=== PATIENT | female | born 1950 | race Caucasian/White ===

== ENCOUNTER → 2016-06-28 | Outpatient (CLI) | payer MEDICARE ==
--- NOTE | 2016-07-04 10:51 | P.ARTDOP ---
Arterial Doppler LOWER EXTREMITY ARTERIAL DOPPLER: DATE OF SERVICE: 06/28/2016 Reason for study: Leg pain. Doppler waveforms: Multiphasic bilaterally throughout. Pulse volume recording: Normal configuration. Pressure gradients: Only at the foot level. Ankle-brachial indices: Greater than 1 bilaterally. Toe pressures: 58 on the right, 66 on the left Impression: Proximally a totally normal study. Decreased toe pressures could relate to distal disease, but more likely is related to physiologic vasospastic phenomenon..
== END | disposition home or self-care (01) ==
LOC: RADUSWWP 12:26
PROVIDERS: ATTEND Family Medicine
DX: R20.2 Paresthesia of skin (principal)
CPT/HCPCS: 93923

== ENCOUNTER 2019-02-11 19:46 | Emergency (ER) | payer MEDICARE, OTHER ==
[2019-02-11 19:54] VITALS: RESP 18
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
--- NOTE | 2019-02-11 21:16 | XR ---
EXAM: XR Left Hip With Pelvis When Performed, 2 or 3 Views CLINICAL HISTORY: Pain TECHNIQUE: Two or three views of the left hip, with pelvis when performed. COMPARISON: No relevant prior studies available. FINDINGS: Bones/joints: No acute fracture or dislocation. Soft tissues: Unremarkable. IMPRESSION: No acute fracture or dislocation.
[2019-02-11 21:35] VITALS: BP 136/78; PULSE 82; TEMP 97.9
== END 2019-02-11 21:35 | disposition home or self-care (01) ==
LOC: EC 19:46
DX: S70.02XA Contusion of left hip, initial encounter (principal); F17.200 Nicotine dependence, unspecified, uncomplicated; Z88.5 Allergy status to narcotic agent; V49.49XA Driver injured in collision with other motor vehicles in traffic accident, initial encounter; Y92.410 Unspecified street and highway as the place of occurrence of the external cause
CPT/HCPCS: 73502; 99284

== ENCOUNTER → 2019-07-09 | Outpatient (CLI) | payer MEDICARE, OTHER ==
--- NOTE | 2019-07-13 09:04 | MM ---
Reason for exam: screening (asymptomatic). Last mammogram was performed 3 years ago. History: Family history of breast cancer in maternal aunt. Benign cyst aspiration of the right breast. Benign excisional biopsy of the left breast. Physical Findings: A clinical breast exam by your physician is recommended on an annual basis and results should be correlated with mammographic findings. MG 3D Screening Mammo W/Cad Bilateral CC and MLO view(s) were taken. Prior study comparison: July 24, 2016, mammogram, performed at [facility]. Focal asymmetry with calcifications. Additional work up recommended. ASSESSMENT: Incomplete: need additional imaging evaluation, BI-RAD 0 RECOMMENDATION: Special view mammogram of the left breast. If lesion persists on supplemental views, image directed ultrasound is recommended. [facility] will attempt to contact patient to return for supplemental views and ultrasound if indicated.
== END | disposition home or self-care (01) ==
LOC: RADMAMWWP 13:43
PROVIDERS: ATTEND Family Medicine
DX: Z12.31 Encounter for screening mammogram for malignant neoplasm of breast (principal); Z80.3 Family history of malignant neoplasm of breast
CPT/HCPCS: 77063; 77067

== ENCOUNTER → 2019-07-22 | Outpatient (CLI) | payer MEDICARE, OTHER ==
--- NOTE | 2019-07-23 08:40 | MM ---
Reason for exam: additional evaluation requested from abnormal screening. Last mammogram was performed less than 1 month ago. History: Patient is postmenopausal. Family history of breast cancer in maternal aunt. Benign cyst aspiration of the right breast. Benign excisional biopsy of the left breast. Physical Findings: Nurse did not find any significant physical abnormalities on exam. MG 3D Work Up W/Cad LT CC with magnification, LM with magnification, and LM view(s) were taken of the left breast. Prior study comparison: July 09, 2019, bilateral MG 3d screening mammo w/cad. July 24, 2016, mammogram, performed at [facility]. The breast tissue is heterogeneously dense. This may lower the sensitivity of mammography. There are linear calcifications spanning 9mm in the lower outer quadrant at middle depth. Indeterminate, biopsy recommended. These results were verbally communicated with the patient and result sheet given to the patient on 07/22/19. ASSESSMENT: Suspicious, BI-RAD 4 RECOMMENDATION: Stereotactic core biopsy of the left breast. Called office with mammographic findings and has scheduled an appointment for the patient for 09/10/19 at 10:[address] Carranza. Biopsy scheduled for 09/11/19. PRELIMINARY REPORT CALLED AND FAXED TO DR. CARRANZA ON 07/23/19.
== END | disposition home or self-care (01) ==
LOC: RADMAMWWP 14:09
PROVIDERS: ATTEND Family Medicine
DX: R92.8 Other abnormal and inconclusive findings on diagnostic imaging of breast (principal)
CPT/HCPCS: 77065; G0279; 77061

== ENCOUNTER → 2019-09-10 | Outpatient (CLI) | payer MEDICARE, OTHER ==
[2019-09-10 10:24] VITALS: BP 95/64; PULSE 64; RESP 14; TEMP 97.3
--- NOTE | 2019-09-10 10:32 | P.GSHP ---
History of Present Illness H&P Date: 09/10/19 Chief Complaint: abnormal mammogram of the left breast Lorie is a 69-year-old white femal seen in consultation for Dr. Parr who [place] [address]. This revealed some focal asymmetry with calcifications and additional views of the left breast was recommended. Nothing of concern was noted in the right breast. The patient had additional views of the left breast performed on 120 920. This revealed linear calcifications spanning 9 mm in the lower outer quadrant at middle depth. Biopsy was recommended. The patient does not feel any masses lumps or nodules in her breast. She does complain of some recent intermittent fleeting discomfort in both breasts. In the right breast is started at the nipple area in the left breast was in the upper quadrant area portion. She does not take any hormone replacement therapy. She had a left breast biopsy 15 years ago in the operating room, no cancer. Caffeine: none smoke: 6/day smoking since 19, 50 years chocolate: daily Family History: maternal aunt: breast cancer brother: colon/liver/lung cancer Hormonal History: menarche: 19 , first born at 21, breast fed: none menopause: partial hysterectomy at 46, did not take ovaries done for endometriosis BCP: 1 year hormones: none Surgical History: 1. Hysterectomy 2. back surgery 3. left breast biopsy 15 years ago 4. needle biopsy on the right breast 5. tubaligation Medical History: 1. hypothyroid 2. COPD Social History: smoke: 50 years; 1?PPD now only 6 cigarettes/day alcohol: none drugs: none - Constitutional Constitutional: Reports sweats, Denies chills, Denies fever - EENT Comment: cataract surgery bilateral Eyes: denies blurred vision, denies pain Ears: deny: decreased hearing, tinnitus Ears, nose, mouth and throat: Denies headache, Denies sore throat - Breasts Breasts: bilateral: as per HPI - Cardiovascular Cardiovascular: Reports shortness of breath, Denies chest pain - Respiratory Comment: COPD - Gastrointestinal Gastrointestinal: Denies abdominal pain, Denies diarrhea, Denies nausea, Denies vomiting - Genitourinary (Female) Genitourinary: Denies dysuria, Denies hematuria - Menstruation Menstruation: Reports post hysterectomy - Musculoskeletal Comment: back surgery - Integumentary Integumentary: Denies pruritus, Denies rash - Neurological Neurological: Denies numbness, Denies weakness - Psychiatric Psychiatric: Denies anxiety, Denies depression - Endocrine Comment: hypothyroid - Hematologic/Lymphatic Comment: aspirin - Allergic/Immunologic Allergic/Immunologic: Reports as per HPI Past Medical History Past Medical History: COPD, Thyroid Disorder History of Any Multi-Drug Resistant Organisms: None Reported Past Surgical History: Breast Surgery, Hysterectomy, Tubal Ligation Past Psychological History: No Psychological Hx Reported Smoking Status: Current every day smoker Past Alcohol Use History: None Reported Past Drug Use History: None Reported Medications and Allergies Home Medications Medication Instructions Recorded Confirmed Type Aspirin [Adult Low Dose Aspirin EC] 81 mg PO DAILY 08/24/19 08/24/19 History Famotidine [Pepcid] 40 mg PO HS 08/24/19 08/24/19 History Fluticasone/Umeclidin/Vilanter 1 inhalation INHALATION DAILY 08/24/19 08/24/19 History [Trelegy Ellipta 100-62.5-25] Levothyroxine Sodium [Levoxyl] 75 mcg PO DAILY 08/24/19 08/24/19 History Montelukast [Singulair] 10 mg PO HS 08/24/19 08/24/19 History PARoxetine HCL [Paxil] 40 mg PO DAILY 08/24/19 08/24/19 History Allergies Allergy/AdvReac Type Severity Reaction Status Date / Time meperidine [From Demerol] Allergy Itching Verified 09/10/19 10:09 morphine Allergy Itching Verified 09/10/19 10:09 codeine AdvReac Nausea & Verified 09/10/19 10:09 Vomiting Surgical - Exam BMI 25.5 - General well developed, well nourished, no distress - Eyes normal ocular movement - ENT no hearing loss, no congestion - Neck no masses, trachea midline - Respiratory normal respiratory effort, clear to auscultation - Cardiovascular Rhythm: regular Heart Sounds: normal: S1, S2 - Abdomen Abdomen: soft, non tender, no guarding, no rigid, no rebound - Integumentary tattoo left breast - Neurologic no disoriented, no combative - Musculoskeletal normal gait, normal posture - Psychiatric oriented to time, oriented to person, oriented to place, speech is normal, memory intact breast exam: BRA 40C inspection tattoo left breast, no nipple inversion Palpation: right breast: Multi-positional exam fibrocystic changes, no dominant masses or nodules of concern Right axilla: No adenopathy of concern Left breast: Tattoo, multiple positional exam no dominant masses or nodules of concern Left axilla: No adenopathy of concern Results mammogram results reviewed abnormal left breast Assessment and Plan Assessment: Impression: 1. Abnormal left breast mammogram 2. Fibrocystic breast changes 3. COPD 4. Aspirin which patient has stopped approximately [id number] 5. Hypothyroid Plan: 1. Stereotactic core biopsy left breast 2. discussed and counselled to stop smoking 3. medical management of medical problems Risks and benefits of stereotactic core biopsy as well as alternatives are discussed with Lorie. Risks include but are not limited to bleeding, infection, or inability to sample the correct area. She understands that if this reveals atypia or is discordant that open biopsy could be recommended. Additionally she stopped her aspirin prior to the procedure. Alternatives would include open surgical biopsy or watchful waiting and at this time they're not recommended. encounter 35 minutes, > 50% of time spent in planning and counselling CC: Amadou Singh, Dr. Parr Time with Patient: Greater than 30
== END ==
LOC: WWCWWP 10:00
PROVIDERS: ATTEND Surgery
DX: Z53.9 Procedure and treatment not carried out, unspecified reason (principal)

== ENCOUNTER → 2019-09-11 | Day surgery (SDC) | payer MEDICARE, OTHER ==
[2019-09-11 07:27] VITALS: RESP 16; TEMP 97.9
--- NOTE | 2019-09-11 09:15 | P.PCN ---
Date of Procedure: 09/11/19 Preoperative Diagnosis: Microcalcifications of concern left breast Postoperative Diagnosis: same Procedure(s) Performed: Stereotactic core biopsy left breast Anesthesia: local Surgeon: Carito Carranza Pathology: other (Breast tissue) Condition: stable Disposition: same day Indications for Procedure: Microcalcifications of concern left breast Operative Findings: Radiograph of the left breast specimen did not reveal calcifications of concern Description of Procedure: Lorie is a 69-year-old white female who on a mammogram was noted to have in the left breast linear calcifications spanning 9 mm in the lower outer quadrant at middle depth. The patient had a second area of calcifications in proximity to this and after review with radiology it was felt that the linear calcification should be sampled and then depending on results if they were positive resection in the operating room of both areas of calcifications were negative a stereo biopsy of the second area of calcifications. The patient understood risks and benefits and wished to proceed. The patient was taken to the stereotactic biopsy room and a bench inspector film was performed. The area of linear calcifications was identified however there were blood vessels in the vicinity and the bench inspector x-ray had to be re-done. It was felt that the vessels were far enough away that we could approach the linear calcifications. A stereo pair was performed and the calcifications were [place]. The breast was prepped using Betadine. 20 mL of 1% lidocaine 10 of which had epinephrine were used to anesthetize the area. An 18-gauge needle which was vacuumed of vacuum-assisted core rotating's biopsy device was given to the correct coordinates. Postoperative film was obtained. 12 core biopsies were obtained. The patient did move during the procedure. The specimen did not reveal the calcifications. The area was attempted to be re-targeted however after review with the radiologist it was felt that there were too many vessels in the vicinity and the patient will be best served by needle localization and excisional biopsy of both the linear calcifications and the area of microcalcifications in proximity to this in the operating room. The patient understands the risks and benefits and this will be scheduled in the near future. Scheduling this contingent on operative waiting room availability secondary to elective cases been postponed at this time because of the corna virus. The patient tolerated the procedure in stable condition. The specimens obtained were sent to pathology. The patient will have a repeat follow-up scheduled for approximately 1 month again depending on coronavirus situation. Plan is that the patient will undergo needle localization and excisional biopsy of the areas of concern in the left breast.
[2019-09-11 09:38] VITALS: BP 117/78; PULSE 61
--- NOTE | 2019-09-11 10:03 | MM ---
EXAMINATION TYPE: MG stereo VAD BX LT DATE OF EXAM: 09/11/2019 COMPARISON: 07/22/2019 CLINICAL HISTORY: Abnormal mammogram. Linear calcifications at the lower outer quadrant at middle dep th spanning 9 mm for which dedicated guided biopsy was recommended. TECHNIQUE: Stereotactic guided core biopsy of left breast. FINDINGS: The procedure of stereotactic guided core biopsy was explained to the patient. Benefits, a lternatives, and risks were discussed. An informed consent was then obtained. Preprocedural timeout was performed. The [facility] pathway for biopsy was chosen. Shortness pathway was CC from below approach. I perform ed the localization, then surgeon, Dr. Gwyn Gamble performed the remainder of the procedure. A vacuum assisted biopsy gun was used to obtain multiple core samples. However targeted calcifications were n ot identified in the specimen radiograph. Repositioning was performed however due to the patient's lo w blood pressure and surrounding vasculature as well as more ill-defined calcifications after the adm inistration of lidocaine, the procedure was discontinued. Dr. Gwyn Gamble discussed this with the manny ent and the patient will be taken to the OR for needle localization. The patient was kept in the radiology department for short stay after the procedure and then discharg ed home in stable condition. Post biopsy mammogram shows the clip to appear in posterior to the [place] calcifications on the preprocedure images. IMPRESSION: UNSUCCESSFUL STEREOTACTIC GUIDED CORE BIOPSY OF A LINEAR 9 MM GROUP OF CALCIFICATIONS IN THE LOWER OU TER QUADRANT OF THE LEFT BREAST, FULL PATHOLOGY RESULTS TO FOLLOW. THE NEED FOR NEEDLE LOCALIZATION WAS DISCUSSED WITH THE PATIENT BY DR. GWYN GAMBLE.
== END ==
LOC: RADMAMWWP 06:53
PROVIDERS: ATTEND Surgery
DX: N60.12 Diffuse cystic mastopathy of left breast (principal); R92.8 Other abnormal and inconclusive findings on diagnostic imaging of breast; N60.82 Other benign mammary dysplasias of left breast; N64.1 Fat necrosis of breast
CPT/HCPCS: 88305; 19081; A4648; J2001

== ENCOUNTER → 2019-11-13 | Outpatient (CLI) | payer MEDICARE, OTHER ==
--- NOTE | 2019-09-22 13:21 | P.PN ---
Progress Note - Text Progress Note Date: 09/22/19 The patient's pathology results reviewed with her. She did move when she was on the stereo table and we were not satisfied that we got hr representative tissue. She is scheduled for needle local excisional biopsy in the operating room. Pathology did reveal benign breast with fibrocystic changes and did have some microcalcifications present. Again we were concerned that we did not have specific hr representative tissue and she is scheduled for needle localized open biopsy in the operating room. She is aware and will be seen the week prior to the biopsy. She is not coming in at this time secondary to concerns regarding the vaughan virus.
[2019-11-13 15:40] VITALS: BP 118/80; PULSE 77; RESP 20; TEMP 98.6
--- NOTE | 2019-11-13 16:13 | P.PN ---
Subjective Progress Note Date: 11/13/19 Principal diagnosis: failed attempt at stero biopsy Lorie is a 69-year-old white female seen in consultation for Dr. Parr who had [place] [address]. This revealed some focal asymmetry with calcifications in the left breast, and a dditional views of the left breast were recommended. Nothing of concern was noted in the right breast. The patient [place] [id number]. This revealed linear calcifications spanning 9 mm in the lower outer quadrant at middle depth. Biopsy was recommended. The patient did not feel any masses lumps or nodules in her breast. She did complain of some recent intermittent fleeting discomfort in both breasts. In the right breast it started at the nipple area; in the left breast it was in the upper quadrant area portion. She does not take any hormone replacement therapy. An attempt at a stero bipsy was done on 09-11-19. The patient moved and the lesion was not felt to be adequetly targeted. There were also felt to be too many vessels in the area after review with radiology. One area was biopsied which was benign, however there was concern that the frontal area of concern had been sampled this was reviewed with radiology. There is felt to be more than one area in the breast and the patient is planning to have needle localization and excisional biopsy of all areas of concern in the left breast. She had a left breast biopsy 15 years ago in the operating room, no cancer. Caffeine: none smoke: 6/day smoking since 19, 50 years chocolate: daily Family History: maternal aunt: breast cancer brother: colon/liver/lung cancer Hormonal History: menarche: 19 , first born at 21, breast fed: none menopause: partial hysterectomy at 46, did not take ovaries done for endometriosis BCP: 1 year hormones: none Surgical History: 1. Hysterectomy 2. back surgery 3. left breast biopsy 15 years ago 4. needle biopsy on the right breast 5. tubaligation Medical History: 1. hypothyroid 2. COPD Social History: smoke: 50 years; 1/PPD now only 6 cigarettes/day alcohol: none drugs: none - Constitutional Constitutional: Reports sweats, Denies chills, Denies fever - EENT Comment: cataract surgery bilateral Eyes: denies blurred vision, denies pain Ears: deny: decreased hearing, tinnitus Ears, nose, mouth and throat: Denies headache, Denies sore throat - Breasts Breasts: bilateral: as per HPI - Cardiovascular Cardiovascular: Reports shortness of breath, Denies chest pain - Respiratory Comment: COPD, smoker - Gastrointestinal Gastrointestinal: Denies abdominal pain, Denies diarrhea, Denies nausea, Denies vomiting - Genitourinary (Female) Genitourinary: Denies dysuria, Denies hematuria - Menstruation Menstruation: Reports post hysterectomy - Musculoskeletal Comment: back surgery - Integumentary Integumentary: Denies pruritus, Denies rash - Neurological Neurological: Denies numbness, Denies weakness - Psychiatric Psychiatric: Denies anxiety, Denies depression - Endocrine Comment: hypothyroid - Hematologic/Lymphatic Comment: aspirin - Allergic/Immunologic Allergic/Immunologic: Reports as per HPI Past Medical History Past Medical History: COPD, Thyroid Disorder History of Any Multi-Drug Resistant Organisms: None Reported Past Surgical History: Breast Surgery, Hysterectomy, Tubal Ligation Past Psychological History: No Psychological Hx Reported Smoking Status: Current every day smoker Past Alcohol Use History: None Reported Past Drug Use History: None Reported Medications and Allergies Home Medications Medication Instructions Recorded Confirmed Type Aspirin [Adult Low Dose Aspirin EC] 81 mg PO DAILY 08/24/19 08/24/19 History Famotidine [Pepcid] 40 mg PO HS 08/24/19 08/24/19 History Fluticasone/Umeclidin/Vilanter 1 inhalation INHALATION DAILY 08/24/19 08/24/19 History [Trelegy Ellipta 100-62.5-25] Levothyroxine Sodium [Levoxyl] 75 mcg PO DAILY 08/24/19 08/24/19 History Montelukast [Singulair] 10 mg PO HS 08/24/19 08/24/19 History PARoxetine HCL [Paxil] 40 mg PO DAILY 08/24/19 08/24/19 History Allergies Allergy/AdvReac Type Severity Reaction Status Date / Time meperidine [From Demerol] Allergy Itching Verified 09/10/19 10:09 morphine Allergy Itching Verified 09/10/19 10:09 codeine AdvReac Nausea & Verified 09/10/19 10:09 Vomiting Objective - Vital Signs Vital signs: Vital Signs Temp 98.6 F 11/13/19 15:37 Pulse 77 11/13/19 15:37 Resp 20 11/13/19 15:37 BP 118/80 11/13/19 15:37 Pulse Ox 95 11/13/19 15:37 Intake & Output 11/12/19 11/13/19 11/13/19 18:59 06:59 18:59 Weight 63.503 kg - Exam BMI 26 - Constitutional General appearance: Present: average body habitus - EENT Eyes: Present: EOMI ENT: Present: hearing grossly normal - Respiratory Respiratory: bilateral: CTA - Cardiovascular Rhythm: regular Heart sounds: normal: S1, S2 - Gastrointestinal General gastrointestinal: Present: normal bowel sounds, soft - Integumentary Integumentary: Present: normal turgor - Musculoskeletal Musculoskeletal: Present: gait normal - Psychiatric Psychiatric: Present: A&O x's 3, appropriate affect, intact judgment & insight - Additional findings Additional findings: breast exam: Problem: 40C Inspection: Ptosis grade 2, no nipple inversion Palpation: Right breast: Multi-positional exam no dominant masses or nodules of concern Right axilla: No adenopathy of concern Left breast: Multi-positional exam no dominant masses or nodules of concern Left axilla: No adenopathy of concern Assessment and Plan Assessment: Impression: 1. Radiographic abnormality left breast 2. Failed stereotactic core biopsy 3. COPD Plan: 1. Needle localization excisional biopsy left breast with possible chondroplasty tissue transfer 2. clearance from Dr. Parr CC: Daniella Metzger encounter 20 minutes, > 50% of time in planning and counselling Time with Patient: Less than 30
== END | disposition home or self-care (01) ==
LOC: WWCWWP 15:32
PROVIDERS: ATTEND Surgery
DX: Z53.9 Procedure and treatment not carried out, unspecified reason (principal)

== ENCOUNTER → 2019-12-08 | Day surgery (SDC) | payer MEDICARE, OTHER ==
[2019-12-07 09:40] VITALS: BMI 27.6
[~2019-12-08] MED LIST: DEXAMETHASONE SOD PHOSPHATE 10 MG/ML 1 ML VIAL IV ONE; HEPARIN SODIUM,PORCINE 5,000 UNIT/ML 1 ML VIAL SQ ONE; HYDROmorphone 0.5 MG/0.5 ML SYRINGE IVP ONE; LACTATED RINGERS 1,000 ML IV ONE; LACTATED RINGERS 1,000 ML IV SCH; LIDOCAINE 1% (10MG/ML) FOR IV START INTRADERMA PRN; LIDOCAINE 1% INJ 10MG/ML (20 ML MDV) ONE; LIDOCAINE 1% INJ 10MG/ML (20 ML MDV) SQ ONE; MIDAZOLAM 2 MG/2 ML VIAL ONE; ONDANSETRON 4 MG/2 ML VIAL IVP ONE; PROPOFOL 10 MG/ML 20 ML VIAL IV ONE; SCOPOLAMINE 1.5MG/72HR PATCH TRANSDERM ONE; ePHEDrine SULFATE/0.9% NACL/PF 50 MG/5 ML SYRINGE IV ONE; fentaNYL (PF) 50 MCG/ML 2 ML AMP IV PRN; fentaNYL (PF) 50 MCG/ML 2 ML AMP ONE
--- NOTE | 2019-12-08 14:33 | P.OP ---
Date of Procedure: 12/08/19 Preoperative Diagnosis: Microcalcifications of concern left breast/failed stereotactic core biopsy Postoperative Diagnosis: Same Procedure(s) Performed: Needle localization excisional biopsy, onco-plastic tissue transfer Anesthesia: GETA Surgeon: Carito Carranza Estimated Blood Loss (ml): 5 IV fluids (ml): 600 Pathology: other (breast tissue) Condition: stable Disposition: same day Indications for Procedure: Suspicious microcalcifications left breast/failed stereotactic core biopsy Operative Findings: Fibrofatty breast tissue Description of Procedure: The patient is a 69-year-old white female with mammographic abnormality of microcalcifications of concern in the left breast. The patient underwent a attempted stereotactic core biopsy which was unsuccessful. She was therefore recommended to undergo localization and excision in the operating room. Following needle localization of area of concern in the left breast the patient was brought to the operating room. The left breast was prepped and draped in a sterile fashion. A vertical incision was made in the inferior breast and the was identified. Surrounding tissue was excised. Medial and lateral pedicles and breast tissue were freed. Approximately 40 mL of tissue was freed. Approximately 20 mL 20 mL laterally. Following this after the specimen was painted for orientation. A radiograph the specimen revealed the area of concern about removed was obtained. The pedicles of tissue brought together using 3-0 Vicryl suture. The skin was then reapproximated using subcutaneous 3-0 Vicryl suture 4-0 subcuticular Monocryl suture. Steri-Strips were applied. The patient tolerated the procedure in stable condition.
--- NOTE | 2019-12-08 14:34 | P.DS ---
Providers Attending physician: Carito Carranza Primary care physician: Shanika Parr Plan - Discharge Summary Discharge Rx Participant: Yes New Discharge Prescriptions: No Action Montelukast [Singulair] 10 mg PO HS Famotidine [Pepcid] 40 mg PO HS PARoxetine HCL [Paxil] 40 mg PO QAM Fluticasone/Umeclidin/Vilanter [Trelegy Ellipta 100-62.5-25] 1 inhalation INHALATION HS Levothyroxine Sodium [Synthroid] 50 mcg PO DAILY Discharge Medication List Famotidine [Pepcid] 40 mg PO HS 08/24/19 [History] Fluticasone/Umeclidin/Vilanter [Trelegy Ellipta 100-62.5-25] 1 inhalation INHALATION HS 08/24/19 [History] Montelukast [Singulair] 10 mg PO HS 08/24/19 [History] PARoxetine HCL [Paxil] 40 mg PO QAM 08/24/19 [History] Levothyroxine Sodium [Synthroid] 50 mcg PO DAILY 12/07/19 [History] Follow up Appointment(s)/Referral(s): Carito Carranza MD [STAFF PHYSICIAN] - 1 Week Activity/Diet/Wound Care/Special Instructions: Do not drive until seen by Dr. Pascal May shower after 48 hours Wear bra all times Discharge Disposition: HOME SELF-CARE
[2019-12-08 14:49] VITALS: RESP 16; TEMP 97.8
--- NOTE | 2019-12-08 14:55 | MM ---
EXAMINATION TYPE: MG pre op needle loc LT, MG surgical specimen LT DATE OF EXAM: 12/08/2019 12:56 PM COMPARISON: NONE HISTORY: Microcalcifications left breast Informed consent was obtained and all the patient's questions were answered. The macrocalcifications in question was localized mammographically. The standard sterile technique was utilized, as well as appropriate local anesthesia with 1% Lidocaine.. Localization needle followed by placement of a guidewire was performed under mammographic guidance. Verification images demonstrate appropriate deployment of the guidewire. The patient tolerated the procedure well and left the department in stable condition. Specimen radiograph demonstrates the microcalcifications in question to reside within the specimen. IMPRESSION: Successful needle localization and open biopsy left breast with pathology results pending . 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 See Surgical Pathology Cancer Case Summary and Comment. Recommendation Surgical consult of the left breast. MOSES
[2019-12-08 15:39] VITALS: BP 126/71; PULSE 75
--- NOTE | 2019-12-15 10:32 | MM ---
MG Surgical Specimen LT EXAMINATION TYPE: MG pre op needle loc LT, MG surgical specimen LT DATE OF EXAM: 12/08/2019 12:56 PM COMPARISON: NONE HISTORY: Microcalcifications left breast Informed consent was obtained and all the patient's questions were answered. The macrocalcifications in question was localized mammographically. The standard sterile technique was utilized, as well as appropriate local anesthesia with 1% Lidocaine.. Localization needle followed by placement of a guidewire was performed under mammographic guidance. Verification images demonstrate appropriate deployment of the guidewire. The patient tolerated the procedure well and left the department in stable condition. Specimen radiograph demonstrates the microcalcifications in question to reside within the specimen. IMPRESSION: Successful needle localization and open biopsy left breast with pathology results pending. RECOMMENDATION: Surgical consultation of the left breast. Oncologic management. YENYD
== END | disposition home or self-care (01) ==
LOC: OR 09:32
PROVIDERS: ATTEND Surgery
DX: C50.912 Malignant neoplasm of unspecified site of left female breast (principal); E03.9 Hypothyroidism, unspecified; J43.9 Emphysema, unspecified; F17.210 Nicotine dependence, cigarettes, uncomplicated; N64.81 Ptosis of breast; K08.109 Complete loss of teeth, unspecified cause, unspecified class; E78.5 Hyperlipidemia, unspecified; Z17.1 Estrogen receptor negative status [ER-]; Z88.5 Allergy status to narcotic agent; Z98.890 Other specified postprocedural states; Z90.710 Acquired absence of both cervix and uterus; Z87.42 Personal history of other diseases of the female genital tract; Z98.51 Tubal ligation status; Z98.41 Cataract extraction status, right eye; Z98.42 Cataract extraction status, left eye; Z79.82 Long term (current) use of aspirin; Z79.899 Other long term (current) drug therapy; Z79.51 Long term (current) use of inhaled steroids; Z79.890 Hormone replacement therapy; Z80.3 Family history of malignant neoplasm of breast; Z80.0 Family history of malignant neoplasm of digestive organs; Z80.1 Family history of malignant neoplasm of trachea, bronchus and lung
CPT/HCPCS: 19125; 88342; 88307; 88341; 76098; 19281; J2250; J1644; J1100; J2405; J2001; J3010; J2704; J1170

== ENCOUNTER → 2019-12-17 | Outpatient (CLI) | payer MEDICARE, OTHER ==
[2019-12-17 15:49] VITALS: BP 97/75; PULSE 78; RESP 20; TEMP 98.2
--- NOTE | 2019-12-17 16:00 | P.PN ---
Progress Note - Text Progress Note Date: 12/17/19 Lorie is a 69 year old white female status post a left breast needle local excisional biopsy of an area of concern. Pathology came back as invasive moderately differentiated ductal carcinoma grade 2 and high-grade DCIS, margins were negative. The lesion is ER/AR negative and HER-2 positive. It is a grade 2 lesion. The DCIS component is 1 mm from the superior margin. Of concern is the fact that the patient has a second area of calcification of concern in the breast for which biopsy would be recommended depending on the results of biopsy of this area. Biopsy can be attempted again stereotactic method versus open biopsy. After discussion with the patient we are going to attempt a stereo biopsy of the second area in the left breast. Secondary to the recent surgery this was performed in approximately 1 month. She understands that if this comes back negative still potentially recommend a sentinel node biopsy. We have discussed treatment options for cancer which would include mastectomy, and sentinel node biopsy, possible axillary node disection; plus or minus reconstruction versus radiation therapy and sentinel node biopsy. The patient understands the risks and benefits and wishes to proceed with attempt of stero biopsy, and follow with sentinal node biopsy. The patient is doing well post lumpectomy of the left breast. Risks and benefits of stereo biopsy as well as sentinel node biopsy have been discussed with the patient She understands and wishes to proceed at this time with stereo biopsy. Physical exam: Incision clean and dry inferior aspect of left breast Resolving ecchymosis the biopsy site Impression: 1. Stage IA, left breast cancer 2. second area of concern on mammogram of the left breast Plan: 1. Stereo biopsy of the left breast 2. [place] node biopsy after results of the left breast stereo biopsy 3. Patient may outflow mastectomy after results of stereo biopsy CC: DR. Keshav Zee encounter 30 minutes, > 50 % of time in planning and counselling
== END | disposition home or self-care (01) ==
LOC: WWCWWP 15:13
PROVIDERS: ATTEND Surgery
DX: Z53.9 Procedure and treatment not carried out, unspecified reason (principal)

== ENCOUNTER → 2020-01-21 | Day surgery (SDC) | payer MEDICARE, OTHER ==
[2020-01-21 07:30] VITALS: BP 93/66; PULSE 75; RESP 16; TEMP 98.1
--- NOTE | 2020-01-21 09:00 | P.PN ---
Subjective Progress Note Date: 01/21/20 Principal diagnosis: left breast Stage IA breast cancer Lorie is a 69-year-old white female seen in consultation for Dr. Parr who [place] [address]. This revealed some focal asymmetry with calcifications and additional views of the left breast was recommended. Nothing of concern was noted in the right breast. The patient [place] [address]. This revealed linear calcifications spanning 9 mm in the lower outer quadrant at middle depth. Biopsy was recommended. The patient does not feel any masses lumps or nodules in her breast. She does complain of some recent intermittent fleeting discomfort in both breasts. In the right breast is started at the nipple area in the left breast was in the upper quadrant area portion. She does not take any hormone replacement therapy. She underwent an attempted stereotactic core biopsy of the left breast on 09-11-19, the patient however moved to do the procedure and it was felt that we did not adequately sample the area of concern. Pathology from that revealed reactive metaplastic changes and fat necrosis. Secondary to covid under needle localization and excisional biopsy was performed until 12-08-19. 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 The margins were negative. The tumor size was 7 mm this was grade 2 there was noted to be extensive DCIS. The margins were however negative. This was ER/VT negative and HER-2/geo positive. Her case was presented at tumor board on 0420. Recommendation was for stereotactic core biopsy of this secondary of calcifications of biopsy positive the mastectomy with sentinel node biopsy. If biopsy was negative the lumpectomy with sentinel node biopsy. Initially there was some concern that there was a second area of calcification which were biopsied the left breast, however on attempted stereo biopsy of this area repeat mammogram did not reveal any area of concern as per Dr. Bustillo. She had a left breast biopsy 15 years ago in the operating room, no cancer. Caffeine: none smoke: 6/day smoking since 19, 50 years chocolate: daily Family History: maternal aunt: breast cancer brother: colon/liver/lung cancer Hormonal History: menarche: 19 , first born at 21, breast fed: none menopause: partial hysterectomy at 46, did not take ovaries done for endometriosis BCP: 1 year hormones: none Surgical History: 1. Hysterectomy 2. back surgery 3. left breast biopsy 15 years ago 4. needle biopsy on the right breast 5. tubaligation Medical History: 1. hypothyroid 2. COPD Social History: smoke: 50 years; 1?PPD now only 6 cigarettes/day alcohol: none drugs: none - Constitutional Constitutional: Reports sweats, Denies chills, Denies fever - EENT Comment: cataract surgery bilateral Eyes: denies blurred vision, denies pain Ears: deny: decreased hearing, tinnitus Ears, nose, mouth and throat: Denies headache, Denies sore throat - Breasts Breasts: bilateral: as per HPI - Cardiovascular Cardiovascular: Reports shortness of breath, Denies chest pain - Respiratory Comment: COPD - Gastrointestinal Gastrointestinal: Denies abdominal pain, Denies diarrhea, Denies nausea, Denies vomiting - Genitourinary (Female) Genitourinary: Denies dysuria, Denies hematuria - Menstruation Menstruation: Reports post hysterectomy - Musculoskeletal Comment: back surgery - Integumentary Integumentary: Denies pruritus, Denies rash - Neurological Neurological: Denies numbness, Denies weakness - Psychiatric Psychiatric: Denies anxiety, Denies depression - Endocrine Comment: hypothyroid - Hematologic/Lymphatic Comment: aspirin - Allergic/Immunologic Allergic/Immunologic: Reports as per HPI Objective - Vital Signs Vital signs: Vital Signs Temp 98.1 F 01/21/20 07:16 Pulse 75 01/21/20 07:16 Resp 16 01/21/20 07:16 BP 93/66 01/21/20 07:16 Pulse Ox Intake & Output 01/20/20 01/21/20 01/21/20 18:59 06:59 18:59 Weight 61.235 kg - Exam BMI 25.5 - Constitutional General appearance: Present: average body habitus - EENT Eyes: Present: EOMI ENT: Present: hearing grossly normal - Neck Neck: Present: normal ROM - Respiratory Respiratory: bilateral: CTA - Cardiovascular Rhythm: regular Heart sounds: normal: S1, S2 - Gastrointestinal General gastrointestinal: Present: normal bowel sounds, soft - Integumentary Integumentary: Present: normal turgor - Musculoskeletal Musculoskeletal: Present: gait normal - Psychiatric Psychiatric: Present: A&O x's 3, appropriate affect, intact judgment & insight - Additional findings Additional findings: Breast exam: BRA 42C inspection: Insertion left breast clean and dry well-healed, bilateral grade 2 ptosis Patient: Right breast: Multiple positional exam fibrocystic changes, no dominant masses or nodules of concern right axilla: No adenopathy of concern Left breast: Well-healed scar from prior surgery, no dominant masses or nodules of concern Left axilla: No adenopathy of concern Assessment and Plan Assessment: Impression: 1. Stage IA left breast cancer, status post lumpectomy 2. Attempted stereo biopsy of second area of microcalcifications left breast/on repeat mammogram of left breast microcalcifications of concern are not identified this is reviewed with Dr. Bustillo therefore no further biopsy has been done 3. Patient's case presented at tumor board and 7720 we will proceed with a sentinel node biopsy Plan: 1. [place] node injection left breast, sentinel node biopsy, possible axillary node dissection 2. Follow-up with radiation oncology 3. Follow-up with medical oncology 4. Medical clearance I discussed with the patient that no area of second microcalcifications of concern identified in the left [place] [address] Bustillo. Therefore stereotactic core biopsy was canceled. The pathology from open biopsy on 12-08-19 revealed invasive ductal carcinoma as well as DCIS with negative margins. The patient was given the option of a mastectomy plus or minus reconstruction versus sentinel node biopsy possible axillary node dissection, versus lumpectomy with sentinel node biopsy possible axillary node dissection. The patient at this time does not wish to undergo a mastectomy. She understands that there will be the necessity of radiation therapy. Additionally she is ER/VT negative but HER-2 positive. She will follow with medical oncology. CC: DR. Parr encounter 30 minutes, > 50% of time in planning and counselling
--- NOTE | 2020-01-21 09:23 | MM ---
EXAMINATION TYPE: MG discontinued stereo core LT DATE OF EXAM: 01/21/2020 COMPARISON: Prior mammogram dated July 22, 2019, 09/11/2019 and 12/08/2019 CLINICAL HISTORY: Abnormal mammogram The abnormal calcifications identified on previous mammogram are no longer evident. IMPRESSION: Discontinued stereotactic core biopsy, case discussed with referring clinician
== END ==
LOC: RADMAMWWP 07:00
PROVIDERS: ATTEND Surgery
DX: R92.8 Other abnormal and inconclusive findings on diagnostic imaging of breast (principal); Z53.8 Procedure and treatment not carried out for other reasons; C50.912 Malignant neoplasm of unspecified site of left female breast; N64.81 Ptosis of breast; N60.11 Diffuse cystic mastopathy of right breast; F17.210 Nicotine dependence, cigarettes, uncomplicated; E03.9 Hypothyroidism, unspecified; J44.9 Chronic obstructive pulmonary disease, unspecified; Z87.42 Personal history of other diseases of the female genital tract; Z90.710 Acquired absence of both cervix and uterus; Z98.890 Other specified postprocedural states; Z98.51 Tubal ligation status; Z98.41 Cataract extraction status, right eye; Z98.42 Cataract extraction status, left eye; Z80.3 Family history of malignant neoplasm of breast; Z80.0 Family history of malignant neoplasm of digestive organs; Z80.1 Family history of malignant neoplasm of trachea, bronchus and lung

== ENCOUNTER → 2020-01-21 | Outpatient (CLI) | payer MEDICARE, OTHER ==
[2020-01-21 08:41] VITALS: BP 93/66; PULSE 75; RESP 16; TEMP 98.1
== END | disposition home or self-care (01) ==
LOC: WWCWWP 08:27
PROVIDERS: ATTEND Surgery
DX: Z53.9 Procedure and treatment not carried out, unspecified reason (principal)

== ENCOUNTER 2020-01-26 06:43 | Day surgery (SDC) | payer MEDICARE, OTHER ==
[2020-01-22 08:25] VITALS: BMI 26.4
[~2020-01-26 06:43] MED LIST changes: -HYDROmorphone 0.5 MG/0.5 ML SYRINGE IVP ONE; -LACTATED RINGERS 1,000 ML IV ONE; -LIDOCAINE 1% (10MG/ML) FOR IV START INTRADERMA PRN; -LIDOCAINE 1% INJ 10MG/ML (20 ML MDV) ONE; -LIDOCAINE 1% INJ 10MG/ML (20 ML MDV) SQ ONE; +MIDAZOLAM 2 MG/2 ML VIAL IV PRN; -MIDAZOLAM 2 MG/2 ML VIAL ONE; -PROPOFOL 10 MG/ML 20 ML VIAL IV ONE; +Pre Op ABX Message 1 EACH MISC MISCELLANE ONE; -SCOPOLAMINE 1.5MG/72HR PATCH TRANSDERM ONE; -ePHEDrine SULFATE/0.9% NACL/PF 50 MG/5 ML SYRINGE IV ONE; -fentaNYL (PF) 50 MCG/ML 2 ML AMP ONE
[2020-01-26] MEDS ORDERED: ALPRAZolam 0.25 MG TAB ONE (07:24)
[2020-01-26] MEDS ORDERED: LIDOCAINE 1% (10MG/ML) FOR IV START INTRADERMA ONE (07:27)
[2020-01-26] MEDS ORDERED: ONDANSETRON 4 MG/2 ML VIAL ONE (08:44)
[2020-01-26] MEDS ORDERED: HEPARIN SODIUM,PORCINE 5,000 UNIT/ML 1 ML VIAL ONE (08:44)
--- NOTE | 2020-01-26 08:49 | NM ---
EXAMINATION TYPE: NM sentinel node injection DATE OF EXAM: 01/26/2020 COMPARISON: NONE HISTORY: Left breast CA TECHNIQUE AND FINDINGS: The procedure of sentinel lymph node injection was explained to the patient. The benefits, alternatives, and risks were discussed. An informed consent was then obtained. Overlying skin is cleaned with sterile alcohol. Following this, 520 uCi Tc99m Tilmanocept was inject ed in the upper outer aspect of the left nipple intradermally. The patient tolerated the procedure well without any immediate complication. The patient was kept in the radiology department for short stay after the procedure and then taken to surgery for surgical p rocedure what is presumed intraoperative gamma probe will be used for sentinel lymph node detection. IMPRESSION: Left breast radiotracer injection for sentinel node localization as above.
[2020-01-26] MEDS ORDERED: PROPOFOL 10 MG/ML 20 ML VIAL IV ONE (10:13)
[2020-01-26] MEDS ORDERED: MIDAZOLAM 2 MG/2 ML VIAL ONE (10:13)
[2020-01-26] MEDS ORDERED: ePHEDrine SULFATE/0.9% NACL/PF 50 MG/5 ML SYRINGE IV ONE (10:13)
[2020-01-26] MEDS ORDERED: fentaNYL (PF) 50 MCG/ML 2 ML AMP ONE (10:13)
[2020-01-26] MEDS ORDERED: LIDOCAINE 1% INJ 10MG/ML (20 ML MDV) ONE (10:13)
[2020-01-26] MEDS ORDERED: LIDOCAINE 1% INJ 10MG/ML (20 ML MDV) SQ ONE (10:45)
[2020-01-26] MEDS ORDERED: LACTATED RINGERS 1,000 ML IV ONE (11:14)
--- NOTE | 2020-01-26 11:17 | P.OP ---
Date of Procedure: 01/26/20 Preoperative Diagnosis: Stage I a left breast cancer Postoperative Diagnosis: Same Procedure(s) Performed: Left sentinel node biopsy Anesthesia: GISSELL Surgeon: Carito Carranza Estimated Blood Loss (ml): 5 IV fluids (ml): 800 Pathology: other (Left axillary tissue and sentinel node) Condition: stable Disposition: same day Indications for Procedure: The patient is a 70-year-old white female who had a needle local excisional biopsy of a of concern on the mammographic abnormality. She had an attempted stereo biopsy which was unsuccessful. Pathology revealed DCIS and invasive ductal carcinoma. Margins were negative. It was therefore recommended she undergo a sentinel node biopsy. Operative Findings: Radioactive sentinel lymph node identified Description of Procedure: The patient is a 70-year-old white female who had a needle local excisional biopsy of a of concern on the mammographic abnormality. She had an attempted stereo biopsy which was unsuccessful. Pathology revealed DCIS and invasive ductal carcinoma. Margins were negative. It was therefore recommended she undergo a sentinel node biopsy. The patient was taken to the operating room following injection of lympha tic kind in the preoperative area. After she was asleep, and neoprobe was used to ascertain that the radioactivity a travel to the axilla. This was demonstrated. The left axilla was prepped and draped in a sterile fashion. Using the neoprobe. Highest radioactivity was identified. An incision was made over this area and the tissues were grasped using an Allis clamp. Using the LigaSure and the tissues were divided. The radioactive sentinel node had a 10 second radioactivity count was 1689. The background count was 29 at 10 seconds. Surrounding axillary tissue was removed with the specimen. The wound was well irrigated. After assured that hemostasis was attained the deep tissues were closed using 3-0 Vicryl suture. The skin was closed using 4-0 Monocryl. The specimen was sent to pathology. The dissection and will be obtained. The patient tolerated procedure in stable condition.
--- NOTE | 2020-01-26 11:19 | P.DS ---
Providers Attending physician: Carito Carranza Primary care physician: Shanika Parr Plan - Discharge Summary Discharge Rx Participant: No New Discharge Prescriptions: No Action Montelukast [Singulair] 10 mg PO HS Famotidine [Pepcid] 40 mg PO HS PARoxetine HCL [Paxil] 40 mg PO QAM Fluticasone/Umeclidin/Vilanter [Trelegy Ellipta 100-62.5-25] 1 inhalation INHALATION HS Levothyroxine Sodium [Synthroid] 50 mcg PO DAILY Docusate [Colace] 100 mg PO DAILY Acetaminophen [Tylenol Extra Strength] 1,000 mg PO HS Discharge Medication List Famotidine [Pepcid] 40 mg PO HS 08/24/19 [History] Fluticasone/Umeclidin/Vilanter [Trelegy Ellipta 100-62.5-25] 1 inhalation INHALATION HS 08/24/19 [History] Montelukast [Singulair] 10 mg PO HS 08/24/19 [History] PARoxetine HCL [Paxil] 40 mg PO QAM 08/24/19 [History] Levothyroxine Sodium [Synthroid] 50 mcg PO DAILY 12/07/19 [History] Acetaminophen [Tylenol Extra Strength] 1,000 mg PO HS 01/07/20 [History] Docusate [Colace] 100 mg PO DAILY 01/07/20 [History] Follow up Appointment(s)/Referral(s): Carito Carranza MD [STAFF PHYSICIAN] - 1 Week Activity/Diet/Wound Care/Special Instructions: Current drive for 24 hours from discharge May shower after 48 hours Discharge Disposition: HOME SELF-CARE
[2020-01-26 11:33] VITALS: TEMP 97
[2020-01-26 12:37] VITALS: RESP 16
[2020-01-26 13:53] VITALS: BP 95/50; PULSE 70
--- NOTE | 2020-01-28 09:04 | CDI ---
The left axillary tissue was a deep excision. Date: 01.28.2020 CDS/Assistant Program Manager Name: Itzel Vincent Phone: If any questions, call Suki Garcia Floor Attendant at [phone] Patient Name: Lorie Szymanski Admit Date 01.26.20 Discharge Date: 01.26.20 ATTENTION: The [facility] Coding Staff appreciate your assistance in clarifying documentation. Please respond to the clarification below the line at the bottom and electronically sign. The [facility] Coding staff will review the response and follow-up if needed. Please note: Queries are made part of the Legal Health Record. If you have any questions, please contact the Floor Attendant. Dear Please document whether the excisional biopsy of the left axillary tissue and sentinel lymph node biopsy was deep or superficial. __Deep __Superficial Thank you for your kind consideration. MTDD
== END 2020-01-26 14:19 | disposition home or self-care (01) ==
LOC: OR 06:43
PROVIDERS: ATTEND Surgery
DX: I89.8 Other specified noninfective disorders of lymphatic vessels and lymph nodes (principal); C50.512 Malignant neoplasm of lower-outer quadrant of left female breast; E03.9 Hypothyroidism, unspecified; J44.9 Chronic obstructive pulmonary disease, unspecified; N64.81 Ptosis of breast; N60.11 Diffuse cystic mastopathy of right breast; E78.5 Hyperlipidemia, unspecified; F17.210 Nicotine dependence, cigarettes, uncomplicated; Z88.5 Allergy status to narcotic agent; Z98.890 Other specified postprocedural states; Z90.710 Acquired absence of both cervix and uterus; Z87.42 Personal history of other diseases of the female genital tract; Z98.51 Tubal ligation status; Z98.41 Cataract extraction status, right eye; Z98.42 Cataract extraction status, left eye; Z17.1 Estrogen receptor negative status [ER-]; Z79.899 Other long term (current) drug therapy; Z79.51 Long term (current) use of inhaled steroids; Z79.890 Hormone replacement therapy; Z97.2 Presence of dental prosthetic device (complete) (partial); Z91.89 Other specified personal risk factors, not elsewhere classified; Z80.3 Family history of malignant neoplasm of breast; Z80.0 Family history of malignant neoplasm of digestive organs; Z80.1 Family history of malignant neoplasm of trachea, bronchus and lung
CPT/HCPCS: 88342; 88307; 88341; 38792; 38525; A9520; J2250; J1644; J1100; J2405; J2001; J3010; J2704

== ENCOUNTER → 2020-02-11 | Outpatient (CLI) | payer MEDICARE, OTHER ==
[2020-02-11 15:28] VITALS: BP 115/77; PULSE 73; RESP 16; TEMP 98.2
--- NOTE | 2020-02-11 15:51 | P.PN ---
Progress Note - Text Progress Note Date: 02/11/20 Lorie is a 70 year old white female status post a left breast lumpectomy for a stage IA breast cancer. This was initially for an area of concern noted on mammogram [place] [address]. Pathology from that revealed metaplastic changes of fat necrosis. Secondary to close it under needle localization excisional biopsy was not performed until 09755. The pathology then revealed invasive moderately differentiated ductal carcinoma and high-grade DCIS. The margins were negative. The tumor size was 7 mm it was a grade 2 and noted to be extensive DCIS. It was ER/DE negative and HER-2/geo positive. Her case was presented at tumor board and 7720 and recommendation was for a stereo biopsy of a secondary of calcifications within the left breast. An attempted this was performed but the area could not be reproduced well and as per Dr. Bustillo from radiology was felt that this area should be followed. He was also recommended that she have a sentinel node biopsy performed. This was done on 01-26-20, and sentinel lymph nodes were negative for malignancy. Patient has no complaints at this time. Physical exam: Incision: Clean and dry axilla and the left breast lumpectomy site Lungs: Clear Heart: Regular rate and rhythm Impression: Patient doing well status post recent sentinel node biopsy Plan: 1. Appointment made medical oncology 2. Platelet radiation oncology 3. Follow appearance 4 months Cc: Daniella Metzger
== END | disposition home or self-care (01) ==
LOC: WWCWWP 15:09
PROVIDERS: ATTEND Surgery
DX: Z53.9 Procedure and treatment not carried out, unspecified reason (principal)

== ENCOUNTER → 2020-03-22 | Outpatient (CLI) | payer MEDICARE, OTHER ==
--- NOTE | 2020-03-23 17:43 | ECHOF ---
Referral Reason:Z70.818 pre chemo MEASUREMENTS -------- HEIGHT: 157.5 cm WEIGHT: 62.1 kg BP: RVIDd: 2.7 cm (< 3.3) IVSd: 1.1 cm (0.6 - 1.1) LVIDd: 3.9 cm (3.9 - 5.3) LVPWd: 1.1 cm (0.6 - 1.1) IVSs: 1.7 cm LVIDs: 3.2 cm LVPWs: 1.2 cm LAESV Index (A-L): 18.86 ml/m Ao Diam: 3.1 cm (2.0 - 3.7) AV Cusp: 2.0 cm (1.5 - 2.6) LA Diam: 2.4 cm (2.7 - 3.8) MV EXCURSION: 17.297 mm (> 18.000) MV EF SLOPE: 103 mm/s (70 - 150) EPSS: 1.8 cm MV E Quentin: 0.65 m/s MV DecT: 279 ms MV A Quentin: 0.75 m/s MV E/A Ratio: 0.87 RAP: 5.00 mmHg RVSP: 8.92 mmHg FINDINGS -------- This was a technically adequate study. The left ventricular size is normal. There is mild concentric left ventricular hypertrophy. Overa ll left ventricular systolic function is normal with, an EF between 55 - 60 %. The right ventricle is normal in size. The left atrial size is normal. Normal LA size by volume 22+/-6 ml/m2. The right atrial size is normal. The aortic valve is trileaflet and appears structurally normal. The mitral valve is normal. There is trace mitral regurgitation. The tricuspid valve appears structurally normal. Trace tricuspid regurgitation present. Right felisha tricular systolic pressure is normal at < 35 mmHg. There is no pulmonic regurgitation present. The aortic root size is normal. Normal inferior vena cava with normal inspiratory collapse consistent with estimated right atrial pre ssure of 5 mmHg. There is no pericardial effusion. CONCLUSIONS -------- 1. The left ventricular size is normal. 2. There is mild concentric left ventricular hypertrophy. 3. Overall left ventricular systolic function is normal with, an EF between 55 - 60 %. 4. There is trace mitral regurgitation. 5. Trace tricuspid regurgitation present. 6. There is no pericardial effusion. TITLE CLERK: Carol Mancini RDCS
== END | disposition home or self-care (01) ==
LOC: RADECHMAIN 12:52
PROVIDERS: ATTEND Internal Medicine Hematology & Oncology
DX: Z01.818 Encounter for other preprocedural examination (principal); I51.7 Cardiomegaly; Z88.5 Allergy status to narcotic agent
CPT/HCPCS: 93306

== ENCOUNTER → 2020-05-13 | Outpatient (CLI) | payer MEDICARE, OTHER ==
[2020-05-13 11:35] VITALS: BP 109/71; PULSE 84; RESP 18; TEMP 98.2
--- NOTE | 2020-05-13 12:00 | P.PN ---
Subjective Progress Note Date: 05/13/20 Principal diagnosis: stage IA left breast cancer surveillance left breast Stage IA breast cancer; [id number] Lorie is a 70-year-old white female seen in consultation for Dr. Parr who [place] [address]. This revealed some focal asymmetry with calcifications and additional views of the left breast was recommended. Nothing of concern was noted in the right breast. The [place] [address]. This revealed linear calcifications spanning 9 mm in the lower outer quadrant at middle depth. Biopsy was recommended. The patient did not feel any masses lumps or nodules in her breast. She underwent an attempted stereotactic core biopsy of the left breast on 09-11-19, the patient however moved during the procedure and it was felt that we did not adequately sample the area of concern. Pathology from this revealed reactive metaplastic changes and fat necrosis. Secondary to covid her needle localization and excisional biopsy was not performed until 12-08-19. 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 The margins were negative. The tumor size was 7 mm this was grade 2 there was noted to be extensive DCIS. The margins were however negative. This was ER/CA negative and HER-2/geo positive. Her case was presented at tumor board on 8228. Recommendation was for stereotactic core biopsy of a second area of calcifications in the left breast, if this were biopsy positive then mastectomy with sentinel node biopsy would be recommended, If biopsy was negative the lumpectomy with sentinel node biopsy. Initially there was some concern that there was a second area of calcification which were to be biopsied in the left breast, however on attempted stereo biopsy of this area repeat mammogram did not reveal any area of concern as per Dr. Bustillo. She had a SNB on 01-26-20 with no evidence of metastatic disease. She is now receiving chemotherapy with Taxol and Herceptin. No hormonal therapy. She completed 30 days of radiation in February. She has no complaints. She had a left breast biopsy 15 years ago in the operating room, no cancer. Caffeine: none smoke: 6/day smoking since 19, 50 years chocolate: daily Family History: maternal aunt: breast cancer brother: colon/liver/lung cancer Hormonal History: menarche: 19 , first born at 21, breast fed: none menopause: partial hysterectomy at 46, did not take ovaries done for endometriosis BCP: 1 year hormones: none Surgical History: 1. Hysterectomy 2. back surgery 3. left breast biopsy 15 years ago 4. needle biopsy on the right breast 5. tubaligation 6. left bresat lumpectomy and SNB Medical History: 1. hypothyroid 2. COPD Social History: smoke: 50 years; 1/PPD now only 6 cigarettes/day alcohol: none drugs: none - Constitutional Constitutional: Reports sweats, Denies chills, Denies fever - EENT Comment: cataract surgery bilateral Eyes: denies blurred vision, denies pain Ears: deny: decreased hearing, tinnitus Ears, nose, mouth and throat: Denies headache, Denies sore throat - Breasts Breasts: bilateral: as per HPI - Cardiovascular Cardiovascular: Reports shortness of breath, Denies chest pain - Respiratory Comment: COPD - Gastrointestinal Gastrointestinal: Denies abdominal pain, Denies diarrhea, Denies nausea, Denies vomiting - Genitourinary (Female) Genitourinary: Denies dysuria, Denies hematuria - Menstruation Menstruation: Reports post hysterectomy - Musculoskeletal Comment: back surgery - Integumentary Integumentary: Denies pruritus, Denies rash - Neurological Neurological: Denies numbness, Denies weakness - Psychiatric Psychiatric: Denies anxiety, Denies depression - Endocrine Comment: hypothyroid - Hematologic/Lymphatic Comment: aspirin - Allergic/Immunologic Allergic/Immunologic: Reports as per HPI Objective - Vital Signs Vital signs: Vital Signs Temp 98.2 F 05/13/20 11:32 Pulse 84 05/13/20 11:32 Resp 18 05/13/20 11:32 BP 109/71 05/13/20 11:32 Pulse Ox 97 05/13/20 11:32 Intake & Output 05/12/20 05/13/20 05/13/20 18:59 06:59 18:59 Weight 63.957 kg - Exam BMI 25.8 - Constitutional General appearance: Present: average body habitus - EENT Eyes: Present: EOMI ENT: Present: hearing grossly normal - Neck Neck: Present: normal ROM - Respiratory Respiratory: bilateral: CTA - Cardiovascular Rhythm: regular Heart sounds: normal: S1, S2 - Gastrointestinal General gastrointestinal: Present: soft - Integumentary Integumentary: Present: normal turgor - Musculoskeletal Musculoskeletal: Present: gait normal - Psychiatric Psychiatric: Present: A&O x's 3, appropriate affect - Additional findings Additional findings: breast exam: BRA: 40C inspection: bilateral ptosis grade 1/2 well healed scar left breast palpation: right breast: Multiple positional exam fibrocystic changes, no dominant masses or nodules of concern Right axilla: No adenopathy of concern Left breast: Multiple positional exam well-healed scar, postop changes, multiple positional exam no dominant masses or nodules of concern, no evidence of recurrent cancer Left axilla: No adenopathy of concern Assessment and Plan Assessment: Impression: 1. Left breast stage I a carcinoma/no evidence of recurrent disease 2. Fibrocystic breast changes 3. Patient complaining chemotherapy Plan: 1. Complete chemotherapy 2. Follow-up when necessary 3 months 4. Bilateral mammogram July 2020 CC: Daniella Zee encounter 25minutes, > 50% of time in planning and counselling
== END | disposition home or self-care (01) ==
LOC: WWCWWP 11:07
PROVIDERS: ATTEND Surgery
DX: Z53.9 Procedure and treatment not carried out, unspecified reason (principal)

== ENCOUNTER → 2020-05-24 | Outpatient (CLI) | payer MEDICARE, OTHER ==
--- NOTE | 2020-05-24 12:34 | ECHOF ---
Referral Reason:Z01.818 Chemo Exposure MEASUREMENTS -------- HEIGHT: 157.5 cm WEIGHT: 63.5 kg BP: RVIDd: 2.8 cm (< 3.3) IVSd: 1.1 cm (0.6 - 1.1) LVIDd: 4.4 cm (3.9 - 5.3) LVPWd: 1.4 cm (0.6 - 1.1) IVSs: 1.2 cm LVIDs: 4.0 cm LVPWs: 1.1 cm LA Diam: 3.7 cm (2.7 - 3.8) LAESV Index (A-L): 20.26 ml/m Ao Diam: 3.5 cm (2.0 - 3.7) AV Cusp: 1.5 cm (1.5 - 2.6) MV EXCURSION: 23.102 mm (> 18.000) MV EF SLOPE: 132 mm/s (70 - 150) EPSS: 0.8 cm RAP: 5.00 mmHg RVSP: 18.61 mmHg FINDINGS -------- This was a technically adequate study. The left ventricular size is normal. Left ventricular wall thickness is normal. Overall left vent ricular systolic function is low-normal with, an EF between 50 - 55 %. The right ventricle is normal in size. Normal LA size by volume 22+/-6 ml/m2. The right atrial size is normal. The aortic valve is trileaflet, and appears structurally normal. No aortic stenosis or regurgitation. The mitral valve is normal. Mild mitral regurgitation is present. The tricuspid valve appears structurally normal. Mild tricuspid regurgitation present. Right vent ricular systolic pressure is normal at < 35 mmHg. Trace/mild (physiologic) pulmonic regurgitation. The aortic root size is normal. There is a trivial pericardial effusion present. CONCLUSIONS -------- 1. Overall left ventricular systolic function is low-normal with, an EF between 50 - 55 %. 2. Normal LA size by volume 22+/-6 ml/m2. 3. The aortic valve is trileaflet, and appears structurally normal. No aortic stenosis or regurgitati on. 4. Mild mitral regurgitation is present. 5. Mild tricuspid regurgitation present. 6. Trace/mild (physiologic) pulmonic regurgitation. 7. There is a trivial pericardial effusion present. BUSINESS LAWYER: Emma Boston RDCS
== END | disposition home or self-care (01) ==
LOC: RADECHMAIN 10:39
PROVIDERS: ATTEND Internal Medicine Hematology & Oncology
DX: Z01.818 Encounter for other preprocedural examination (principal); I08.1 Rheumatic disorders of both mitral and tricuspid valves; I09.89 Other specified rheumatic heart diseases; I31.3 Pericardial effusion (noninflammatory); Z88.5 Allergy status to narcotic agent; Z88.6 Allergy status to analgesic agent
CPT/HCPCS: 93306

== ENCOUNTER → 2020-07-21 | Outpatient (CLI) | payer MEDICARE, OTHER ==
--- NOTE | 2020-07-21 18:58 | ECHOF ---
Referral Reason:Z01.818 chemo exposure MEASUREMENTS -------- HEIGHT: 157.5 cm WEIGHT: 63.5 kg BP: RVIDd: 2.9 cm (< 3.3) IVSd: 1.1 cm (0.6 - 1.1) LVIDd: 4.0 cm (3.9 - 5.3) LVPWd: 1.2 cm (0.6 - 1.1) IVSs: 1.3 cm LVIDs: 2.9 cm LVPWs: 1.9 cm LAESV Index (A-L): 21.77 ml/m Ao Diam: 3.8 cm (2.0 - 3.7) AV Cusp: 2.1 cm (1.5 - 2.6) MV E Quentin: 0.54 m/s MV DecT: 126 ms MV A Quentin: 0.73 m/s MV E/A Ratio: 0.73 RAP: 5.00 mmHg RVSP: 18.48 mmHg FINDINGS -------- Sinus rhythm. This was a technically difficult study with suboptimal apical views. The left ventricular size is normal. There is mild concentric left ventricular hypertrophy. Overa ll left ventricular systolic function is low-normal with, an EF between 50 - 55 %. The diastolic fi lling pattern indicates impaired relaxation 14.21. The right ventricle is normal in size. Normal LA size by volume 22+/-6 ml/m2. The right atrial size is normal. Lumason used Interatrial and interventricular septum intact. The aortic valve is trileaflet, and appears structurally normal. No aortic stenosis or regurgitation. The mitral valve is normal. No mitral regurgitation. Trace tricuspid regurgitation present. There is no evidence of pulmonary hypertension. The right ventricular systolic pressure, as measured by Doppler, is 18.48mmHg. There is no pulmonic regurgitation present. The aortic root size is normal. IVC Not well visulized. Echo free space may represent effusion or a pericardial fat pad. CONCLUSIONS -------- 1. There is mild concentric left ventricular hypertrophy. 2. Overall left ventricular systolic function is low-normal with, an EF between 50 - 55 %. 3. Normal LA size by volume 22+/-6 ml/m2. 4. The aortic valve is trileaflet, and appears structurally normal. No aortic stenosis or regurgitati on. 5. The mitral valve is normal. 6. Trace tricuspid regurgitation present. 7. Echo free space may represent effusion or a pericardial fat pad. LIEUTENANT GENERAL: Carol Mancini RDCS
== END | disposition home or self-care (01) ==
LOC: RADECHMAIN 13:53
PROVIDERS: ATTEND Internal Medicine Hematology & Oncology
DX: Z01.818 Encounter for other preprocedural examination (principal); I51.7 Cardiomegaly; Z88.5 Allergy status to narcotic agent
CPT/HCPCS: C8929; Q9950; 93306

== ENCOUNTER → 2020-08-02 | Outpatient (CLI) | payer MEDICARE, OTHER ==
--- NOTE | 2020-08-02 14:32 | MM ---
Reason for exam: additional evaluation requested from prior study. Last mammogram was performed 1 year ago. History: Patient is postmenopausal and has history of breast cancer at age 69. Family history of breast cancer in maternal aunt. MG discontinued stereo core LT of the left breast, January 25, 2020. Malignant MG pre op needle loc LT of the left breast, December 08, 2019. Benign MG stereo VAD BX LT of the left breast, September 11, 2019. Chemotherapy, 2019. Radiation therapy of the left breast, 2019. Benign cyst aspiration of the right breast. Benign excisional biopsy of the left breast. Physical Findings: Nurse did not find any significant physical abnormalities on exam. MG 3D Diag Mammo W/Cad BRIANA Bilateral CC and MLO view(s) were taken. Prior study comparison: July 22, 2019, left breast MG 3d work up w/cad LT. July 09, 2019, bilateral MG 3d screening mammo w/cad. The breast tissue is heterogeneously dense. This may lower the sensitivity of mammography. Finding: Architectural distortion in the inner quadrant, middle posterior position of the left breast consistent with known excision changes. Previous mammotome biopsy in the left breast. There is no discrete abnormality. Scar tissue left axilla. These results were verbally communicated with the patient and result sheet given to the patient on 08/02/20. ASSESSMENT: Benign, BI-RAD 2 RECOMMENDATION: Follow-up diagnostic mammogram of both breasts in 1 year.
== END | disposition home or self-care (01) ==
LOC: RADMAMWWP 12:53
PROVIDERS: ATTEND Radiology Radiation Oncology
DX: C50.912 Malignant neoplasm of unspecified site of left female breast (principal); F17.210 Nicotine dependence, cigarettes, uncomplicated
CPT/HCPCS: 77066; G0279; 77062

== ENCOUNTER → 2020-08-19 | Outpatient (CLI) | payer MEDICARE, OTHER ==
--- NOTE | 2020-08-19 13:34 | P.PN ---
Subjective Progress Note Date: 08/19/20 Principal diagnosis: Stage I a left breast cancer surveillance; [id number] stage IA left breast cancer surveillance left breast Stage IA breast cancer; [id number]+G2 Lorie is a 70-year-old white female seen in consultation for Dr. Parr who [place] a [place] [address]. This revealed some focal asymmetry with calcifications and additional views of the left breast was recommended. Nothing of concern was noted in the right breast. The [place] [address]. This revealed linear calcifications spanning 9 mm in the lower outer quadrant at middle depth. Biopsy was recommended. The patient did not feel any masses lumps or nodules in her breast. She underwent an attempted stereotactic core biopsy of the left breast on 09-11-19, the patient however moved during the procedure and it was felt that we did not adequately sample the area of concern. Pathology from this revealed reactive metaplastic changes and fat necrosis. Secondary to covid her needle localization and excisional biopsy was not performed until 12-08-19. 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 The margins were negative. The tumor size was 7 mm this was grade 2 there was noted to be extensive DCIS. The margins were however negative. This was ER/VT negative and HER-2/geo positive. Her case was presented at tumor board on 9803. Recommendation was for stereotactic core biopsy of a second area of calcifications in the left breast, if this were biopsy positive then mastectomy with sentinel node biopsy would be recommended, If biopsy was negative the lumpectomy with sentinel node biopsy. Initially there was some concern that there was a second area of calcification which were to be biopsied in the left breast, however on attempted stereo biopsy of this area repeat mammogram did not reveal any area of concern as per Dr. Bustillo. [place] [address]. This was benign but felt to be discordant. She therefore underwent a needle local excisional biopsy of the left breast and 70267. This revealed invasive moderately differentiated ductal carcinoma with high-grade DCIS, the margins were negative. Therefore she underwent a sentinel node biopsy and removal of 3 lymph nodes on 8420. She is now receiving chemotherapy with Taxol and Herceptin. She is still recei ving Herceptin every 3 weeks. This will be for one year. No hormonal therapy. She completed 30 days of radiation in February. She does not complain of any new lumps masses or nodules in either breast. Her last bilateral mammogram was on 2920. This was benign BIRADS 2. She has also been seen in consultation by Dr. Pratt and it from radiation oncology and her note from is reviewed. She has no complaints. She had a left breast biopsy 15 years ago in the operating room, no cancer. Caffeine: none smoke: 6/day smoking since 19, 50 years chocolate: daily Family History: maternal aunt: breast cancer brother: colon/liver/lung cancer Hormonal History: menarche: 19 , first born at 21, breast fed: none menopause: partial hysterectomy at 46, did not take ovaries done for endometriosis BCP: 1 year hormones: none Surgical History: 1. Hysterectomy 2. back surgery 3. left breast biopsy 15 years ago 4. needle biopsy on the right breast 5. tubaligation 6. left breast lumpectomy and SNB Medical History: 1. hypothyroid 2. COPD Social History: smoke: 50 years; 1/PPD now only 6 cigarettes/day alcohol: none drugs: none - Constitutional Constitutional: Reports sweats, Denies chills, Denies fever - EENT Comment: cataract surgery bilateral Eyes: denies blurred vision, denies pain Ears: deny: decreased hearing, tinnitus Ears, nose, mouth and throat: Denies headache, Denies sore throat - Breasts Breasts: bilateral: as per HPI - Cardiovascular Cardiovascular: Reports shortness of breath, Denies chest pain - Respiratory Comment: COPD - Gastrointestinal Gastrointestinal: Denies abdominal pain, Denies diarrhea, Denies nausea, Denies vomiting - Genitourinary (Female) Genitourinary: Denies dysuria, Denies hematuria - Menstruation Menstruation: Reports post hysterectomy - Musculoskeletal Comment: back surgery - Integumentary Integumentary: Denies pruritus, Denies rash - Neurological Neurological: Denies numbness, Denies weakness - Psychiatric Psychiatric: Denies anxiety, Denies depression - Endocrine Comment: hypothyroid - Hematologic/Lymphatic Comment: aspirin - Allergic/Immunologic Allergic/Immunologic: Reports as per HPI Objective - Vital Signs Vital signs: Vital Signs Temp 98.1 F 08/19/20 12:57 Pulse 72 08/19/20 12:57 Resp 18 08/19/20 12:57 BP 135/85 08/19/20 12:57 Pulse Ox 94 L 08/19/20 12:57 Intake & Output 08/18/20 08/19/20 08/19/20 18:59 06:59 18:59 Weight 62.142 kg - Exam BMI 26.8 - Constitutional General appearance: Present: average body habitus - EENT Eyes: Present: EOMI ENT: Present: hearing grossly normal - Neck Neck: Present: normal ROM - Respiratory Respiratory: bilateral: CTA - Cardiovascular Rhythm: regular Heart sounds: normal: S1, S2 - Gastrointestinal General gastrointestinal: Present: soft - Integumentary Integumentary: Present: normal turgor - Musculoskeletal Musculoskeletal: Present: gait normal - Psychiatric Psychiatric: Present: A&O x's 3, appropriate affect, intact judgment & insight - Additional findings Additional findings: Bresat Exam: BRA: 40C inspection: bilateral grade 2 ptosis palpation: right breast: Multi-positional exam no dominant masses or nodules of concern, fibrocystic changes Right axilla: No adenopathy of concern Left breast: Multi-positional exam no dominant masses or nodules of concern, fibrocystic changes Left axilla: No adenopathy of concern Assessment and Plan Assessment: Impression: 1. Patient status post left breast lumpectomy and sentinel node biopsy, no evidence of any recurrent cancer this was for invasive ductal carcinoma stage IA 2. Fibrocystic breast changes 3. Patient continuing Herceptin 4. 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 Continue to follow-up medical oncology 2. Continue to follow with radiation oncology 3. Bilateral mammogram in 1 year 4. Follow. 4 months Cc: Daniella Metzger encounter 20 minutes, time spent in reviewing medical records, physical examination, and counseling.
== END | disposition home or self-care (01) ==

== ENCOUNTER → 2020-10-14 | Outpatient (CLI) | payer MEDICARE, OTHER ==
--- NOTE | 2020-10-14 16:39 | ECHOF ---
Referral Reason:Z01.818 Chemo exposure MEASUREMENTS -------- HEIGHT: 152.4 cm WEIGHT: 59.0 kg BP: RVIDd: 3.0 cm (< 3.3) IVSd: 1.3 cm (0.6 - 1.1) LVIDd: 4.6 cm (3.9 - 5.3) LVPWd: 1.4 cm (0.6 - 1.1) IVSs: 1.4 cm LVIDs: 3.0 cm LVPWs: 1.6 cm LAESV Index (A-L): 33.90 ml/m Ao Diam: 3.7 cm (2.0 - 3.7) AV Cusp: 2.3 cm (1.5 - 2.6) MV EXCURSION: 17.009 mm (> 18.000) MV EF SLOPE: 66 mm/s (70 - 150) EPSS: 1.4 cm MV E Quentin: 0.49 m/s MV DecT: 264 ms MV A Quentin: 0.75 m/s MV E/A Ratio: 0.66 RAP: 5.00 mmHg RVSP: 21.72 mmHg FINDINGS -------- Sinus rhythm. This was a technically difficult study with suboptimal views. The left ventricular size is normal. There is mild concentric left ventricular hypertrophy. Overa ll left ventricular systolic function is mildly impaired with, an EF between 45 - 50 %. Atypical se ptal wall motion The right ventricle is normal in size. LA is midly dilated 29-33ml/m2. The right atrium was not well visualized. 5.0mg of Lumason was utilized for enhancement of images Interatrial and interventricular septum intact. There is no evidence of aortic regurgitation. There is no evidence of aortic stenosis. The mitral valve was not well visualized. Mild tricuspid regurgitation present. There is no evidence of pulmonary hypertension. The right v entricular systolic pressure, as measured by Doppler, is 21.72mmHg. The pulmonic valve was not well visualized. The aortic root size is normal. IVC Not well visulized. There is no pericardial effusion. CONCLUSIONS -------- 1. The left ventricular size is normal. 2. There is mild concentric left ventricular hypertrophy. 3. Overall left ventricular systolic function is mildly impaired with, an EF between 45 - 50 %. 4. LA is midly dilated 29-33ml/m2. 5. Mild tricuspid regurgitation present. ACTIVITIES VOLUNTEER: Simona Bunch RDCS
== END | disposition home or self-care (01) ==
LOC: RADECHMAIN 12:04
PROVIDERS: ATTEND Internal Medicine Hematology & Oncology
DX: I07.1 Rheumatic tricuspid insufficiency (principal)
CPT/HCPCS: C8929; Q9950; 93306

== ENCOUNTER → 2020-11-14 | Outpatient (CLI) | payer MEDICARE, OTHER ==
--- NOTE | 2020-11-14 16:40 | NM ---
EXAMINATION TYPE: NM rest muga chemo DATE OF EXAM: 11/14/2020 COMPARISON: NONE HISTORY: Z 79.88 Following administration of 3ml PYP, the patient received intravenous 24.6 mCi Tc 99m Sodium Pertechn ete. FINDINGS: No focal wall motion abnormality. Ejection fraction 49% IMPRESSION: Normal left ventricular ejection fraction
== END | disposition home or self-care (01) ==
LOC: RADNMMAIN 12:36
PROVIDERS: ATTEND Internal Medicine Hematology & Oncology
DX: Z79.899 Other long term (current) drug therapy (principal)
CPT/HCPCS: 78472; A9560

== ENCOUNTER 2021-01-04 21:22 | Inpatient (IN) | payer MEDICARE, OTHER ==
[2021-01-04] MEDS ORDERED: PIPERACILLIN-TAZOBACTAM 3.375 GM in SODIUM CHLORIDE 0.9% 100 ML IVPB STA (22:21)
[2021-01-04] MEDS ORDERED: ACETAMINOPHEN TAB 325 MG TAB PO STA (22:21)
[2021-01-04] MEDS: SODIUM CHLORIDE 0.9% 500 ML 500 ML IV SCH (23:13)
[2021-01-04 23:21] LABS: ALT 12 U/L (4-34); AST 22 U/L (14-36); African American GFR (CKD) >90 (>60 ml/min/1.73 sqM); Albumin 3.8 g/dL (3.5-5.0); Alkaline Phosphatase 127 U/L (38-126); Anion Gap 10 mmol/L; Blood Urea Nitrogen 13 mg/dL (7-17); Calcium 8.6 mg/dL (8.4-10.2); Carbon Dioxide 24 mmol/L (22-30); Chloride 100 mmol/L (98-107); Glucose 111 mg/dL (74-99); Non-African American GFR(CKD) 89 (>60 ml/min/1.73 sqM); Potassium 3.7 mmol/L (3.5-5.1); Sodium 134 mmol/L (137-145); Total Bilirubin 0.7 mg/dL (0.2-1.3); Total Protein 6.9 g/dL (6.3-8.2)
[2021-01-04 23:25] LABS: Amorphous Sediment,Urine Rare /hpf; Appearance,Urine Cloudy (Clear); Bilirubin,Urine Negative (Negative); Blood,Urine Small (Negative); Color,Urine Yellow; Glucose,Urine (UA) Negative (Negative); Hyaline Casts,Urine 12 /lpf (0-2); Ketones,Urine 2+ (Negative); Leukocyte Esterase,Urine Moderate (Negative); Mucus,Urine Rare /hpf; Nitrite,Urine Negative (Negative); Protein,Urine 1+ (Negative); RBC,Urine 3 /hpf (0-5); Specific Gravity,Urine 1.021 (1.001-1.035); Squamous Epithelial Cell,Urine 7 /hpf (0-4); WBC,Urine 45 /hpf (0-5)
[2021-01-04 23:26] LABS: Partial Thromboplastin Time 24.5 sec (22.0-30.0); Prothrombin Time 10.9 sec (9.0-12.0)
--- NOTE | 2021-01-04 23:39 | ED ---
General Adult HPI - General Chief complaint: Allergic Reaction Stated complaint: tongue swelling, fever Time Seen by Provider: 01/04/21 22:02 Source: patient, family Mode of arrival: ambulatory Limitations: no limitations - History of Present Illness Initial comments: 70-year-old female patient presents to the emergency department today for evaluation of tongue swelling, fever, chills, sore throat. States symptoms started last night and worsening throughout the day. States she started a new medication last evening, Flexeril, states she is concerned she may be ALLERGIC to this. Patient states she has also been getting some dental work done and se ems like that has been causing a sore throat. She denies any difficulty breathing. States the area is painful. Denies any rash or itching. Does take lisinopril 2.5 mg daily. Patient denies any recent rash cough, chest pain, abdominal pain, nausea, vomiting, diarrhea, constipation, back pain, numbness, tingling, dizziness, weakness, hematuria, dysuria, urinary urgency, urinary frequency, headache, visual changes, or any other complaints. Does do immunotherapy for history of breast cancer, last dose 1.5 months ago. - Related Data Home Medications Medication Instructions Recorded Confirmed Famotidine [Pepcid] 40 mg PO HS 08/24/19 08/19/20 Fluticasone/Umeclidin/Vilanter 1 inhalation INHALATION HS 08/24/19 08/19/20 [Trelegy Ellipta 100-62.5-25] Montelukast [Singulair] 10 mg PO HS 08/24/19 08/19/20 PARoxetine HCL [Paxil] 40 mg PO QAM 08/24/19 08/19/20 Levothyroxine Sodium [Synthroid] 75 mcg PO QAM 12/07/19 08/19/20 Acetaminophen [Tylenol Extra 1,000 mg PO HS 01/07/20 08/19/20 Strength] Docusate [Colace] 100 mg PO DAILY 01/07/20 08/19/20 Ondansetron [Zofran] 4 mg PO Q12HR PRN 05/13/20 08/19/20 rOPINIRole HCL [Requip] 0.25 mg PO HS 05/13/20 08/19/20 Allergies Allergy/AdvReac Type Severity Reaction Status Date / Time codeine Allergy Swelling Verified 01/04/21 21:36 meperidine [From Demerol] Allergy Swelling Verified 01/04/21 21:36 morphine Allergy Swelling Verified 01/04/21 21:36 Review of Systems ROS Statement: Those systems with pertinent positive or pertinent negative responses have been documented in the HPI. ROS Other: All systems not noted in ROS Statement are negative. Past Medical History Past Medical History: COPD, Hyperlipidemia, Thyroid Disorder Additional Past Medical History / Comment(s): left breast cancer recent, thyroid cancer History of Any Multi-Drug Resistant Organisms: None Reported Past Surgical History: Back Surgery, Breast Surgery, Hysterectomy, Tubal Ligation Additional Past Surgical History / Comment(s): benign right breast biopsy, bilateral cataract surgery, malignant left needle localization in 12/08/19 Past Anesthesia/Blood Transfusion Reactions: Previous Problems w/ Anesthesia Additional Past Anesthesia/Blood Transfusion Reaction / Comment(s): pt states she woke up during 2 surgeries Past Psychological History: No Psychological Hx Reported Smoking Status: Current every day smoker Past Alcohol Use History: None Reported Past Drug Use History: None Reported - Past Family History Brother(s) Family Medical History: Cancer Additional Family Medical History / Comment(s): lung, liver and colon cancer General Exam Limitations: no limitations General appearance: alert, in no apparent distress, other (This is a well- developed, well-nourished adult female patient in no acute distress. Vital signs upon presentation are temperature 101.3F oral, pulse 110, respirations 18, blood pressure 97/67, pulse ox 97% on room air.) ENT exam: Present: normal oropharynx, mucous membranes moist, other (tongue swelling worse on the left, sublingual swelling, tenderness) Neck exam: Present: other (submental swelling and tenderness). Absent: tenderness, meningismus, lymphadenopathy Respiratory exam: Present: normal lung sounds bilaterally. Absent: respiratory distress, wheezes, rales, rhonchi, stridor Cardiovascular Exam: Present: normal rhythm, tachycardia, normal heart sounds. Absent: systolic murmur, diastolic murmur, rubs, gallop, clicks GI/Abdominal exam: Present: soft, normal bowel sounds. Absent: distended, tenderness, guarding, rebound, rigid Neurological exam: Present: alert, oriented X3, CN II-XII intact Psychiatric exam: Present: normal affect, normal mood Skin exam: Present: warm, dry, intact, normal color. Absent: rash Course Vital Signs 01/04/21 01/05/21 01/05/21 21:29 00:52 01:44 Temperature 97.5 F L 101.2 F H Pulse Rate 110 H 79 72 Respiratory 18 18 20 Rate Blood Pressure 97/67 88/60 79/59 O2 Sat by Pulse 97 92 L 95 Oximetry 01/05/21 01/05/21 02:31 03:21 Temperature 98.1 F Pulse Rate 76 71 Respiratory 20 18 Rate Blood Pressure 87/69 92/55 O2 Sat by Pulse 95 92 L Oximetry Medical Decision Making - Medical Decision Making 70-year-old female patient presents for evaluation of tongue swelling, fever, sore throat. Physical examination did reveal edema of the tongue, swelling of the sublingual region with tenderness. She is febrile 101.6F oral. She does report having some dental work done recently. Labs reviewed and did reveal white blood cell count of 14.0. Urinalysis did show elevated white blood cells as well 45, moderate leukocyte esterase, no bacteria. This was sent for culture. CT of the soft tissue neck was obtained and did show enlargement of the tongue with some enhancement of uncertain significance. I did discuss findings results with the patient and her son. She'll be started on antibiotics for possible infection. She is given steroids, benadryl, and pepcid for possible angioedema vs allergic reaction. She will be admitted for further evaluation and monitoring. Will consult ENT. Patient is agreeable with this plan. Case discussed with my attending Dr. Hurt. - Lab Data Result diagrams: 01/04/21 22:45 01/04/21 22:45 Lab Results 01/04/21 01/04/21 01/04/21 Range/Units 22:45 22:45 22:45 WBC 14.0 H (3.8-10.6) k/uL RBC 4.17 (3.80-5.40) m/uL Hgb 13.0 (11.4-16.0) gm/dL Hct 37.4 (34.0-46.0) % MCV 89.8 (80.0-100.0) fL MCH 31.3 (25.0-35.0) pg MCHC 34.9 (31.0-37.0) g/dL RDW 15.8 H (11.5-15.5) % Plt Count 189 (150-450) k/uL MPV 7.3 Neutrophils % (Manual) 76 % Lymphocytes % (Manual) 18 % Monocytes % (Manual) 5 % Eosinophils % (Manual) 1 % Neutrophils # HOUSING ASSISTANT PROPERTY MANAGER Neutrophils # (Manual) 10.64 H (1.3-7.7) k/uL Lymphocytes # (Manual) 2.52 (1.0-4.8) k/uL Monocytes # (Manual) 0.70 (0-1.0) k/uL Eosinophils # (Manual) 0.14 (0-0.7) k/uL Nucleated RBCs 0 (0-0) /100 WBC Manual Slide Review Performed RBC Morphology Normal PT 10.9 (9.0-12.0) sec INR 1.0 (<1.2) APTT 24.5 (22.0-30.0) sec Sodium (137-145) mmol/L Potassium (3.5-5.1) mmol/L Chloride (98-107) mmol/L Carbon Dioxide (22-30) mmol/L Anion Gap mmol/L BUN (7-17) mg/dL Creatinine (0.52-1.04) mg/dL Est GFR (CKD-EPI)AfAm (>60 ml/min/1.73 sqM) Est GFR (CKD-EPI)NonAf (>60 ml/min/1.73 sqM) Glucose (74-99) mg/dL Plasma Lactic Acid David (0.7-2.0) mmol/L Calcium (8.4-10.2) mg/dL Total Bilirubin (0.2-1.3) mg/dL AST (14-36) U/L ALT (4-34) U/L Alkaline Phosphatase (38-126) U/L Total Protein (6.3-8.2) g/dL Albumin (3.5-5.0) g/dL Urine Color Yellow Urine Appearance Cloudy H (Clear) Urine pH 6.0 (5.0-8.0) Ur Specific [place] 1.021 (1.001-1.035) Urine Protein 1+ H (Negative) Urine Glucose (UA) Negative (Negative) Urine Ketones 2+ H (Negative) Urine Blood Small H (Negative) Urine Nitrite Negative (Negative) Urine Bilirubin Negative (Negative) Urine Urobilinogen 3.0 (<2.0) mg/dL Ur Leukocyte Esterase Moderate H (Negative) Urine RBC 3 (0-5) /hpf Urine WBC 45 H (0-5) /hpf Ur Squamous Epith Cells 7 H (0-4) /hpf Amorphous Sediment Rare H (None) /hpf Hyaline Casts 12 H (0-2) /lpf Urine Mucus Rare H (None) /hpf 01/04/21 01/04/21 Range/Units 22:45 22:45 WBC (3.8-10.6) k/uL RBC (3.80-5.40) m/uL Hgb (11.4-16.0) gm/dL Hct (34.0-46.0) % MCV (80.0-100.0) fL MCH (25.0-35.0) pg MCHC (31.0-37.0) g/dL RDW (11.5-15.5) % Plt Count (150-450) k/uL MPV Neutrophils % (Manual) % Lymphocytes % (Manual) % Monocytes % (Manual) % Eosinophils % (Manual) % Neutrophils # Neutrophils # (Manual) (1.3-7.7) k/uL Lymphocytes # (Manual) (1.0-4.8) k/uL Monocytes # (Manual) (0-1.0) k/uL Eosinophils # (Manual) (0-0.7) k/uL Nucleated RBCs (0-0) /100 WBC Manual Slide Review RBC Morphology PT (9.0-12.0) sec INR (<1.2) APTT (22.0-30.0) sec Sodium 134 L (137-145) mmol/L Potassium 3.7 (3.5-5.1) mmol/L Chloride 100 (98-107) mmol/L Carbon Dioxide 24 (22-30) mmol/L Anion Gap 10 mmol/L BUN 13 (7-17) mg/dL Creatinine 0.69 (0.52-1.04) mg/dL Est GFR (CKD-EPI)AfAm >90 (>60 ml/min/1.73 sqM) Est GFR (CKD-EPI)NonAf 89 (>60 ml/min/1.73 sqM) Glucose 111 H (74-99) mg/dL Plasma Lactic Acid David 1.0 (0.7-2.0) mmol/L Calcium 8.6 (8.4-10.2) mg/dL Total Bilirubin 0.7 (0.2-1.3) mg/dL AST 22 (14-36) U/L ALT 12 (4-34) U/L Alkaline Phosphatase 127 H (38-126) U/L Total Protein 6.9 (6.3-8.2) g/dL Albumin 3.8 (3.5-5.0) g/dL Urine Color Urine Appearance (Clear) Urine pH (5.0-8.0) Ur Specific [place] (1.001-1.035) Urine Protein (Negative) Urine Glucose (UA) (Negative) Urine Ketones (Negative) Urine Blood (Negative) Urine Nitrite (Negative) Urine Bilirubin (Negative) Urine Urobilinogen (<2.0) mg/dL Ur Leukocyte Esterase (Negative) Urine RBC (0-5) /hpf Urine WBC (0-5) /hpf Ur Squamous Epith Cells (0-4) /hpf Amorphous Sediment (None) /hpf Hyaline Casts (0-2) /lpf Urine Mucus (None) /hpf - EKG Data -: EKG Interpreted by Ok EKG Comments: EKG obtained at 2350 shows normal sinus rhythm with incomplete right bundle branch block, prolonged QT interval. Ventricular rate is 86, VT interval 148, QRS duration 104, QTC 396, QTc 473. No evidence of ST elevation or depression. - Radiology Data Radiology results: report reviewed, image reviewed CT soft tissue neck with contrast was obtained. Report is reviewed in its entirety. Impression by Dr. Knapp shows epiglottis is normal. Subglottic trachea is normal. Tongue appears large. There is some heterogenous enhancement of the tongue of uncertain significance. Mass of the tongue is not excluded. Disposition Clinical Impression: Tongue swelling, Sepsis Disposition: ADMITTED IP TO THIS [facility] Condition: Serious Decision to Admit Reason: Admit from EC Decision Date: 01/05/21 Decision Time: 01:51
[2021-01-04 23:47] LABS: HCT 37.4 % (34.0-46.0); MCH 31.3 pg (25.0-35.0); MCHC 34.9 g/dL (31.0-37.0); MCV 89.8 fL (80.0-100.0); Mean Platelet Volume 7.3; Platelet Count 189 k/uL (150-450); RBC 4.17 m/uL (3.80-5.40); RDW 15.8 % (11.5-15.5)
[2021-01-05 00:05] LABS: Eosinophils # (M) 0.14 k/uL (0-0.7); Lymphocytes # (M) 2.52 k/uL (1.0-4.8); Neutrophils # (M) 10.64 k/uL (1.3-7.7); Neutrophils % (M) 76 %; Nucleated Red Blood Cells 0 /100 WBC (0-0); Total Cells Counted 100
--- NOTE | 2021-01-05 00:33 | CT ---
EXAMINATION TYPE: CT soft tissue neck w con DATE OF EXAM: 01/04/2021 COMPARISON: None HISTORY: Neck swelling; tongue swelling CT DLP: 153.9 mGycm Automated exposure control for dose reduction was used. CONTRAST: Performed with IV Contrast, patient injected with 100 mL of Isovue 300. Images obtained from the thoracic inlet to the top of the orbits with IV contrast. The great vessels appear intact there is normal arterial flow seen in the subclavian arteries. There is arterial flow in the common internal and external carotid arteries bilaterally. There is arterial flow in both vertebral arteries. Thyroid gland appears small or there has been thyroidectomy. There i s no evidence of thyroid mass. The trachea appears intact. Subglottic trachea appears normal. Epiglot tis is normal. The tongue appears large and extends up to the soft palate. Prevertebral soft tissues are intact. The tonsils and adenoids appear intact. The globes are symmetric. There is no evidence of retro-orbital mass. There is early normal aeration of the paranasal sinuses. I see no bony destructive process. The submandibular salivary glands are sy mmetric. Parotid glands are symmetric. IMPRESSION: Epiglottis is normal. Subglottic trachea is normal. The tongue appears large. There is some heterogen eous enhancement of the tongue of uncertain significance. Mass of the tongue not excluded.
[2021-01-05] MEDS: SODIUM CHLORIDE 0.9% 500 ML 500 ML IV SCH (00:50)
[2021-01-05] MEDS ORDERED: FAMOTIDINE 20 MG/2 ML VIAL IV STA (01:02)
[2021-01-05] MEDS ORDERED: diphenhydrAMINE 50 MG/ML 1 ML VIAL IVP STA (01:02)
[2021-01-05] MEDS ORDERED: methylPREDNISolone SOD SUCCI 125 MG/2 ML VIAL IV STA (01:02)
[2021-01-05] MEDS ORDERED: SODIUM CHLORIDE 0.9% 1,000 ML IV ONE (01:41)
[2021-01-05] MEDS ORDERED: ONDANSETRON 4 MG/2 ML VIAL IVP PRN (01:51)
[2021-01-05] MEDS ORDERED: NALOXONE 0.4 MG/ML 1 ML VIAL IV PRN (01:51)
[2021-01-05] MEDS: ACETAMINOPHEN TAB 325 MG TAB PO PRN (02:30)
[2021-01-05] MEDS: SODIUM CHLORIDE 0.9% 1,000 ML IV SCH ×3 (04:02→17:19)
[2021-01-05] MEDS: PIPERACILLIN-TAZOBACTAM 3.375 GM in SODIUM CHLORIDE 0.9% 100 ML IVPB SCH ×3 (07:20→22:12)
[2021-01-05] MEDS ORDERED: diphenhydrAMINE 25 MG CAP PO PRN (09:12)
[2021-01-05] MEDS: FAMOTIDINE 20 MG/2 ML VIAL IV SCH (09:42)
[2021-01-05] MEDS: methylPREDNISolone SOD SUCCI 125 MG/2 ML VIAL IV SCH ×2 (09:43→17:18)
[2021-01-05] MEDS: LEVOTHYROXINE 75 MCG TAB PO SCH (11:17)
[2021-01-05] MEDS: METOPROLOL SUCCINATE (ER) 25 MG TAB.ER.24H PO SCH (12:12)
[2021-01-05] MEDS: PARoxetine 20 MG TAB PO SCH (12:12)
[2021-01-05] MEDS: PANTOPRAZOLE 40 MG TABLET PO SCH (12:46)
[2021-01-05] MEDS ORDERED: LORazepam 2 MG/ML INJ IV PRN (17:12)
[2021-01-05] MEDS: MONTELUKAST 10 MG TAB PO SCH (20:46)
--- NOTE | 2021-01-05 23:08 | P.HPIM ---
History of Present Illness H&P Date: 01/05/21 Chief Complaint: tongue swelling, chills Lorie Szymanski is a 70 yo F with PMH of multiple medication allergies, HTN, hypothyroidism, anxiety who presented to the ED with tongue swelling and lip tingling after starting a new medication. She states her PCP prescribed her a msucle relaxer she had never taken before and shortly after she developed these symptoms. She denies any respiratory symptoms but was worried so came to the hosptial. She denies wheezing or shortness of breath. On presentation she was hypotensive and tachycardic, WBC 14k, CMP unremarkable. CT neck showing isolated enlarged tongue. Review of Systems All systems: negative Constitutional: Reports malaise, Denies chills, Denies fever Eyes: denies blurred vision, denies pain Ears, nose, mouth and throat: Reports as per HPI, Reports neck fullness/pressure, Reports odynophagia, Denies headache, Denies sore throat Cardiovascular: Denies chest pain, Denies shortness of breath Respiratory: Denies cough Gastrointestinal: Denies abdominal pain, Denies diarrhea, Denies nausea, Denies vomiting Genitourinary: Denies dysuria, Denies hematuria Musculoskeletal: Denies myalgias Integumentary: Denies pruritus, Denies rash Neurological: Denies numbness, Denies weakness Psychiatric: Denies anxiety, Denies depression Endocrine: Denies fatigue, Denies weight change Past Medical History Past Medical History: COPD, Hyperlipidemia, Thyroid Disorder Additional Past Medical History / Comment(s): left breast cancer recent, thyroid cancer History of Any Multi-Drug Resistant Organisms: None Reported Past Surgical History: Back Surgery, Breast Surgery, Hysterectomy, Tubal Ligation Additional Past Surgical History / Comment(s): benign right breast biopsy, bilateral cataract surgery, malignant left needle localization in 12/08/19 Past Anesthesia/Blood Transfusion Reactions: Previous Problems w/ Anesthesia Additional Past Anesthesia/Blood Transfusion Reaction / Comment(s): pt states she woke up during 2 surgeries Past Psychological History: No Psychological Hx Reported Smoking Status: Current every day smoker Past Alcohol Use History: None Reported Additional Past Alcohol Use History / Comment(s): started smoking in 1968, smokes 4-6 cigarettes daily Past Drug Use History: None Reported - Past Family History Brother(s) Family Medical History: Cancer Additional Family Medical History / Comment(s): lung, liver and colon cancer Medications and Allergies Home Medications Medication Instructions Recorded Confirmed Type Fluticasone/Umeclidin/Vilanter 1 puff INHALATION RT-HS 08/24/19 01/05/21 History [Treleatryn Ellipta 100-62.5-25] Montelukast [Singulair] 10 mg PO HS 08/24/19 01/05/21 History PARoxetine HCL [Paxil] 40 mg PO DAILY 08/24/19 01/05/21 History Acetaminophen [Tylenol Extra 1,000 mg PO HS 01/07/20 01/05/21 History Strength] Alendronate Sodium [Fosamax] 70 mg PO BUTTS 01/05/21 01/05/21 History Cyanocobalamin (Vitamin B-12) 1,000 mcg PO HS 01/05/21 01/05/21 History [Vitamin B-12] Ergocalciferol (Vitamin D2) 1,250 mcg PO SA@2100 01/05/21 01/05/21 History [Drisdol (50,000 Iu)] Levothyroxine Sodium [Synthroid] 75 mcg PO DAILY 01/05/21 01/05/21 History Metoprolol Succinate [Toprol XL] 25 mg PO DAILY 01/05/21 01/05/21 History Omeprazole [PriLOSEC] 40 mg PO DAILY 01/05/21 01/05/21 History diphenhydrAMINE [Benadryl] 25 mg PO HS 01/05/21 01/05/21 History lisinopriL [Zestril] 2.5 mg PO DAILY 01/05/21 01/05/21 History Allergies Allergy/AdvReac Type Severity Reaction Status Date / Time codeine Allergy Swelling Verified 01/05/21 08:17 meperidine [From Demerol] Allergy Swelling Verified 01/05/21 08:17 morphine Allergy Swelling Verified 01/05/21 08:17 Physical Exam Vitals: Vital Signs Temp Pulse Pulse Resp BP BP Pulse Ox 01/05/21 19:20 98.1 F 69 20 131/67 93 L 01/05/21 19:06 62 16 01/05/21 14:53 98.4 F 62 16 123/72 93 L 01/05/21 07:00 97.8 F 66 16 105/65 93 L 01/05/21 04:07 97.8 F 78 16 125/85 93 L 01/05/21 03:21 98.1 F 71 18 92/55 92 L 01/05/21 02:31 76 20 87/69 95 01/05/21 01:44 72 20 79/59 95 01/05/21 00:52 101.2 F H 79 18 88/60 92 L Intake and Output 01/05/21 01/05/21 01/05/21 06:59 14:59 22:59 Intake Total 111 180 Balance 111 180 Intake: Oral 111 180 Other: Voiding Method Toilet # Voids 1 5 1 # Bowel Movements 1 1 Weight 55.338 kg General: well nourished, well developed, NAD. Vitals reviewed Eyes: PERRL, EOMI, conjunctiva normal HENT: normocephalic, mucus membranes moist. Enlarged tongue Neck: supple, no JVD Lungs: normal respiratory effort, no wheezes or rales CV: Regular rate and rhythm, no murmur. Peripheral pulses 2+ Abdomen: soft, nondistended, no organomegaly Lymph: no cervical or axillary LAD Skin: warm and dry. Neuro: A&Ox3, normal mood and affect Results CBC & Chem 7: 01/04/21 22:45 01/04/21 22:45 Labs: Abnormal Lab Results - Last 24 Hours (Table) 01/04/21 01/04/21 01/04/21 Range/Units 22:45 22:45 22:45 WBC 14.0 H (3.8-10.6) k/uL RDW 15.8 H (11.5-15.5) % Neutrophils # (Manual) 10.64 H (1.3-7.7) k/uL Sodium 134 L (137-145) mmol/L Glucose 111 H (74-99) mg/dL Alkaline Phosphatase 127 H (38-126) U/L Urine Appearance Cloudy H (Clear) Urine Protein 1+ H (Negative) Urine Ketones 2+ H (Negative) Urine Blood Small H (Negative) Ur Leukocyte Esterase Moderate H (Negative) Urine WBC 45 H (0-5) /hpf Ur Squamous Epith Cells 7 H (0-4) /hpf Amorphous Sediment Rare H (None) /hpf Hyaline Casts 12 H (0-2) /lpf Urine Mucus Rare H (None) /hpf Microbiology - Last 24 Hours (Table) 01/04/21 22:45 Urine Culture - Preliminary Urine,Voided Thrombosis Risk Factor Assmnt - Choose All That Apply Any of the Below Risk Factors Present?: Yes Each Factor Represents 1 point: Abnormal pulmonary function (COPD) Other Risk Factors: Yes Each Risk Factor Represents 2 Points: Age 61-74 years Other congenital or acquired thrombophilia - If yes, enter type in comment: No Thrombosis Risk Factor Assessment Total Risk Factor Score: 3 Thrombosis Risk Factor Assessment Level: Moderate Risk Assessment and Plan Plan: 1. Anaphylaxis. Secondary to new medication, IV solumedrol. PO benadrl ordered for symptomatic relief 2. Glossitis. Empiric zosyn to cover 3. HTN. Continue home lisinopril 4. Hypothyroidism. Continue synthoid
[2021-01-06] MEDS: methylPREDNISolone SOD SUCCI 125 MG/2 ML VIAL IV SCH ×3 (00:14→20:33)
[2021-01-06] MEDS: SODIUM CHLORIDE 0.9% 1,000 ML IV SCH ×3 (00:15→17:26)
[2021-01-06] MEDS: LEVOTHYROXINE 75 MCG TAB PO SCH (05:36)
[2021-01-06] MEDS: PIPERACILLIN-TAZOBACTAM 3.375 GM in SODIUM CHLORIDE 0.9% 100 ML IVPB SCH ×3 (09:17→22:04)
[2021-01-06] MEDS: PANTOPRAZOLE 40 MG TABLET PO SCH (09:20)
[2021-01-06] MEDS: FAMOTIDINE 20 MG/2 ML VIAL IV SCH (09:21)
[2021-01-06] MEDS: PARoxetine 20 MG TAB PO SCH (09:21)
[2021-01-06] MEDS: METOPROLOL SUCCINATE (ER) 25 MG TAB.ER.24H PO SCH (09:21)
--- NOTE | 2021-01-06 11:14 | P.PN ---
Subjective Progress Note Date: 01/06/21 Lorie Szymanski is a 70 yo F with PMH of multiple medication allergies, HTN, hypothyroidism, anxiety who presented to the ED with tongue swelling and lip tingling after starting a new medication. She states her PCP prescribed her a msucle relaxer she had never taken before and shortly after she developed these symptoms. She denies any respiratory symptoms but was worried so came to the hosptial. She denies wheezing or shortness of breath. On presentation she was hypotensive and tachycardic, WBC 14k, CMP unremarkable. CT neck showing isolated enlarged tongue. 01/06/2021 maintained on IV steroids, Zosyn. Yesterday IV steroid dose increased as per ENT-Dr. Velasco.Tongue edema improving, speech slurred Confusion persists, denies hallucinations -reports hallucinations resolved this morning. Minimal intake this am. Staff reports patient was agitated all night, with Ativan worsening symptoms. Urine culture pending. Maintaining O2 sats in the high 90s on room air. Objective - Vital Signs Vital signs: Vital Signs Temp 97.5 F L 01/06/21 07:00 Pulse 74 01/06/21 07:00 Resp 16 01/06/21 07:00 BP 126/73 01/06/21 07:00 Pulse Ox 96 01/06/21 07:00 Intake & Output 01/05/21 01/06/21 01/06/21 18:59 06:59 18:59 Intake Total 291 Balance 291 Intake: Oral 291 Other: Voiding Method Toilet # Voids 5 4 # Bowel Movements 1 1 - Exam General: Sitting up, pleasantly confused, NAD. Vitals reviewed Eyes: PERRL, EOMI, conjunctiva normal HENT: normocephalic, mucus membranes moist. tongue edema improving, trachea midline Neck: supple, no JVD Lungs: normal respiratory effort, no wheezes or rales CV: Regular rate and rhythm, no murmur. Peripheral pulses 2+ Abdomen: soft, nondistended, no organomegaly Lymph: no cervical or axillary LAD Skin: warm and dry. Neuro: A&Ox to person only , currently calm, cooperative - Labs CBC & Chem 7: 01/04/21 22:45 01/04/21 22:45 Labs: Microbiology - Last 24 Hours (Table) 01/04/21 22:45 Urine Culture - Preliminary Urine,Voided Gram Neg Bacilli 01/04/21 22:50 Blood Culture - Preliminary Blood No Growth after 24 hours 01/04/21 22:50 Blood Culture - Preliminary Blood No Growth after 24 hours Assessment and Plan Assessment: 1. Anaphylaxis. Secondary to new medication, IV solumedrol. 2. Glossitis 3. HTN 4. Hypothyroidism 5. Possible acute UTI, culture pending 6. Acute metabolic and toxic encephalopathy, multifactorial, secondary to glossitis, anaphylaxis, possible acute UTI and medication induced. Plan: Continue on current medication regime ,monitoring and symptomatic treatment. Maintain empiric Zosyn to cover glossitis. IV steroid dose decreased, Ativan discontinued, Seroquel ordered. Urine culture pending We'll hold discharge related to confusion. Anticipate discharge tomorrow. The impression and plan of care has been dictated as directed. : I performed a history and examination of this patient, discussed the same with the dictator. I agree with the dictator's note ,documented as a scribe. Any additional findings or plans will be noted.
[2021-01-06] MEDS: MONTELUKAST 10 MG TAB PO SCH (20:33)
[2021-01-06] MEDS: QUEtiapine 50 MG TAB PO SCH (20:33)
[2021-01-06] MEDS: NICOTINE 14MG/24HR PATCH TRANSDERM SCH (22:19)
[2021-01-07] MEDS: SODIUM CHLORIDE 0.9% 1,000 ML IV SCH ×3 (01:12→16:26)
[2021-01-07] MEDS: LEVOTHYROXINE 75 MCG TAB PO SCH (06:09)
[2021-01-07] MEDS: NICOTINE 14MG/24HR PATCH TRANSDERM SCH (08:26)
[2021-01-07] MEDS: methylPREDNISolone SOD SUCCI 125 MG/2 ML VIAL IV SCH (08:26)
[2021-01-07] MEDS: PIPERACILLIN-TAZOBACTAM 3.375 GM in SODIUM CHLORIDE 0.9% 100 ML IVPB SCH ×2 (08:26→16:27)
[2021-01-07] MEDS: PARoxetine 20 MG TAB PO SCH (08:27)
[2021-01-07] MEDS: METOPROLOL SUCCINATE (ER) 25 MG TAB.ER.24H PO SCH (08:27)
[2021-01-07] MEDS: FAMOTIDINE 20 MG/2 ML VIAL IV SCH (08:27)
--- NOTE | 2021-01-07 16:27 | XR ---
EXAMINATION TYPE: XR chest 1V portable DATE OF EXAM: 01/07/2021 COMPARISON: NONE HISTORY: Short of breath TECHNIQUE: Single view FINDINGS: Heart and mediastinum are normal. Lungs are clear of infiltrate. There is no heart failure. There are small linear density at the right lung base. Bony thorax is intact. IMPRESSION: Minimal subsegmental atelectasis right lung base. Normal heart.
[2021-01-07] MEDS ORDERED: ERTAPENEM 1 GM in SODIUM CHLORIDE 0.9% 50 ML IVPB SCH (17:00)
--- NOTE | 2021-01-07 17:07 | PN ---
PROGRESS NOTE DATE OF SERVICE: 01/07/2021. I am covering for Dr. Bragg. HISTORY: This 70-year-old woman is admitted with possible angioedema and tongue swelling, possible reaction to muscle relaxants according to her. The patient is on IV steroids and empiric antibiotics. The patient has less swelling of the left tongue also. The urine culture showed E coli. The labs showed WBC 14. Sodium was 134. UA was noted. PAST MEDICAL HISTORY: Reviewed. REVIEW OF SYSTEMS: CARDIOVASCULAR: No angina. ENT: As mentioned earlier. RESPIRATORY SYSTEM: As mentioned earlier. GI: As mentioned earlier. : No dysuria. CURRENT MEDICATIONS: Reviewed include Tylenol, Pepcid, Synthroid Zestril, Solu-Medrol, Toprol-XL, Singulair, Narcan, Zosyn. Doses reviewed. PHYSICAL EXAMINATION: Alert oriented x3. Pulse 55, blood pressure 112/58, respirations 18, temperature 98 98.1, pulse ox 94% on room air. HEENT: Conjunctivae normal. Oral mucosa moist. NECK: Still some swelling and thickness of the lingula, mostly left side present. No jugular venous distention. No lymph node enlargement. CARDIOVASCULAR: S1 and S2. LUNGS: Diminished at the bases. A few scattered rhonchi. No crackles. ABDOMEN: Soft, nontender. No mass. LEGS: No edema, no swelling. LAB: WBC 14, sodium 132, potassium 3.8. ASSESSMENT: 1. Swelling of the tongue and difficulty in breathing, possibly angioneurotic edema secondary to drug reaction possibly. 2. Increased WBC. 3. Hyponatremia. 4. Possible urinary tract infection with the E coli present on admission, not related to Ibanez catheter. 5. History of COPD. 6. Hypertension. 7. Hypothyroidism. 8. History of left breast cancer. 9. Back surgery. 10.DJD. 11.History of tubal ligation. 12.History of continued ongoing nicotine dependence. 13.FULL CODE. RECOMMENDATIONS AND DISCUSSION: This 70-year-old woman presented with multiple complex medical issues. We will monitor the patient closely continue the current management and symptomatic treatment. We will taper the dose of steroids. Continue the IV antibiotics. DVT prophylaxis. Continue the rest of medications. Repeat labs in the morning. Guarded prognosis. Further recommendations to follow. MMODL / IJN: [id number] /
[2021-01-07] MEDS: SYMBICORT 80-4.5 MCG INHALER INHALATION SCH (20:20)
[2021-01-07] MEDS: IPRATROPIUM 0.5 MG/2.5 ML NEBU INHALATION SCH (20:20)
[2021-01-07] MEDS: QUEtiapine 50 MG TAB PO SCH (20:46)
[2021-01-07] MEDS: MONTELUKAST 10 MG TAB PO SCH (20:46)
[2021-01-07] MEDS: diphenhydrAMINE 25 MG CAP PO SCH (20:46)
[2021-01-07] MEDS: CYANOCOBALAMIN 500 MCG TAB PO SCH (20:47)
[2021-01-07] MEDS: methylPREDNISolone SOD SUCCI 40 MG/ML 1 ML VIAL IV SCH (20:47)
[2021-01-07] MEDS ORDERED: ERGOCALCIFEROL 1,250 MCG (50,000 IU) CAPSULE PO SCH (21:00)
--- NOTE | 2021-01-08 00:47 | P.CONS ---
History of Present Illness - Reason for Consult Consult date: 01/07/21 ESBL E. coli urinary tract infection Requesting physician: Carly Mcmullen - Chief Complaint Fever and chills x few days - History of Present Illness Patient is a 70-year female presenting to the ER on 04 January 2021 about 3 days ago for evaluation of tongue swelling sore throat fever and chills patient symptoms started the night before presentation to the hospital patient has been intubated and symptoms to possible reaction to Flexeril which she took the night before presentation to the hospital patient be complaining of sore throat patient denies having any headache or other URI symptoms no chest pain shortness of breath or cough no nausea no vomiting no abdominal pain no diarrhea did not have any rash or joint swelling on presentation to the hospital patient did have a fever of 101.2 degree for night patient did have a white count of 14,000 creatinine was normal but he did have positive UA with moderate leukocyte esterase and 45 WBC patient urine culture has been finalized with ESBL E. coli that has prompted this infectious disease consultation patient will was treated with Zosyn the last few days patient did have a soft tissue x-ray of the neck we did shows epiglottis was normal subglottic trachea is normal some appears large and some heterogeneous enhancement of the abdominal placement significance chest x-ray some subsegmental atelectasis right lung base. Review of Systems Positive point has been mentioned in the HPI rest of the systems are negative Past Medical History Past Medical History: COPD, Hyperlipidemia, Thyroid Disorder Additional Past Medical History / Comment(s): left breast cancer recent, thyroid cancer History of Any Multi-Drug Resistant Organisms: None Reported Past Surgical History: Back Surgery, Breast Surgery, Hysterectomy, Tubal Ligation Additional Past Surgical History / Comment(s): benign right breast biopsy, bilateral cataract surgery, malignant left needle localization in 12/08/19 Past Anesthesia/Blood Transfusion Reactions: Previous Problems w/ Anesthesia Additional Past Anesthesia/Blood Transfusion Reaction / Comm: pt states she woke up during 2 surgeries Past Psychological History: No Psychological Hx Reported Smoking Status: Current every day smoker Past Alcohol Use History: None Reported Additional Past Alcohol Use History / Comment(s): started smoking in 1968, smokes 4-6 cigarettes daily Past Drug Use History: None Reported - Past Family History Brother(s) Family Medical History: Cancer Additional Family Medical History / Comment(s): lung, liver and colon cancer Medications and Allergies Home Medications Medication Instructions Recorded Confirmed Type Fluticasone/Umeclidin/Vilanter 1 puff INHALATION RT-HS 08/24/19 01/05/21 History [Trelegy Ellipta 100-62.5-25] Montelukast [Singulair] 10 mg PO HS 08/24/19 01/05/21 History PARoxetine HCL [Paxil] 40 mg PO DAILY 08/24/19 01/05/21 History Acetaminophen [Tylenol Extra 1,000 mg PO HS 01/07/20 01/05/21 History Strength] Alendronate Sodium [Fosamax] 70 mg PO BUTTS 01/05/21 01/05/21 History Cyanocobalamin (Vitamin B-12) 1,000 mcg PO HS 01/05/21 01/05/21 History [Vitamin B-12] Ergocalciferol (Vitamin D2) 1,250 mcg PO SA@2100 01/05/21 01/05/21 History [Drisdol (50,000 Iu)] Levothyroxine Sodium [Synthroid] 75 mcg PO DAILY 01/05/21 01/05/21 History Metoprolol Succinate [Toprol XL] 25 mg PO DAILY 01/05/21 01/05/21 History Omeprazole [PriLOSEC] 40 mg PO DAILY 01/05/21 01/05/21 History diphenhydrAMINE [Benadryl] 25 mg PO HS 01/05/21 01/05/21 History lisinopriL [Zestril] 2.5 mg PO DAILY 01/05/21 01/05/21 History Allergies Allergy/AdvReac Type Severity Reaction Status Date / Time codeine Allergy Swelling Verified 01/05/21 08:17 meperidine [From Demerol] Allergy Swelling Verified 01/05/21 08:17 morphine Allergy Swelling Verified 01/05/21 08:17 Physical Exam Vitals: Vital Signs Temp Pulse Resp BP Pulse Ox 01/07/21 14:57 98.1 F 55 L 18 112/58 95 01/07/21 14:00 65 18 01/07/21 08:30 93 L 01/07/21 08:00 65 18 01/07/21 07:00 97.4 F L 65 18 110/61 93 L 01/07/21 01:49 97.9 F 67 17 98/56 95 07/16/21 19:55 98.5 F 72 17 88/60 94 L 01/06/21 19:23 66 16 Intake and Output 01/07/21 01/07/21 01/07/21 06:59 14:59 22:59 Other: Voiding Method Toilet # Voids 3 1 GENERAL DESCRIPTION: An elderly female lying in bed, no distress. No tachypnea or accessory muscle of respiration use. HEENT: Shows Pallor , no scleral icterus. Oral mucous membrane is dry. No pharyngeal erythema or thrush NECK: Trachea central, no thyromegaly. LUNGS: Unlabored breathing. Clear to auscultation anteriorly. No wheeze or crackle. HEART: S1, S2, regular rate and rhythm. No loud murmur ABDOMEN: Soft, no tenderness , guarding or rigidity, no organomegaly EXTREMITIES: No edema of feet. SKIN: No rash, no masses palpable. NEUROLOGICAL: The patient is awake, alert, oriented x3, mood and affect normal. Results CBC & Chem 7: 01/04/21 22:45 01/04/21 22:45 Labs: Microbiology - Last 24 Hours (Table) 01/04/21 22:45 Urine Culture - Final Urine,Voided Escherichia coli 01/04/21 22:50 Blood Culture - Preliminary Blood No Growth after 48 hours 01/04/21 22:50 Blood Culture - Preliminary Blood No Growth after 48 hours Assessment and Plan Assessment: 1-patient presented to hospital with fever sore throat some tongue swelling that has been attributed to a possible allergic reaction to Flexeril that was started before the patient's symptoms started however the patient did have a positive UA now with urine culture has been finalized with ESBL E. coli concern for possible symptomatic negative infection secondary to this pathogen (1) Infection due to ESBL-producing Escherichia coli Current Visit: Yes Status: Acute Code(s): A49.8 - OTHER BACTERIAL INFECTIONS OF UNSPECIFIED SITE; Z16.12 - EXTENDED SPECTRUM BETA LACTAMASE (ESBL) RESISTANCE SNOMED Code(s): 353653523 (2) UTI due to extended-spectrum beta lactamase (ESBL) producing Escherichia coli Current Visit: Yes Status: Acute Code(s): N39.0 - URINARY TRACT INFECTION, SITE NOT SPECIFIED; B96.29 - OTH ESCHERICHIA COLI THE CAUSE OF DISEASES CLASSD ELSWHR; Z16.12 - EXTENDED SPECTRUM BETA LACTAMASE (ESBL) RESISTANCE S NOMED Code(s): 189326721 Plan: 1-UA and culture will be repeated in view of not really convincing urinary symptom per patient 2-discontinue Zosyn 3-start the patient on ertapenem 1 g daily We will follow on clinical condition and cultures to further adjust medication if needed Thank you for this consultation we will follow the patient along with you Time with Patient: Greater than 30
[2021-01-08 04:48] LABS: Appearance,Urine Clear (Clear); Bilirubin,Urine Negative (Negative); Blood,Urine Negative (Negative); Color,Urine Colorless; Glucose,Urine (UA) Negative (Negative); Ketones,Urine Negative (Negative); Leukocyte Esterase,Urine Negative (Negative); Nitrite,Urine Negative (Negative); Protein,Urine Negative (Negative); Specific Gravity,Urine 1.006 (1.001-1.035); Urobilinogen,Urine <2.0 mg/dL (<2.0)
[2021-01-08] MEDS: LEVOTHYROXINE 75 MCG TAB PO SCH (05:59)
[2021-01-08] MEDS: SYMBICORT 80-4.5 MCG INHALER INHALATION SCH ×2 (08:29→20:43)
[2021-01-08] MEDS: IPRATROPIUM 0.5 MG/2.5 ML NEBU INHALATION SCH ×4 (08:29→20:43)
[2021-01-08 09:49] LABS: Basophils # (A) 0.02 X 10*3/uL (0.00-0.10); Basophils % (A) 0.2 %; Eosinophils # (A) 0 X 10*3/uL (0.04-0.35); Eosinophils % (A) 0 %; HCT 35.8 % (37.2-46.3); HGB 11.6 g/dL (12.0-15.0); Lymphocytes # (A) 1.43 X 10*3/uL (0.90-5.00); Lymphocytes % (A) 14.1 %; MCH 29.8 pg (27.0-32.0); MCHC 32.4 g/dL (32.0-37.0); Monocytes # (A) 0.38 X 10*3/uL (0.20-1.00); Monocytes % (A) 3.7 %; Neutrophils # (A) 8.08 X 10*3/uL (1.80-7.70); Neutrophils % (A) 79.7 %; Platelet Count 294 X 10*3/uL (140-440); RBC 3.89 X 10*6/uL (4.10-5.20); RDW 16.9 % (11.5-14.5); WBC 10.14 X 10*3/uL (4.50-10.00)
[2021-01-08 09:53] LABS: African American GFR (CKD) 107.8 (60.0-200.0); Anion Gap 11.8 mmol/L (4.00-12.00); BUN/Creat Ratio 16.67 Ratio (12.00-20.00); C Reactive Protein 3.2 mg/dL (0.0-0.8); Calcium 8.2 mg/dL (8.7-10.3); Carbon Dioxide 27.2 mmol/L (21.6-31.8); Potassium 3.7 mmol/L (3.5-5.5)
[2021-01-08] MEDS: methylPREDNISolone SOD SUCCI 40 MG/ML 1 ML VIAL IV SCH ×2 (10:09→20:28)
[2021-01-08] MEDS: NICOTINE 14MG/24HR PATCH TRANSDERM SCH (10:09)
[2021-01-08] MEDS: METOPROLOL SUCCINATE (ER) 25 MG TAB.ER.24H PO SCH (10:10)
[2021-01-08] MEDS: FAMOTIDINE 20 MG/2 ML VIAL IV SCH (10:10)
[2021-01-08] MEDS: PARoxetine 20 MG TAB PO SCH (10:11)
--- NOTE | 2021-01-08 17:01 | PN ---
PROGRESS NOTE DATE OF SERVICE: 01/08/2021 REASON FOR FOLLOWUP: Positive culture with ESBL E coli. INTERVAL HISTORY: The patient is afebrile. The patient is feeling better. Her sore throat has improved. No chest pain, shortness of breath, abdominal pain. No urinary symptoms, no diarrhea. PHYSICAL EXAMINATION: Blood pressure 106/60 with a pulse of 69, temperature 98. She is 94% on room air. GENERAL DESCRIPTION: Is an elderly female lying in bed in no distress. RESPIRATORY SYSTEM: Unlabored breathing, clear to auscultation anteriorly. HEART: S1, S2. Regular rate. ABDOMEN: Soft. No tenderness. LABS: Hemoglobin 11.8, hematocrit 10.4, BUN of 10, creatinine 0.6. Repeat urine obtained yesterday has been negative. DIAGNOSTIC IMPRESSION AND PLAN: Patient with positive culture with ESBL E coli, possible contamination. The patient did not have a significant urinary symptoms and urine came back negative. We will discontinue the ( ) and monitor the patient closely off antibiotic therapy. MMODL / IJN: [id number] /
[2021-01-08] MEDS: MONTELUKAST 10 MG TAB PO SCH (20:28)
[2021-01-08] MEDS: ACETAMINOPHEN TAB 325 MG TAB PO PRN (20:28)
[2021-01-08] MEDS: QUEtiapine 50 MG TAB PO SCH (20:28)
[2021-01-08] MEDS: CYANOCOBALAMIN 500 MCG TAB PO SCH (20:28)
[2021-01-08] MEDS: diphenhydrAMINE 25 MG CAP PO SCH (20:28)
--- NOTE | 2021-01-08 22:10 | PN ---
PROGRESS NOTE DATE OF SERVICE: 01/08/2021. I am covering for Dr. Bragg. This 70-year-old woman was admitted with angioneurotic edema and possibly drug reaction also had ESBL UTI. Dr. Felix is following the patient closely. No chest pain. No palpitations. No fever. Chest x-ray was unremarkable. Dr. Felix recommended close followup at this time. No chest pain. No palpitations. No fever. PHYSICAL EXAMINATION: Alert and oriented times three. Pulse is 63. Blood pressure 119/70. Respirations 20, temperature 97.5, pulse ox 94% on room air. HEENT: Conjunctivae normal. Neck: No JVD. Cardiovascular: S1, S2 muffled. Respiratory System: Breath sounds diminished at the bases. A few rhonchi. No crackles. Abdomen: Soft. Nervous System: No focal deficits. Examination of the tongue: Minimal swelling present. LABS: WBC 11.5, hemoglobin 11.6. Repeat UA is negative. ASSESSMENT: 1. Swelling of the tongue and difficulty in breathing, possibly angioneurotic edema and drug reaction secondary to reaction possibly. 2. Increased WBC. 3. Hyponatremia. 4. Possible urinary tract infection with the ESBL E coli, possibly contamination. 5. History of chronic obstructive pulmonary disease. 6. Hypertension. 7. Hyperlipidemia. 8. History of breast cancer. 9. Back surgery. 10.Degenerative joint disease. 11.History of tubal ligation. 12.History of continued ongoing nicotine dependence. 13.FULL CODE. RECOMMENDATIONS AND DISCUSSION: Recommend to continue current medications, management and symptomatic treatment. Otherwise, at this time, I recommend follow closely with Dr. Felix and Dr. Bragg will follow. If the patient continues to be asymptomatic, patient may be able to be discharged home in the next 24 hours. Further recommendations to follow. MMODL / IJN: [id number] /
[2021-01-09] MEDS: LEVOTHYROXINE 75 MCG TAB PO SCH (05:08)
[2021-01-09 05:30] VITALS: TEMP 97.8
[2021-01-09] MEDS: IPRATROPIUM 0.5 MG/2.5 ML NEBU INHALATION SCH ×2 (07:18→10:58)
[2021-01-09] MEDS: SYMBICORT 80-4.5 MCG INHALER INHALATION SCH (07:18)
[2021-01-09] MEDS: PARoxetine 20 MG TAB PO SCH (08:20)
[2021-01-09] MEDS: methylPREDNISolone SOD SUCCI 40 MG/ML 1 ML VIAL IV SCH (08:20)
[2021-01-09] MEDS: NICOTINE 14MG/24HR PATCH TRANSDERM SCH (08:20)
[2021-01-09] MEDS: FAMOTIDINE 20 MG/2 ML VIAL IV SCH (08:21)
[2021-01-09] MEDS: METOPROLOL SUCCINATE (ER) 25 MG TAB.ER.24H PO SCH (08:21)
--- NOTE | 2021-01-09 11:19 | PN ---
PROGRESS NOTE DATE OF SERVICE: 01/09/2021 REASON FOR FOLLOWUP: Positive urine culture with ESBL E coli. INTERVAL HISTORY: The patient is afebrile. The patient is feeling better. Breathing comfortably. The patient denies having any chest pain, shortness of breath, no cough. Sore throat is better. No vomiting or diarrhea. EXAMINATION: Blood pressure 97/51, pulse 50, temperature 97.8, she is 92% on room air. General description is an elderly female up in the bed in no distress. Respiratory system: Unlabored breathing, clear to auscultation anteriorly. Heart S1, S2. Regular rate and rhythm. Abdomen is soft, no tenderness. LABS: Hemoglobin 11, hemoglobin 10.14, BUN of 10, creatinine 0.6. DIAGNOSTIC IMPRESSION AND PLAN: Patient with a positive urine culture with ESBL E coli, possible contaminate. Repeat urine is negative. No need for antibiotic on discharge. MMODL / IJN: [id number] /
[2021-01-09 11:34] VITALS: BP 152/62; PULSE 53; RESP 16
--- NOTE | 2021-01-09 13:13 | P.DS ---
Providers Date of admission: 01/07/21 13:57 Expected date of discharge: 01/09/21 Attending physician: Adrian Bragg MD Consults: 01/05/21 01:52 Consult Physician Routine Consulting Provider: Aftab Velasco Consult Reason/Comments: Tongue swelling; sepsis Do you want consulting provider notified?: Yes 01/07/21 15:26 Consult Physician Routine Consulting Provider: Zeinab Felix Consult Reason/Comments: esbl ecoli Do you want consulting provider notified?: Yes Primary care physician: Shanika Parr Hospital Course: Final Diagnoses: 1. Anaphylaxis. Secondary to new medication, Flexeril, on top of IV solumedrol. 2. Glossitis 3. HTN 4. Hypothyroidism 5. Acute UTI, E. coli, ESBL, possible contaminant suspected as per ID 6. Acute metabolic and toxic encephalopathy, multifactorial, secondary to glossitis, anaphylaxis, acute UTI and medication induced. Improved. Hospital course: Lorie Szymanski is a 70 yo F with PMH of multiple medication allergies, HTN, hypothyroidism, anxiety who presented to the ED with tongue swelling and lip tingling after starting a new medication. She states her PCP prescribed her a msucle relaxer she had never taken before and shortly after she developed these symptoms. She denies any respiratory symptoms but was worried so came to the hosptial. She denies wheezing or shortness of breath. On presentation she was hypotensive and tachycardic, WBC 14k, CMP unremarkable. CT neck showing isolated enlarged tongue. 01/06/2021 maintained on IV steroids, Zosyn. Yesterday IV steroid dose increased as per ENT-Dr. Velasco.Tongue edema improving, speech slurred Confusion persists, denies hallucinations -reports hallucinations resolved this morning. Minimal intake this am. Staff reports patient was agitated all night, with Ativan worsening symptoms. Urine culture pending. Maintaining O2 sats in the high 90s on room air. Initially maintained on empiric Zosyn to cover glossitis as well as IV steroids with significant clinical improvement. Initial urine culture reported greater than 100,000 colonies of E. coli, ESBL. Antibiotics further adjusted as per ID to ertapenem. Repeat urine culture reported no growth at 18 hours. Afebrile, WBC 10.14. No need for antibiotic on discharge as per ID, suspect possible contaminant. Patient will be discharged home today in a stable condition with guarded prognosis. The impression and plan of care has been dictated as directed. : I performed a history and examination of this patient, discussed the same with the dictator. I agree with the dictator's note ,documented as a scribe. Any additional findings or plans will be noted. Patient Condition at Discharge: Stable Plan - Discharge Summary Discharge Rx Participant: Yes New Discharge Prescriptions: New Nicotine 14Mg/24Hr Patch [Habitrol] 1 patch TRANSDERM DAILY #30 patch predniSONE 10 mg PO DIRECTED #30 tab Continue Montelukast [Singulair] 10 mg PO HS PARoxetine HCL [Paxil] 40 mg PO DAILY Fluticasone/Umeclidin/Vilanter [Trelegy Ellipta 100-62.5-25] 1 puff INHALATION RT-HS Acetaminophen [Tylenol Extra Strength] 1,000 mg PO HS Alendronate Sodium [Fosamax] 70 mg PO BUTTS Cyanocobalamin (Vitamin B-12) [Vitamin B-12] 1,000 mcg PO HS Levothyroxine Sodium [Synthroid] 75 mcg PO DAILY Omeprazole [PriLOSEC] 40 mg PO DAILY diphenhydrAMINE [Benadryl] 25 mg PO HS Ergocalciferol (Vitamin D2) [Drisdol (50,000 Iu)] 1,250 mcg PO SA@2100 lisinopriL [Zestril] 2.5 mg PO DAILY Metoprolol Succinate [Toprol XL] 25 mg PO DAILY Discharge Medication List Fluticasone/Umeclidin/Vilanter [Trelegy Ellipta 100-62.5-25] 1 puff INHALATION RT-HS 08/24/19 [History] Montelukast [Singulair] 10 mg PO HS 08/24/19 [History] PARoxetine HCL [Paxil] 40 mg PO DAILY 08/24/19 [History] Acetaminophen [Tylenol Extra Strength] 1,000 mg PO HS 01/07/20 [History] Alendronate Sodium [Fosamax] 70 mg PO BUTTS 01/05/21 [History] Cyanocobalamin (Vitamin B-12) [Vitamin B-12] 1,000 mcg PO HS 01/05/21 [History] Ergocalciferol (Vitamin D2) [Drisdol (50,000 Iu)] 1,250 mcg PO SA@2100 01/05/21 [History] Levothyroxine Sodium [Synthroid] 75 mcg PO DAILY 01/05/21 [History] Metoprolol Succinate [Toprol XL] 25 mg PO DAILY 01/05/21 [History] Omeprazole [PriLOSEC] 40 mg PO DAILY 01/05/21 [History] diphenhydrAMINE [Benadryl] 25 mg PO HS 01/05/21 [History] lisinopriL [Zestril] 2.5 mg PO DAILY 01/05/21 [History] Nicotine 14Mg/24Hr Patch [Habitrol] 1 patch TRANSDERM DAILY #30 patch 01/09/21 [Rx] predniSONE 10 mg PO DIRECTED #30 tab 01/09/21 [Rx] Follow up Appointment(s)/Referral(s): Adrian Bragg MD [STAFF PHYSICIAN] - 01/17/21 10:45 am Patient Instructions/Handouts: Prednisone (By mouth), Nicotine (Absorbed through the skin), General Allergic Reaction (ED) Activity/Diet/Wound Care/Special Instructions: Dr. Felix stated no need for an antibiotic at this time Discharge Disposition: HOME SELF-CARE
== END 2021-01-09 12:17 | disposition home or self-care (01) | DRG 915 ==
LOC: EC 21:22 → 6NMEDSUR 01-05 01:51 → OBSVTOIN 01-07 13:57 → 5NMEDONC 01-08 14:14
PROVIDERS: ADMIT Family Medicine; ATTEND Family Medicine
DX: T88.6XXA Anaphylactic reaction due to adverse effect of correct drug or medicament properly administered, initial encounter (principal); G92 Toxic encephalopathy; N39.0 Urinary tract infection, site not specified; Z16.12 Extended spectrum beta lactamase (ESBL) resistance; E87.1 Hypo-osmolality and hyponatremia; J98.11 Atelectasis; E03.9 Hypothyroidism, unspecified; T48.1X5A Adverse effect of skeletal muscle relaxants [neuromuscular blocking agents], initial encounter; I10 Essential (primary) hypertension; K14.0 Glossitis; J44.9 Chronic obstructive pulmonary disease, unspecified; M19.90 Unspecified osteoarthritis, unspecified site; T78.3XXA Angioneurotic edema, initial encounter; Z85.3 Personal history of malignant neoplasm of breast; Z85.850 Personal history of malignant neoplasm of thyroid; I45.10 Unspecified right bundle-branch block; B96.20 Unspecified Escherichia coli [E. coli] as the cause of diseases classified elsewhere; E78.5 Hyperlipidemia, unspecified; F17.210 Nicotine dependence, cigarettes, uncomplicated; Z79.52 Long term (current) use of systemic steroids; Z79.83 Long term (current) use of bisphosphonates; Z79.890 Hormone replacement therapy; Z79.899 Other long term (current) drug therapy; Z80.0 Family history of malignant neoplasm of digestive organs; Z90.710 Acquired absence of both cervix and uterus; Z98.51 Tubal ligation status; Z98.42 Cataract extraction status, left eye; Z98.41 Cataract extraction status, right eye; Z88.5 Allergy status to narcotic agent
CPT/HCPCS: 36415; 70491; 71045; 80048; 80053; 81001; 81003; 83605; 84145; 85025; 85610; 85730; 86140; 87040; 87077; 87086; 87186; 93005; 94640; 94760; 96365; 96366; 96375; 99285

== ENCOUNTER 2021-01-12 18:39 | Observation (INO) | payer MEDICARE, OTHER ==
[2021-01-12] MEDS ORDERED: SODIUM CHLORIDE 0.9% 800 ML IV STA (19:28)
[2021-01-12] MEDS ORDERED: SODIUM CHLORIDE 0.9% 1,000 ML IV STA (19:28)
[2021-01-12] MEDS ORDERED: cefTRIAXone IN SWFI 1,000 MG/10 ML SYRINGE IVP STA (19:28)
[2021-01-12 19:56] LABS: HCT 36.3 % (34.0-46.0); MCH 30.6 pg (25.0-35.0); MCHC 32.9 g/dL (31.0-37.0); MCV 92.9 fL (80.0-100.0); Mean Platelet Volume 7.2; Platelet Count 316 k/uL (150-450); RBC 3.91 m/uL (3.80-5.40); RDW 15.9 % (11.5-15.5); WBC 19.1 k/uL (3.8-10.6)
--- NOTE | 2021-01-12 19:57 | ED ---
General Adult HPI - General Chief complaint: Syncope Stated complaint: Syncope Time Seen by Provider: 01/12/21 19:18 Source: patient Mode of arrival: wheelchair Limitations: no limitations - History of Present Illness Initial comments: 70-year-old female presents emergency Department with a chief complaint of syncope and a fall. Patient states this occurred about 2 hours prior to arrival. Patient states she "overheated" at [facility] because it was hot. States she was moving boxes of water into her cart and overexerted herself. Patient reports hitting the ground and losing consciousness but she denies any blood thinners. States the people nearby contacted the embolus. Patient reports she was recently discharged from the hospital, 4 days ago for possible ALLERGIC reaction to a muscle relaxer and sepsis. She was discharged without any antibio tics. States she has been experiencing chills since she was discharged and had a fever of 104 yesterday. Today she was 99. She denies any cough urinary issues. Denies nausea or vomiting diarrhea, abdominal or back pain or chest pain or shortness of breath. She denies any headaches, visual change, one-sided weakness or paresthesias. She does a history of hypotension and states her systolic is typically in the 90s. Patient is a smoker. - Related Data Home Medications Medication Instructions Recorded Confirmed Fluticasone/Umeclidin/Vilanter 1 puff INHALATION RT-HS 08/24/19 01/05/21 [Emiliano Wingta 100-62.5-25] Montelukast [Singulair] 10 mg PO HS 08/24/19 01/05/21 PARoxetine HCL [Paxil] 40 mg PO DAILY 08/24/19 01/05/21 Acetaminophen [Tylenol Extra 1,000 mg PO HS 01/07/20 01/05/21 Strength] Alendronate Sodium [Fosamax] 70 mg PO BUTTS 01/05/21 01/05/21 Cyanocobalamin (Vitamin B-12) 1,000 mcg PO HS 01/05/21 01/05/21 [Vitamin B-12] Ergocalciferol (Vitamin D2) 1,250 mcg PO SA@2100 01/05/21 01/05/21 [Drisdol (50,000 Iu)] Levothyroxine Sodium [Synthroid] 75 mcg PO DAILY 01/05/21 01/05/21 Metoprolol Succinate [Toprol XL] 25 mg PO DAILY 01/05/21 01/05/21 Omeprazole [PriLOSEC] 40 mg PO DAILY 01/05/21 01/05/21 diphenhydrAMINE [Benadryl] 25 mg PO HS 01/05/21 01/05/21 lisinopriL [Zestril] 2.5 mg PO DAILY 01/05/21 01/05/21 Previous Rx's Medication Instructions Recorded Nicotine 14Mg/24Hr Patch [Habitrol] 1 patch TRANSDERM DAILY #30 patch 01/09/21 predniSONE 10 mg PO DIRECTED #30 tab 01/09/21 Allergies Allergy/AdvReac Type Severity Reaction Status Date / Time codeine Allergy Swelling Verified 01/12/21 18:41 cyclobenzaprine Allergy Swelling Verified 01/12/21 18:41 [From Flexeril] meperidine [From Demerol] Allergy Swelling Verified 01/12/21 18:41 morphine Allergy Swelling Verified 01/12/21 18:41 Review of Systems ROS Statement: Those systems with pertinent positive or pertinent negative responses have been documented in the HPI. ROS Other: All systems not noted in ROS Statement are negative. Past Medical History Past Medical History: COPD, Hyperlipidemia, Thyroid Disorder Additional Past Medical History / Comment(s): left breast cancer recent, thyroid cancer History of Any Multi-Drug Resistant Organisms: ESBL Date of last positivie culture/infection: 01/04/21 ESBL E.coli MDRO Source:: Urine Past Surgical History: Back Surgery, Breast Surgery, Hysterectomy, Tubal Ligation Additional Past Surgical History / Comment(s): benign right breast biopsy, bi lateral cataract surgery, malignant left needle localization in 12/08/19 Past Anesthesia/Blood Transfusion Reactions: Previous Problems w/ Anesthesia Additional Past Anesthesia/Blood Transfusion Reaction / Comment(s): pt states she woke up during 2 surgeries Past Psychological History: No Psychological Hx Reported Smoking Status: Current every day smoker Past Alcohol Use History: None Reported Past Drug Use History: None Reported - Past Family History Brother(s) Family Medical History: Cancer Additional Family Medical History / Comment(s): lung, liver and colon cancer General Exam Limitations: no limitations General appearance: alert, in no apparent distress Head exam: Present: atraumatic, normocephalic, normal inspection. Absent: other (Negative Jeronimo sign, raccoon eyes, hemotympanum.) Eye exam: Present: normal appearance, PERRL, EOMI Pupils: Present: normal accommodation ENT exam: Present: normal exam, normal oropharynx, mucous membranes dry, TM's normal bilaterally, normal external ear exam Neck exam: Present: normal inspection, full ROM. Absent: tenderness, lymphadenopathy Respiratory exam: Present: normal lung sounds bilaterally. Absent: respiratory distress, wheezes, rales, rhonchi, stridor Cardiovascular Exam: Present: regular rate, normal rhythm, normal heart sounds. Absent: systolic murmur, diastolic murmur GI/Abdominal exam: Present: soft, normal bowel sounds. Absent: distended, tenderness, guarding, rebound, rigid, diminished bowel sounds, hyperactive bowel sounds, organomegaly Extremities exam: Present: normal inspection, full ROM, normal capillary refill. Absent: tenderness, pedal edema, joint swelling Back exam: Present: normal inspection, full ROM. Absent: tenderness, CVA tenderness (R), CVA tenderness (L), muscle spasm, paraspinal tenderness, vertebral tenderness Neurological exam: Present: alert, oriented X3, CN II-XII intact, normal gait Psychiatric exam: Present: normal affect, normal mood Skin exam: Present: warm, dry, intact, normal color Course Vital Signs 01/12/21 01/12/21 01/12/21 18:41 18:44 21:42 Temperature 99.1 F Pulse Rate 72 58 L 64 Pulse Rate [ 58 L Left Supine Salvage Cutter ] Respiratory 20 18 18 Rate Blood Pressure 89/56 99/57 126/72 O2 Sat by Pulse 96 95 95 Oximetry EKG Findings - EKG Comments: EKG Findings:: Sinus arrhythmia. Incomplete right bundle-branch block. T-wave inversions in V3 to V6. Ventricular rate 71, NE 154, QRS 98, QTC 449. Medical Decision Making - Medical Decision Making 70-year-old female presents emergency Department with a chief complaint of syncope and a fall. On physical examination, patient is well appearing. No signs of a head injury. CT of the brain and C-spine is unremarkable. Chest x- ray shows no acute findings. Patient has elevated white blood count of 19 K. Possibly from recent corticosteroid use. She was febrile yesterday. 99.1F here. Lactic acid 1.2. Coags within normal limits. Hypokalemia with a potassium of 3.3. Patient was given 1.8 L of IV fluids based on her weight. Patient was also given 1 g Rocephin. Blood cultures are pending. UA is unremarkable. Patient will be admitted for further medical management. I spoke to who will admit. He requested cardiology consult. Case discussed with - Lab Data Result diagrams: 01/12/21 19:35 01/12/21 19:35 Lab Results 01/12/21 01/12/21 01/12/21 Range/Units 19:35 19:35 19:35 WBC 19.1 H (3.8-10.6) k/uL RBC 3.91 (3.80-5.40) m/uL Hgb 12.0 (11.4-16.0) gm/dL Hct 36.3 (34.0-46.0) % MCV 92.9 (80.0-100.0) fL MCH 30.6 (25.0-35.0) pg MCHC 32.9 (31.0-37.0) g/dL RDW 15.9 H (11.5-15.5) % Plt Count 316 (150-450) k/uL MPV 7.2 Neutrophils % (Manual) 77 % Lymphocytes % (Manual) 15 % Monocytes % (Manual) 8 % Neutrophils # (Manual) 14.71 H (1.3-7.7) k/uL Lymphocytes # (Manual) 2.87 (1.0-4.8) k/uL Monocytes # (Manual) 1.53 H (0-1.0) k/uL Nucleated RBCs 0 (0-0) /100 WBC Manual Slide Review Performed PT 11.3 (9.0-12.0) sec INR 1.1 (<1.2) APTT 22.6 (22.0-30.0) sec Sodium (137-145) mmol/L Potassium (3.5-5.1) mmol/L Chloride (98-107) mmol/L Carbon Dioxide (22-30) mmol/L Anion Gap mmol/L BUN (7-17) mg/dL Creatinine (0.52-1.04) mg/dL Est GFR (CKD-EPI)AfAm (>60 ml/min/1.73 sqM) Est GFR (CKD-EPI)NonAf (>60 ml/min/1.73 sqM) Glucose (74-99) mg/dL Plasma Lactic Acid David (0.7-2.0) mmol/L Calcium (8.4-10.2) mg/dL Total Bilirubin (0.2-1.3) mg/dL AST (14-36) U/L ALT (4-34) U/L Alkaline Phosphatase (38-126) U/L Troponin I (0.000-0.034) ng/mL Total Protein (6.3-8.2) g/dL Albumin (3.5-5.0) g/dL Urine Color Yellow Urine Appearance Clear (Clear) Urine pH 7.0 (5.0-8.0) Ur Specific Mcandrews 1.009 (1.001-1.035) Urine Protein Negative (Negative) Urine Glucose (UA) Negative (Negative) Urine Ketones Negative (Negative) Urine Blood Negative (Negative) Urine Nitrite Negative (Negative) Urine Bilirubin Negative (Negative) Urine Urobilinogen <2.0 (<2.0) mg/dL Ur Leukocyte Esterase Trace H (Negative) Urine RBC 2 (0-5) /hpf Urine WBC 3 (0-5) /hpf Ur Squamous Epith Cells 7 H (0-4) /hpf Urine Bacteria Rare H (None) /hpf Hyaline Casts 8 H (0-2) /lpf Urine Mucus Occasional H (None) /hpf 01/12/21 01/12/21 01/12/21 Range/Units 19:35 19:35 19:55 WBC (3.8-10.6) k/uL RBC (3.80-5.40) m/uL Hgb (11.4-16.0) gm/dL Hct (34.0-46.0) % MCV (80.0-100.0) fL MCH (25.0-35.0) pg MCHC (31.0-37.0) g/dL RDW (11.5-15.5) % Plt Count (150-450) k/uL MPV Neutrophils % (Manual) % Lymphocytes % (Manual) % Monocytes % (Manual) % Neutrophils # (Manual) (1.3-7.7) k/uL Lymphocytes # (Manual) (1.0-4.8) k/uL Monocytes # (Manual) (0-1.0) k/uL Nucleated RBCs (0-0) /100 WBC Manual Slide Review PT (9.0-12.0) sec INR (<1.2) APTT (22.0-30.0) sec Sodium 133 L (137-145) mmol/L Potassium 3.3 L (3.5-5.1) mmol/L Chloride 99 (98-107) mmol/L Carbon Dioxide 26 (22-30) mmol/L Anion Gap 8 mmol/L BUN 17 (7-17) mg/dL Creatinine 0.84 (0.52-1.04) mg/dL Est GFR (CKD-EPI)AfAm 82 (>60 ml/min/1.73 sqM) Est GFR (CKD-EPI)NonAf 71 (>60 ml/min/1.73 sqM) Glucose 107 H (74-99) mg/dL Plasma Lactic Acid David 1.2 (0.7-2.0) mmol/L Calcium 8.1 L (8.4-10.2) mg/dL Total Bilirubin 0.6 (0.2-1.3) mg/dL AST 15 (14-36) U/L ALT 10 (4-34) U/L Alkaline Phosphatase 82 (38-126) U/L Troponin I <0.012 (0.000-0.034) ng/mL Total Protein 5.8 L (6.3-8.2) g/dL Albumin 3.3 L (3.5-5.0) g/dL Urine Color Urine Appearance (Clear) Urine pH (5.0-8.0) Ur Specific Mcandrews (1.001-1.035) Urine Protein (Negative) Urine Glucose (UA) (Negative) Urine Ketones (Negative) Urine Blood (Negative) Urine Nitrite (Negative) Urine Bilirubin (Negative) Urine Urobilinogen (<2.0) mg/dL Ur Leukocyte Esterase (Negative) Urine RBC (0-5) /hpf Urine WBC (0-5) /hpf Ur Squamous Epith Cells (0-4) /hpf Urine Bacteria (None) /hpf Hyaline Casts (0-2) /lpf Urine Mucus (None) /hpf Disposition Clinical Impression: Syncopal episodes, Hypokalemia Disposition: ADMITTED IP TO THIS [facility] Condition: Fair Is patient prescribed a controlled substance at d/c from ED?: No Referrals: Shanika Parr DO [Primary Care Provider] - 1-2 days Time of Disposition: 22:51
[2021-01-12 20:06] LABS: INR 1.1 (<1.2); Partial Thromboplastin Time 22.6 sec (22.0-30.0); Prothrombin Time 11.3 sec (9.0-12.0)
[2021-01-12 20:07] LABS: Albumin 3.3 g/dL (3.5-5.0); Calcium 8.1 mg/dL (8.4-10.2); Potassium 3.3 mmol/L (3.5-5.1); Total Bilirubin 0.6 mg/dL (0.2-1.3); Total Protein 5.8 g/dL (6.3-8.2)
[2021-01-12 20:45] LABS: Lymphocytes # (M) 2.87 k/uL (1.0-4.8); Monocytes # (M) 1.53 k/uL (0-1.0); Neutrophils # (M) 14.71 k/uL (1.3-7.7); Neutrophils % (M) 77 %; Nucleated Red Blood Cells 0 /100 WBC (0-0); Total Cells Counted 100
--- NOTE | 2021-01-12 21:10 | XR ---
EXAMINATION: XR chest 2V DATE AND TIME: 01/12/2021 8:58 PM CLINICAL INDICATION: PHH; syncope TECHNIQUE: Departmental protocol COMPARISON: 01/07/2021 FINDINGS: The lungs appear to be clear. The pleural spaces are negative. The cardiac silhouette is not enlarged. The remainder of the mediastinal silhouette is unremarkable. The skeletal structures and soft tissues are negative for acute findings. Overlying soft tissues are prominent. IMPRESSION: No acute radiographic process.
--- NOTE | 2021-01-12 21:33 | CT ---
EXAMINATION TYPE: CT brain bennieine wo con DATE OF EXAM: 01/12/2021 COMPARISON: 01/04/2021 HISTORY: fall and HUERTA CT DLP: 1275.5 mGycm Automated exposure control for dose reduction was used. TECHNIQUE: CT scan of the head and cervical spine are performed without contrast. FINDINGS: There is no acute intracranial hemorrhage, mass effect, or midline shift identified. The ventricles and sulci are within normal limits in size. The globes are intact and the visualized sin uses are clear. Cervical spine is visualized in its entirety from C1 through upper thoracic levels and demonstrates s atisfactory alignment without evidence of acute fracture or dislocation. Prevertebral soft tissue ap pears within normal limits. The C1-C2 articulation is unremarkable. IMPRESSION: 1. There is no acute fracture or dislocation evident in the cervical spine. 2. No acute intracranial hemorrhage, mass effect, or midline shift is seen.
[2021-01-12 22:19] LABS: Appearance,Urine Clear (Clear); Bacteria,Urine Rare /hpf; Bilirubin,Urine Negative (Negative); Blood,Urine Negative (Negative); Color,Urine Yellow; Glucose,Urine (UA) Negative (Negative); Hyaline Casts,Urine 8 /lpf (0-2); Ketones,Urine Negative (Negative); Leukocyte Esterase,Urine Trace (Negative); Mucus,Urine Occasional /hpf; Nitrite,Urine Negative (Negative); Protein,Urine Negative (Negative); RBC,Urine 2 /hpf (0-5); Specific Gravity,Urine 1.009 (1.001-1.035); Squamous Epithelial Cell,Urine 7 /hpf (0-4); Urobilinogen,Urine <2.0 mg/dL (<2.0); WBC,Urine 3 /hpf (0-5)
[2021-01-12] MEDS ORDERED: POTASSIUM BICARBONATE/CIT AC 20 MEQ TABLET.EFF PO ONE (22:46)
[2021-01-12] MEDS ORDERED: NALOXONE 0.4 MG/ML 1 ML VIAL IV PRN (22:48)
[2021-01-12] MEDS ORDERED: POTASSIUM CHLORIDE ER 20 MEQ TAB.ER PO STA (22:51)
[2021-01-13 08:14] VITALS: RESP 16; TEMP 100
[2021-01-13 08:59] VITALS: BP 97/56; PULSE 58
[2021-01-13] MEDS ORDERED: METOPROLOL SUCCINATE (ER) 25 MG TAB.ER.24H PO SCH (09:00)
[2021-01-13] MEDS ORDERED: LEVOTHYROXINE 75 MCG TAB PO SCH (09:00)
[2021-01-13] MEDS ORDERED: PARoxetine 20 MG TAB PO SCH (09:00)
--- NOTE | 2021-01-13 09:19 | CONS ---
CONSULTATION CHIEF COMPLAINT: Syncope. HISTORY OF PRESENT ILLNESS: Lorie is a 70-year-old lady with history of left breast cancer status post radiation therapy, hypothyroidism, cardiomyopathy with mild LV systolic dysfunction and an abnormal EKG, who presented to the hospital having had an episode of syncope. The patient was at [facility] doing her grocery, bent down will pickup groceries, became dizzy and the passed out. She did not have any injury. She came back to it spontaneously. Did not have bladder or bowel incontinence. Did not have focal neurological deficits. Since being admitted to hospital, she has been doing well. I am told she did not have any cardiac arrhythmia. An EKG shows sinus rhythm, right bundle branch block, extensive ST-T wave changes but these changes were noted on a recent EKG. The patient had a recent cardiac workup including an echocardiogram that showed an ejection fraction of 45% and a stress test that was negative for ischemia. The patient has remained marginally hypotensive with systolic blood pressures of 94/60. Her white cell count is elevated. The patient was recently in the hospital apparently with swollen tongue. Her syncope could be related to hypotension, could be related to an infection and could be vasovagal. Given the recent cardiac workup, she does not require any other cardiac workup at this time. I am going to hold the beta benny and TREVA inhibitor that she is on as the blood pressure is low and I will check orthostatics and D-dimer on her. PAST MEDICAL HISTORY: Significant for breast cancer, cardiomyopathy, hypothyroidism. MEDICATIONS: Include lisinopril 2.5 mg daily, Paxil 40 daily, Singulair 10 daily, Toprol-XL 25 daily, levothyroxine, vitamin B12, Fosamax, prednisone, Prilosec, Habitrol. ALLERGIES: CODEINE, FLEXERIL, DEMEROL AND MORPHINE. FAMILY HISTORY: Negative for premature coronary artery disease. SOCIAL HISTORY: Negative for current smoking, EtOH abuse, or drug abuse. REVIEW OF SYSTEMS: HEENT: Unremarkable. CARDIAC: As described above. RESPIRATORY: Negative. GI: Negative. : Negative. ALLERGY/IMMUNOLOGY: Negative. SKIN: Negative. MUSCULOSKELETAL: Negative. ENDOCRINE: Negative. ONCOLOGICAL: Significant for breast cancer. CAREER COACH: Significant for syncope. PHYSICAL EXAMINATION: Patient is comfortable at rest. T-max is 100, heart rate is 67 beats per minute, blood pressure is 94/60, respiratory rate is 16, O2 saturation is 93%. There is no jugular venous distention. Carotid upstroke is diminished. There is no bruit. Chest exam reveals good air entry bilaterally. Heart exam reveals first and second heart sounds. Systolic murmur at the apex. Abdomen is soft. Exam of extremities did not reveal any edema. Peripheral pulses are felt. CAREER COACH exam did not reveal focal neurological deficits. LABS: Labs show a white cell count is 19, hemoglobin is 12, potassium is 3.3, creatinine is 0.8. Troponin is negative. ASSESSMENT: 1. Syncope, probably vasovagal in origin. 2. Elevated white cell count. PLAN: I am going to hold the Toprol-XL and the lisinopril that she is on. Review of recent testing on the patient, her elevated white cell count could be related to the steroids that she is on. Please ambulate the patient and if she is feeling well and remains stable without any further episodes of syncope, she may be discharged home later today and follow up with Dr. Perez in the office. MMSOUTHL / CHRISTOSN: [id number] /
[2021-01-13 10:20] VITALS: BMI 24.7
[2021-01-13] MEDS ORDERED: diphenhydrAMINE 25 MG CAP PO SCH (21:00)
[2021-01-13] MEDS ORDERED: MONTELUKAST 10 MG TAB PO SCH (21:00)
--- NOTE | 2021-01-25 22:58 | P.HPIM ---
History of Present Illness H&P Date: 01/13/21 Chief Complaint: syncope Lorie Szymanski is a 71 yo female with PMH of L breast cancer s/p radiation, cardiomyopathy who presented to the ED after a syncopal event. She states she was lifting boxes at [employer] and then blacked out hitting the ground and bystanders called EMS. She denies fevers or chills. No cough, shortness of breath. On presentation BP 89/56, WBC 19k, sodium 133, procalcitonin 0.27, UA with rare bacteria. EKG showing RBBB. CXR clear. Review of Systems All systems: negative Constitutional: Denies chills, Denies fever Eyes: denies blurred vision, denies pain Ears, nose, mouth and throat: Denies headache, Denies sore throat Cardiovascular: Reports syncope, Denies chest pain, Denies shortness of breath Respiratory: Denies cough Gastrointestinal: Denies abdominal pain, Denies diarrhea, Denies nausea, Denies vomiting Genitourinary: Denies dysuria, Denies hematuria Musculoskeletal: Denies myalgias Integumentary: Denies pruritus, Denies rash Neurological: Denies numbness, Denies weakness Psychiatric: Denies anxiety, Denies depression Endocrine: Denies fatigue, Denies weight change Past Medical History Past Medical History: COPD, Hyperlipidemia, Thyroid Disorder Additional Past Medical History / Comment(s): left breast cancer recent, thyroid cancer History of Any Multi-Drug Resistant Organisms: ESBL Date of last positivie culture/infection: 01/04/21 ESBL E.coli MDRO Source:: Urine Past Surgical History: Back Surgery, Breast Surgery, Hysterectomy, Tubal Ligation Additional Past Surgical History / Comment(s): benign right breast biopsy, bilateral cataract surgery, malignant left needle localization in 12/08/19 Past Anesthesia/Blood Transfusion Reactions: Previous Problems w/ Anesthesia Additional Past Anesthesia/Blood Transfusion Reaction / Comment(s): pt states she woke up during 2 surgeries Past Psychological History: No Psychological Hx Reported Smoking Status: Current every day smoker Past Alcohol Use History: None Reported Additional Past Alcohol Use History / Comment(s): started smoking in 1968, smokes 4-6 cigarettes daily Past Drug Use History: None Reported - Past Family History Brother(s) Family Medical History: Cancer Additional Family Medical History / Comment(s): lung, liver and colon cancer Medications and Allergies Home Medications Medication Instructions Recorded Confirmed Type Fluticasone/Umeclidin/Vilanter 1 puff INHALATION RT-HS 08/24/19 01/15/21 History [Trelegy Ellipta 100-62.5-25] Montelukast [Singulair] 10 mg PO HS 08/24/19 01/15/21 History PARoxetine HCL [Paxil] 40 mg PO DAILY 08/24/19 01/15/21 History Acetaminophen [Tylenol Extra 1,000 mg PO HS 01/07/20 01/15/21 History Strength] Alendronate Sodium [Fosamax] 70 mg PO SA 01/05/21 01/15/21 History Cyanocobalamin (Vitamin B-12) 1,000 mcg PO HS 01/05/21 01/15/21 History [Vitamin B-12] Ergocalciferol (Vitamin D2) 1,250 mcg PO BUTTS 01/05/21 01/15/21 History [Drisdol (50,000 Iu)] Levothyroxine Sodium [Synthroid] 75 mcg PO DAILY 01/05/21 01/15/21 History Metoprolol Succinate [Toprol XL] 25 mg PO DAILY 01/05/21 01/15/21 History Omeprazole [PriLOSEC] 40 mg PO DAILY 01/05/21 01/15/21 History diphenhydrAMINE [Benadryl] 25 mg PO HS 01/05/21 01/15/21 History predniSONE See Taper PO DIRECTED 01/13/21 01/15/21 History Nicotine 14Mg/24Hr Patch [Habitrol] 1 patch TRANSDERM DAILY PRN 01/15/21 01/15/21 History Amoxicillin/Potassium Clav 1 tab PO BID 7 Days #14 tab 01/17/21 Rx [Augmentin 875-125 Tablet] Allergies Allergy/AdvReac Type Severity Reaction Status Date / Time codeine Allergy Swelling Verified 01/14/21 18:59 cyclobenzaprine Allergy Swelling Verified 01/14/21 18:59 [From Flexeril] meperidine [From Demerol] Allergy Swelling Verified 01/14/21 18:59 morphine Allergy Swelling Verified 01/14/21 18:59 Physical Exam General: well nourished, well developed, NAD. Vitals reviewed Eyes: PERRL, EOMI, conjunctiva normal HENT: normocephalic, mucus membranes moist Neck: supple, no JVD Lungs: normal respiratory effort, no wheezes or rales CV: Regular rate and rhythm, no murmur. Peripheral pulses 2+ Abdomen: soft, nondistended, no organomegaly Lymph: no cervical or axillary LAD Skin: warm and dry. Neuro: A&Ox3, normal mood and affect Results CBC & Chem 7: 01/12/21 19:35 01/12/21 19:35 Thrombosis Risk Factor Assmnt - Choose All That Apply Each Risk Factor Represents 2 Points: Age 61-74 years Thrombosis Risk Factor Assessment Total Risk Factor Score: 2 Thrombosis Risk Factor Assessment Level: Low Risk Assessment and Plan Plan: 1. Syncope, suspect cardiogenic worsened by hypotension. Cardiology consult. Hold metoprool. Continue to monitor 2. Acute cystitis. Suspect urinary source of infection. Start augmentin 3. leukocytosis
--- NOTE | 2021-01-25 23:01 | P.DS ---
Providers Date of admission: 01/12/21 22:37 Expected date of discharge: 01/13/21 Attending physician: Adrian Bragg MD Consults: 01/12/21 22:49 Consult Physician Routine Consulting Provider: Moses Perez Consult Reason/Comments: Syncope Do you want consulting provider notified?: Yes Primary care physician: Shanika [facility] Course: Lorie Szymanski is a 71 yo female with PMH of L breast cancer s/p radiation, cardiomyopathy who presented to the ED after a syncopal event. She states she was lifting boxes at [employer] and then blacked out hitting the ground and bystanders called EMS. She denies fevers or chills. No cough, shortness of breath. On presentation BP 89/56, WBC 19k, sodium 133, procalcitonin 0.27, UA with rare bacteria. EKG showing RBBB. CXR clear. Pt was admitted to observation and evaluated by Cardiology> She was started on Augmentin for cystitis and blood cultures were drawn. Pt is discharge din stable condition and recommended to stay hydrated, complete her course of abx and follow up with PCP within 1 week of discharge. Patient Condition at Discharge: Fair Plan - Discharge Summary Discharge Rx Participant: No New Discharge Prescriptions: New Amoxicillin/Potassium Clav [Augmentin 875-125 Tablet] 1 tab PO BID 7 Days #14 tab Continue Montelukast [Singulair] 10 mg PO HS PARoxetine HCL [Paxil] 40 mg PO DAILY Fluticasone/Umeclidin/Vilanter [Trelegy Ellipta 100-62.5-25] 1 puff INHALATION RT-HS Acetaminophen [Tylenol Extra Strength] 1,000 mg PO HS Alendronate Sodium [Fosamax] 70 mg PO SA Cyanocobalamin (Vitamin B-12) [Vitamin B-12] 1,000 mcg PO HS Levothyroxine Sodium [Synthroid] 75 mcg PO DAILY Omeprazole [PriLOSEC] 40 mg PO DAILY diphenhydrAMINE [Benadryl] 25 mg PO HS Ergocalciferol (Vitamin D2) [Drisdol (50,000 Iu)] 1,250 mcg PO BUTTS Metoprolol Succinate [Toprol XL] 25 mg PO DAILY predniSONE See Taper PO DIRECTED Nicotine 14Mg/24Hr Patch [Habitrol] 1 patch TRANSDERM DAILY PRN PRN Reason: Nicotine Cravings Discharge Medication List Fluticasone/Umeclidin/Vilanter [Trelegy Ellipta 100-62.5-25] 1 puff INHALATION RT-HS 08/24/19 [History] Montelukast [Singulair] 10 mg PO HS 08/24/19 [History] PARoxetine HCL [Paxil] 40 mg PO DAILY 08/24/19 [History] Acetaminophen [Tylenol Extra Strength] 1,000 mg PO HS 01/07/20 [History] Alendronate Sodium [Fosamax] 70 mg PO SA 01/05/21 [History] Cyanocobalamin (Vitamin B-12) [Vitamin B-12] 1,000 mcg PO HS 01/05/21 [History] Ergocalciferol (Vitamin D2) [Drisdol (50,000 Iu)] 1,250 mcg PO BUTTS 01/05/21 [History] Levothyroxine Sodium [Synthroid] 75 mcg PO DAILY 01/05/21 [History] Metoprolol Succinate [Toprol XL] 25 mg PO DAILY 01/05/21 [History] Omeprazole [PriLOSEC] 40 mg PO DAILY 01/05/21 [History] diphenhydrAMINE [Benadryl] 25 mg PO HS 01/05/21 [History] predniSONE See Taper PO DIRECTED 01/13/21 [History] Nicotine 14Mg/24Hr Patch [Habitrol] 1 patch TRANSDERM DAILY PRN 01/15/21 [History] Amoxicillin/Potassium Clav [Augmentin 875-125 Tablet] 1 tab PO BID 7 Days #14 tab 01/17/21 [Rx] Follow up Appointment(s)/Referral(s): Shanika Parr DO [Primary Care Provider] - 1 Week Patient Instructions/Handouts: Syncope (DC) Discharge Disposition: HOME SELF-CARE
== END 2021-01-13 14:48 | disposition home or self-care (01) ==
LOC: EC 18:39 → 6NMEDSUR 22:37
PROVIDERS: ADMIT Family Medicine; ATTEND Family Medicine
DX: R55 Syncope and collapse (principal); E03.9 Hypothyroidism, unspecified; E78.5 Hyperlipidemia, unspecified; E87.6 Hypokalemia; F17.200 Nicotine dependence, unspecified, uncomplicated; I42.9 Cardiomyopathy, unspecified; I45.10 Unspecified right bundle-branch block; J44.9 Chronic obstructive pulmonary disease, unspecified; Z79.83 Long term (current) use of bisphosphonates; Z79.890 Hormone replacement therapy; Z80.0 Family history of malignant neoplasm of digestive organs; Z85.3 Personal history of malignant neoplasm of breast; Z85.850 Personal history of malignant neoplasm of thyroid; Z90.710 Acquired absence of both cervix and uterus; Z92.3 Personal history of irradiation
CPT/HCPCS: 99285; 96361; 96374; G0378 ×2; J0696; 36415; 70450; 71046; 72125; 80053; 81001; 83605; 84145; 84484; 85025; 85379; 85610; 85730; 87040; 93005

== ENCOUNTER 2021-01-14 18:58 | Inpatient (IN) | payer MEDICARE, OTHER ==
[2021-01-14] MEDS ORDERED: VANCOMYCIN IV PER PHARMACY 1 EACH MISC MISCELLANE PRN (19:17)
[2021-01-14] MEDS ORDERED: ACETAMINOPHEN TAB 500 MG TAB PO STA (19:20)
--- NOTE | 2021-01-14 19:21 | ED ---
General Adult HPI - General Chief complaint: Fever Stated complaint: sepsis Time Seen by Provider: 01/14/21 19:04 Source: patient Mode of arrival: ambulatory Limitations: no limitations - History of Present Illness Initial comments: Dictation was produced using DermLink dictation software. please excuse any grammatical, word or spelling errors. Chief Complaint: 70-year-old female presents to the emergency department for abnormal blood culture result History of Present Illness: 70-year-old female she has had multiple days of fever. She was recently admitted to the hospital. 2 days ago she had blood cultures. Preliminary result showed positive gram-positive cocci in clusters. Result was given to patient's primary care doctor. Primary care doctor called patient told her come to the emergency department. Patient still has c omplaining of fevers. She has a mild cough. Denies any dysuria. No abdominal pain. No runny nose or cough. The ROS documented in this emergency department record has been reviewed and confirmed by me. Those systems with pertinent positive or negative responses have been documented in the HPI. All other systems are other negative and/or noncontributory. PHYSICAL EXAM: General Impression: Alert and oriented x3, not in acute distress HEENT: Normocephalic atraumatic, extra-ocular movements intact, pupils equal and reactive to light bilaterally, mucous membranes moist, exopthalmos Cardiovascular: Heart regular rate and rhythm Chest: Able to complete full sentences, no retractions, no tachypnea Abdomen: abdomen soft, non-tender, non-distended, no organomegaly Musculoskeletal: Pulses present and equal in all extremities, no peripheral edema Motor: no focal deficits noted Neurological: CN II-XII grossly intact, no focal motor or sensory deficits noted Skin: Intact with no visualized rashes Psych: Normal affect and mood ED course: 70-year-old well-appearing female presents emergency department for abnormal blood culture result from blood culture that was obtained 2 days ago. She was recently admitted to the hospital for syncope. She is complaining of several days of constitutional symptoms. Vital signs upon arrival are within acceptable limits. Repeat temperature orally done at the bedside shows 102.3 oral. There is concern that patient's symptoms are secondary to bacteremia. Patient started on vancomycin. Laboratory evaluation obtained. Mild leukocytosis of 12.0. Metabolic panel is negative. TSH is negative. 4 panel viral PCR is negative. Chest x-ray is no nacute. Patient be admitted to [facility] hospitalist group. Infectious disease on consult. - Related Data Home Medications Medication Instructions Recorded Confirmed Fluticasone/Umeclidin/Vilanter 1 puff INHALATION RT-HS 08/24/19 01/13/21 [Trelegy Ellipta 100-62.5-25] Montelukast [Singulair] 10 mg PO HS 08/24/19 01/13/21 PARoxetine HCL [Paxil] 40 mg PO DAILY 08/24/19 01/13/21 Acetaminophen [Tylenol Extra 1,000 mg PO HS 01/07/20 01/13/21 Strength] Alendronate Sodium [Fosamax] 70 mg PO BUTTS 01/05/21 01/13/21 Cyanocobalamin (Vitamin B-12) 1,000 mcg PO HS 01/05/21 01/13/21 [Vitamin B-12] Ergocalciferol (Vitamin D2) 1,250 mcg PO SA@2100 01/05/21 01/13/21 [Drisdol (50,000 Iu)] Levothyroxine Sodium [Synthroid] 75 mcg PO DAILY 01/05/21 01/13/21 Metoprolol Succinate [Toprol XL] 25 mg PO DAILY 01/05/21 01/13/21 Omeprazole [PriLOSEC] 40 mg PO DAILY 01/05/21 01/13/21 diphenhydrAMINE [Benadryl] 25 mg PO HS 01/05/21 01/13/21 lisinopriL [Zestril] 2.5 mg PO DAILY 01/05/21 01/13/21 predniSONE See Taper PO DIRECTED 01/13/21 01/13/21 Previous Rx's Medication Instructions Recorded Nicotine 14Mg/24Hr Patch [Habitrol] 1 patch TRANSDERM DAILY #30 patch 01/09/21 Allergies Allergy/AdvReac Type Severity Reaction Status Date / Time codeine Allergy Swelling Verified 01/14/21 18:59 cyclobenzaprine Allergy Swelling Verified 01/14/21 18:59 [From Flexeril] meperidine [From Demerol] Allergy Swelling Verified 01/14/21 18:59 morphine Allergy Swelling Verified 01/14/21 18:59 Review of Systems ROS Statement: Those systems with pertinent positive or pertinent negative responses have been documented in the HPI. ROS Other: All systems not noted in ROS Statement are negative. Past Medical History Past Medical History: COPD, Hyperlipidemia, Thyroid Disorder Additional Past Medical History / Comment(s): left breast cancer recent, thyroid cancer History of Any Multi-Drug Resistant Organisms: ESBL Date of last positivie culture/infection: 01/04/21 ESBL E.coli MDRO Source:: Urine Past Surgical History: Back Surgery, Breast Surgery, Hysterectomy, Tubal Ligation Additional Past Surgical History / Comment(s): benign right breast biopsy, bilateral cataract surgery, malignant left needle localization in 12/08/19 Past Anesthesia/Blood Transfusion Reactions: Previous Problems w/ Anesthesia Additional Past Anesthesia/Blood Transfusion Reaction / Comment(s): pt states she woke up during 2 surgeries Past Psychological History: No Psychological Hx Reported Smoking Status: Current every day smoker Past Alcohol Use History: None Reported Past Drug Use History: None Reported - Past Family History Brother(s) Family Medical History: Cancer Additional Family Medical History / Comment(s): lung, liver and colon cancer General Exam Limitations: no limitations Course Vital Signs 01/14/21 01/14/21 01/14/21 18:59 19:19 20:02 Temperature 98.4 F 102.3 F H Pulse Rate 78 Respiratory 16 16 Rate Blood Pressure 98/55 O2 Sat by Pulse 98 Oximetry 01/14/21 20:46 Temperature 99.4 F Pulse Rate 79 Respiratory 16 Rate Blood Pressure 101/62 O2 Sat by Pulse 97 Oximetry Medical Decision Making - Lab Data Result diagrams: 01/14/21 19:25 01/14/21 19:25 Lab Results 01/14/21 01/14/21 01/14/21 Range/Units 19:25 19:25 19:25 WBC 12.0 H (3.8-10.6) k/uL RBC 3.98 (3.80-5.40) m/uL Hgb 12.1 (11.4-16.0) gm/dL Hct 37.1 (34.0-46.0) % MCV 93.1 (80.0-100.0) fL MCH 30.4 (25.0-35.0) pg MCHC 32.6 (31.0-37.0) g/dL RDW 16.6 H (11.5-15.5) % Plt Count 238 (150-450) k/uL MPV 7.3 Anisocytosis Slight Sodium 135 L (137-145) mmol/L Potassium 3.7 (3.5-5.1) mmol/L Chloride 100 (98-107) mmol/L Carbon Dioxide 24 (22-30) mmol/L Anion Gap 11 mmol/L BUN 8 (7-17) mg/dL Creatinine 0.68 (0.52-1.04) mg/dL Est GFR (CKD-EPI)AfAm >90 (>60 ml/min/1.73 sqM) Est GFR (CKD-EPI)NonAf 90 (>60 ml/min/1.73 sqM) Glucose 91 (74-99) mg/dL Plasma Lactic Acid David 1.3 (0.7-2.0) mmol/L Calcium 8.4 (8.4-10.2) mg/dL TSH 0.587 (0.465-4.680) mIU/L Free T4 1.65 (0.78-2.19) ng/dL Free T3 pg/mL 2.1 L (2.8-5.3) pg/ml Influenza Type A (PCR) (Not Detectd) Influenza Type B (PCR) (Not Detectd) RSV (PCR) (Not Detectd) SARS-CoV-2 (PCR) (Not Detectd) 01/14/21 Range/Units 19:30 WBC (3.8-10.6) k/uL RBC (3.80-5.40) m/uL Hgb (11.4-16.0) gm/dL Hct (34.0-46.0) % MCV (80.0-100.0) fL MCH (25.0-35.0) pg MCHC (31.0-37.0) g/dL RDW (11.5-15.5) % Plt Count (150-450) k/uL MPV Anisocytosis Sodium (137-145) mmol/L Potassium (3.5-5.1) mmol/L Chloride (98-107) mmol/L Carbon Dioxide (22-30) mmol/L Anion Gap mmol/L BUN (7-17) mg/dL Creatinine (0.52-1.04) mg/dL Est GFR (CKD-EPI)AfAm (>60 ml/min/1.73 sqM) Est GFR (CKD-EPI)NonAf (>60 ml/min/1.73 sqM) Glucose (74-99) mg/dL Plasma Lactic Acid David (0.7-2.0) mmol/L Calcium (8.4-10.2) mg/dL TSH (0.465-4.680) mIU/L Free T4 (0.78-2.19) ng/dL Free T3 pg/mL (2.8-5.3) pg/ml Influenza Type A (PCR) Not Detected (Not Detectd) Influenza Type B (PCR) Not Detected (Not Detectd) RSV (PCR) Not Detected (Not Detectd) SARS-CoV-2 (PCR) Not Detected (Not Detectd) Disposition Clinical Impression: Fever Disposition: ADMITTED IP TO THIS HOSP Condition: Fair
[2021-01-14] MEDS ORDERED: VANCOMYCIN 1,000 MG in SODIUM CHLORIDE 0.9% 250 ML IVPB STA (19:24)
[2021-01-14 20:06] LABS: African American GFR (CKD) >90 (>60 ml/min/1.73 sqM); Anion Gap 11 mmol/L; Blood Urea Nitrogen 8 mg/dL (7-17); Calcium 8.4 mg/dL (8.4-10.2); Carbon Dioxide 24 mmol/L (22-30); Chloride 100 mmol/L (98-107); Glucose 91 mg/dL (74-99); Non-African American GFR(CKD) 90 (>60 ml/min/1.73 sqM); Potassium 3.7 mmol/L (3.5-5.1); Sodium 135 mmol/L (137-145)
[2021-01-14 20:23] LABS: T4, Free (Free Thyroxine) 1.65 ng/dL (0.78-2.19)
[2021-01-14 20:25] LABS: Anisocytosis Slight; HCT 37.1 % (34.0-46.0); HGB 12.1 gm/dL (11.4-16.0); MCH 30.4 pg (25.0-35.0); MCHC 32.6 g/dL (31.0-37.0); MCV 93.1 fL (80.0-100.0); Mean Platelet Volume 7.3; Platelet Count 238 k/uL (150-450); RBC 3.98 m/uL (3.80-5.40); RDW 16.6 % (11.5-15.5)
[2021-01-14] MEDS ORDERED: ONDANSETRON 4 MG/2 ML VIAL IVP PRN (20:36)
[2021-01-14] MEDS ORDERED: ACETAMINOPHEN TAB 325 MG TAB PO PRN (20:36)
[2021-01-14] MEDS ORDERED: NALOXONE 0.4 MG/ML 1 ML VIAL IV PRN (20:36)
--- NOTE | 2021-01-14 20:38 | XR ---
EXAMINATION TYPE: XR chest 1V portable DATE OF EXAM: 01/14/2021 COMPARISON: 01/12/2021 HISTORY: Fever TECHNIQUE: FINDINGS: Heart and mediastinum are normal. Lungs are clear of infiltrate. There is no heart failure. There are no hilar masses. There is relative poor inspiration. IMPRESSION: Poor inspiration. No acute lung disease. Inspiration slightly decreased compared to recen t exam.
[2021-01-14] MEDS ORDERED: SODIUM CHLORIDE 0.9% 1,000 ML IV SCH (20:45)
[2021-01-14 22:07] LABS: Lymphocytes # (M) 2.76 k/uL (1.0-4.8); Monocytes # (M) 0.96 k/uL (0-1.0); Neutrophils # (M) 8.28 k/uL (1.3-7.7); Neutrophils % (M) 69 %; Nucleated Red Blood Cells 0 /100 WBC (0-0); Total Cells Counted 100
[2021-01-14 22:10] LABS: Anisocytosis (M) Present; Poikilocytosis (M) Present; Polychromasia Present
[2021-01-15] MEDS ORDERED: PANTOPRAZOLE 40 MG/10 ML VIAL IV SCH (09:00)
[2021-01-15] MEDS ORDERED: NON FORMULARY DRUG (Omeprazole 40 MG Capsule.Dr) PO SCH (09:00)
[2021-01-15] MEDS ORDERED: METOPROLOL SUCCINATE (ER) 25 MG TAB.ER.24H PO SCH (09:00)
[2021-01-15] MEDS ORDERED: ERGOCALCIFEROL 1,250 MCG (50,000 IU) CAPSULE PO SCH (09:00)
[2021-01-15] MEDS: SODIUM CHLORIDE 0.9% 1,000 ML IV SCH ×2 (09:58→18:32)
--- NOTE | 2021-01-15 10:06 | P.HPIM ---
History of Present Illness Patient is a pleasant 70-year-old female was admitted after she was called back by ER physician for abnormal and positive blood cultures with gram-positive cocci appears to have 1 out of 2 positive cultures. Patient was discharged from the hospital on January 09 at that time patient didn't have any infection patient did not require any antibiotics patient was admitted for ALLERGIC reaction and was discharged after treatment. Subsequently the patient started having fevers because of which came back the emergency department on 12 of January at that time patient workup for sepsis was negative blood cultures were obtained and patient was discharged without antibiotics which was appropriate. Patient was called back because of the positive blood cultures from . Repeat blood cultures were obtained. Urinalysis was ordered chest x-ray within normal limits patient denied any cough or UTI symptoms denied any abdominal pain denied any cellulitis. Patient was started on vancomycin. Patient blood pressure is low at this time because of which I'm holding off on lisinopril and metoprolol patient is bradycardic as well. Patient denied any symptoms patient does have leukocytosis. REVIEW OF SYSTEMS: CONSTITUTIONAL: No fever, no malaise, no fatigue. HEENT: No recent visual problems or hearing problems. Denied any sore throat. CARDIOVASCULAR: No chest pain, orthopnea, PND, no palpitations, no syncope. PULMONARY: No shortness of breath, no cough, no hemoptysis. GASTROINTESTINAL: No diarrhea, no nausea, no vomiting, no abdominal pain. NEUROLOGICAL: No headaches, no weakness, no numbness. HEMATOLOGICAL: Denies any bleeding or petechiae. GENITOURINARY: Denies any burning micturition, frequency, or urgency. MUSCULOSKELETAL/RHEUMATOLOGICAL: Denies any joint pain, swelling, or any muscle pain. ENDOCRINE: Denies any polyuria or polydipsia. The rest of the 14-point review of systems is negative. PHYSICAL EXAMINATION: GENERAL: The patient is alert and oriented x3, not in any acute distress. Well developed, well nourished. HEENT: Pupils are round and equally reacting to light. EOMI. No scleral icterus. No conjunctival pallor. Normocephalic, atraumatic. No pharyngeal erythema. No thyromegaly. CARDIOVASCULAR: S1 and S2 present. No murmurs, rubs, or gallops. PULMONARY: Chest is clear to auscultation, no wheezing or crackles. ABDOMEN: Soft, nontender, nondistended, normoactive bowel sounds. No palpable organomegaly. MUSCULOSKELETAL: No joint swelling or deformity. EXTREMITIES: No cyanosis, clubbing, or pedal edema. NEUROLOGICAL: Gross neurological examination did not reveal any focal deficits. SKIN: No rashes. Assessment and plan -Bacteremia repeat blood cultures will be obtained, it's not clear from the lab data whether 2 of the 2 cultures are positive for that were positive. Patient will be started on amp vancomycin as patient has gram-positive cocci in clusters. Infectious disease was consulted from ER. Source of this infection if at all that his infection is not clear, can be contamination. -Leukocytosis due to assessment #1 -Hypertension can be related to bacteremia or sepsis. Hold off on an echo his medications including beta benny -Mild sinus bradycardia hold off on beta blockers mentioned above Hypothyroidism -History of breast cancer completed immunotherapy about a 2 month ago has been remission. -DVT prophylaxis: Lovenox Past Medical History Past Medical History: COPD, Hyperlipidemia, Thyroid Disorder Additional Past Medical History / Comment(s): left breast cancer recent, thyroid cancer History of Any Multi-Drug Resistant Organisms: ESBL Date of last positivie culture/infection: 01/04/21 ESBL E.coli MDRO Source:: Urine Past Surgical History: Back Surgery, Breast Surgery, Hysterectomy, Tubal Ligation Additional Past Surgical History / Comment(s): benign right breast biopsy, bilateral cataract surgery, malignant left needle localization in 12/08/19 Past Anesthesia/Blood Transfusion Reactions: Previous Problems w/ Anesthesia Additional Past Anesthesia/Blood Transfusion Reaction / Comment(s): pt states she woke up during 2 surgeries Past Psychological History: No Psychological Hx Reported Smoking Status: Current every day smoker Past Alcohol Use History: None Reported Past Drug Use History: None Reported - Past Family History Brother(s) Family Medical History: Cancer Additional Family Medical History / Comment(s): lung, liver and colon cancer Medications and Allergies Home Medications Medication Instructions Recorded Confirmed Type Fluticasone/Umeclidin/Vilanter 1 puff INHALATION RT-HS 08/24/19 01/15/21 History [Trelegy Ellipta 100-62.5-25] Montelukast [Singulair] 10 mg PO HS 08/24/19 01/15/21 History PARoxetine HCL [Paxil] 40 mg PO DAILY 08/24/19 01/15/21 History Acetaminophen [Tylenol Extra 1,000 mg PO HS 01/07/20 01/15/21 History Strength] Alendronate Sodium [Fosamax] 70 mg PO SA 01/05/21 01/15/21 History Cyanocobalamin (Vitamin B-12) 1,000 mcg PO HS 01/05/21 01/15/21 History [Vitamin B-12] Ergocalciferol (Vitamin D2) 1,250 mcg PO BUTTS 01/05/21 01/15/21 History [Drisdol (50,000 Iu)] Levothyroxine Sodium [Synthroid] 75 mcg PO DAILY 01/05/21 01/15/21 History Metoprolol Succinate [Toprol XL] 25 mg PO DAILY 01/05/21 01/15/21 History Omeprazole [PriLOSEC] 40 mg PO DAILY 01/05/21 01/15/21 History diphenhydrAMINE [Benadryl] 25 mg PO HS 01/05/21 01/15/21 History lisinopriL [Zestril] 2.5 mg PO DAILY 01/05/21 01/15/21 History predniSONE See Taper PO DIRECTED 01/13/21 01/15/21 History Nicotine 14Mg/24Hr Patch [Habitrol] 1 patch TRANSDERM DAILY PRN 01/15/21 01/15/21 History Allergies Allergy/AdvReac Type Severity Reaction Status Date / Time codeine Allergy Swelling Verified 01/14/21 18:59 cyclobenzaprine Allergy Swelling Verified 01/14/21 18:59 [From Flexeril] meperidine [From Demerol] Allergy Swelling Verified 01/14/21 18:59 morphine Allergy Swelling Verified 01/14/21 18:59 Physical Exam Vitals: Vital Signs Temp Pulse Resp BP Pulse Ox 01/15/21 07:00 98.5 F 01/15/21 06:12 50 L 16 90/54 94 L 01/15/21 02:07 54 L 16 101/60 94 L 01/15/21 01:13 58 L 16 94/46 93 L 01/14/21 22:38 98.9 F 58 L 16 95/58 94 L 01/14/21 21:00 99.0 F 74 16 97/56 98 01/14/21 20:46 99.4 F 79 16 101/62 97 01/14/21 20:02 16 01/14/21 19:19 102.3 F H 01/14/21 18:59 98.4 F 78 16 98/55 98 Intake and Output 01/14/21 01/15/21 01/15/21 22:59 06:59 14:59 Other: Weight 56.699 kg Results CBC & Chem 7: 01/14/21 19:25 01/14/21 19:25 Labs: Abnormal Lab Results - Last 24 Hours (Table) 01/14/21 01/14/21 Range/Units 19:25 19:25 WBC 12.0 H (3.8-10.6) k/uL RDW 16.6 H (11.5-15.5) % Neutrophils # (Manual) 8.28 H (1.3-7.7) k/uL Sodium 135 L (137-145) mmol/L Free T3 pg/mL 2.1 L (2.8-5.3) pg/ml
[2021-01-15] MEDS: VANCOMYCIN 1,000 MG in SODIUM CHLORIDE 0.9% 250 ML IVPB SCH ×2 (10:31→22:26)
[2021-01-15] MEDS: PARoxetine 20 MG TAB PO SCH (10:32)
[2021-01-15] MEDS: LEVOTHYROXINE 75 MCG TAB PO SCH (10:32)
[2021-01-15] MEDS: IPRATROPIUM 0.5 MG/2.5 ML NEBU INHALATION SCH ×3 (13:17→20:55)
[2021-01-15] MEDS: SYMBICORT 80-4.5 MCG INHALER INHALATION SCH (20:56)
[2021-01-15] MEDS ORDERED: IOPAMIDOL CONTRAST (ORAL USE) VIAL PO PRN (22:12)
--- NOTE | 2021-01-15 22:21 | P.CONS ---
History of Present Illness - Reason for Consult Consult date: 01/15/21 Bacteremia Requesting physician: Ovidio Thorpe - Chief Complaint Fever x 1 day - History of Present Illness Patient is 70-year female who was recently admitted to this facility patient was having some symptoms of sore throat and a possible allergic reaction to a drug in the outpatient setting patient also have a urine that was positive and the patient was treated with the Rocephin however subsequently urine cultures came back positive for ESBL patient did have a UA repeated which came back negative at that point patient also have blood cultures drawn which were negative by the time patient was discharged from the hospital subsequently there was blood cultures came back positive with gram-positive/micrococcus the patient primary care physician was called by the lab who subsequently told the patient to come back to the hospital patient is complaining of fever at home of 105 F patient denies having any headache and the patient sore throat has resolved patient denies having any chest pain shortness of breath or cough no abdominal pain no diarrhea and no significant urinary symptoms of burning or frequency on presentation to the hospital the patient did have a fever of 102.3 F patient did have a chest x-ray that was reported negative for any acute infiltrate she did have white count of 12,000 vaughan PCR was negative UA was requested however has not been obtained in more than 24 hours now patient was started on vancomycin has been admitted to hospital infectious disease was consulted for further management Review of Systems Positive point has been mentioned in the HPI rest of the systems are negative Past Medical History Past Medical History: COPD, Hyperlipidemia, Thyroid Disorder Additional Past Medical History / Comment(s): left breast cancer recent, thyroid cancer History of Any Multi-Drug Resistant Organisms: ESBL Year Discovered:: 01/04/21 ESBL E.coli MDRO Source:: Urine Past Surgical History: Back Surgery, Breast Surgery, Hysterectomy, Tubal Ligation Additional Past Surgical History / Comment(s): benign right breast biopsy, bilateral cataract surgery, malignant left needle localization in 12/08/19 Past Anesthesia/Blood Transfusion Reactions: Previous Problems w/ Anesthesia Additional Past Anesthesia/Blood Transfusion Reaction / Comm: pt states she woke up during 2 surgeries Past Psychological History: No Psychological Hx Reported Smoking Status: Current every day smoker Past Alcohol Use History: None Reported Additional Past Alcohol Use History / Comment(s): started smoking in 1968, smokes 4-6 cigarettes daily Past Drug Use History: Marijuana Additional Drug Use History / Comment(s): patient states she eats marijuana cookies - Past Family History Brother(s) Family Medical History: Cancer Additional Family Medical History / Comment(s): lung, liver and colon cancer Medications and Allergies Home Medications Medication Instructions Recorded Confirmed Type Fluticasone/Umeclidin/Vilanter 1 puff INHALATION RT-HS 08/24/19 01/15/21 History [Trelegy Ellipta 100-62.5-25] Montelukast [Singulair] 10 mg PO HS 08/24/19 01/15/21 History PARoxetine HCL [Paxil] 40 mg PO DAILY 08/24/19 01/15/21 History Acetaminophen [Tylenol Extra 1,000 mg PO HS 01/07/20 01/15/21 History Strength] Alendronate Sodium [Fosamax] 70 mg PO SA 01/05/21 01/15/21 History Cyanocobalamin (Vitamin B-12) 1,000 mcg PO 01/05/21 01/15/21 History [Vitamin B-12] Ergocalciferol (Vitamin D2) 1,250 mcg PO 01/05/21 01/15/21 History [Drisdol (50,000 Iu)] Levothyroxine Sodium [Synthroid] 75 mcg PO DAILY 01/05/21 01/15/21 History Metoprolol Succinate [Toprol XL] 25 mg PO DAILY 01/05/21 01/15/21 History Omeprazole [PriLOSEC] 40 mg PO DAILY 01/05/21 01/15/21 History diphenhydrAMINE [Benadryl] 25 mg PO HS 01/05/21 01/15/21 History lisinopriL [Zestril] 2.5 mg PO DAILY 01/05/21 01/15/21 History predniSONE See Taper PO DIRECTED 01/13/21 01/15/21 History Nicotine 14Mg/24Hr Patch [Habitrol] 1 patch TRANSDERM DAILY PRN 01/15/21 01/15/21 History Allergies Allergy/AdvReac Type Severity Reaction Status Date / Time codeine Allergy Swelling Verified 01/14/21 18:59 cyclobenzaprine Allergy Swelling Verified 01/14/21 18:59 [From Flexeril] meperidine [From Demerol] Allergy Swelling Verified 01/14/21 18:59 morphine Allergy Swelling Verified 01/14/21 18:59 Physical Exam Vitals: Vital Signs Temp Pulse Pulse Resp BP BP Pulse Ox 01/15/21 14:00 99.2 F 64 14 105/60 91 L 01/15/21 13:29 74 01/15/21 13:20 70 01/15/21 07:00 98.5 F 01/15/21 06:12 50 L 16 90/54 94 L 01/15/21 02:07 54 L 16 101/60 94 L 01/15/21 01:13 58 L 16 94/46 93 L 01/14/21 22:38 98.9 F 58 L 16 95/58 94 L 01/14/21 21:00 99.0 F 74 16 97/56 98 01/14/21 20:46 99.4 F 79 16 101/62 97 01/14/21 20:02 16 01/14/21 19:19 102.3 F H 01/14/21 18:59 98.4 F 78 16 98/55 98 Intake and Output 01/15/21 01/15/21 01/15/21 06:59 14:59 22:59 Other: Weight 56.699 kg GENERAL DESCRIPTION: An elderly female lying in bed, no distress. No tachypnea or accessory muscle of respiration use. HEENT: Shows Pallor , no scleral icterus. Oral mucous membrane is dry. No pharyngeal erythema or thrush NECK: Trachea central, no thyromegaly. LUNGS: Unlabored breathing. Clear to auscultation anteriorly. No wheeze or crackle. HEART: S1, S2, regular rate and rhythm. No loud murmur ABDOMEN: Soft, no tenderness , guarding or rigidity, no organomegaly EXTREMITIES: No edema of feet. SKIN: No rash, no masses palpable. NEUROLOGICAL: The patient is awake, alert, oriented x3, mood and affect normal. Results CBC & Chem 7: 01/14/21 19:25 01/14/21 19:25 Labs: Abnormal Lab Results - Last 24 Hours (Table) 01/14/21 01/14/21 Range/Units 19:25 19:25 WBC 12.0 H (3.8-10.6) k/uL RDW 16.6 H (11.5-15.5) % Neutrophils # (Manual) 8.28 H (1.3-7.7) k/uL Sodium 135 L (137-145) mmol/L Free T3 pg/mL 2.1 L (2.8-5.3) pg/ml Assessment and Plan Assessment: 1-patient with a positive blood culture with micrococcus species which could be more likely contaminant as the patient has no clinical disease to go along with it 2-patient did have with a fever source possible urinary versus abdominal in this patient with recent urine positive for ESBL E. coli (1) Bacteremia Current Visit: Yes Status: Acute Code(s): R78.81 - BACTEREMIA SNOMED Code(s): 2280095 (2) Sepsis Current Visit: No Status: Acute Code(s): A41.9 - SEPSIS, UNSPECIFIED ORGANISM SNOMED Code(s): 23479749 Plan: 1-we will obtain a urine culture 2-check a CT abdominal pelvis 3-we will start the patient on Invanz covering for possible abdominal source versus UTI and discontinue vancomycin We will follow on clinical condition and cultures to further adjust medication if needed Thank you for this consultation we will follow the patient along with you
[2021-01-15] MEDS: MONTELUKAST 10 MG TAB PO SCH (23:00)
[2021-01-15] MEDS: CYANOCOBALAMIN 500 MCG TAB PO SCH (23:00)
[2021-01-15] MEDS: ACETAMINOPHEN TAB 500 MG TAB PO SCH (23:01)
[2021-01-16 07:20] LABS: Anisocytosis Slight; HCT 31.2 % (34.0-46.0); HGB 10.3 gm/dL (11.4-16.0); MCH 31.2 pg (25.0-35.0); MCHC 32.9 g/dL (31.0-37.0); Mean Platelet Volume 7.7; Platelet Count 211 k/uL (150-450); RBC 3.29 m/uL (3.80-5.40); RDW 16.2 % (11.5-15.5); WBC 8.2 k/uL (3.8-10.6)
[2021-01-16 07:37] LABS: African American GFR (CKD) >90 (>60 ml/min/1.73 sqM); Anion Gap 6 mmol/L; Blood Urea Nitrogen 10 mg/dL (7-17); Calcium 8.7 mg/dL (8.4-10.2); Carbon Dioxide 28 mmol/L (22-30); Chloride 105 mmol/L (98-107); Glucose 103 mg/dL (74-99); Non-African American GFR(CKD) >90 (>60 ml/min/1.73 sqM); Potassium 4.1 mmol/L (3.5-5.1); Sodium 139 mmol/L (137-145)
[2021-01-16] MEDS: IPRATROPIUM 0.5 MG/2.5 ML NEBU INHALATION SCH ×4 (07:40→20:32)
[2021-01-16] MEDS: SYMBICORT 80-4.5 MCG INHALER INHALATION SCH ×2 (07:40→20:32)
[2021-01-16 08:12] LABS: C Reactive Protein 18.5 mg/dL (<1.0)
[2021-01-16] MEDS: ERTAPENEM 1 GM in SODIUM CHLORIDE 0.9% 50 ML IVPB SCH (08:32)
[2021-01-16] MEDS: PARoxetine 20 MG TAB PO SCH (08:33)
[2021-01-16] MEDS: PANTOPRAZOLE 40 MG TABLET PO SCH (08:33)
[2021-01-16] MEDS: LEVOTHYROXINE 75 MCG TAB PO SCH (08:33)
[2021-01-16] MEDS: SODIUM CHLORIDE 0.9% 1,000 ML IV SCH ×2 (08:34→20:32)
[2021-01-16] MEDS ORDERED: ENOXAPARIN 30 MG/0.3 ML SYRINGE SQ SCH (09:00)
--- NOTE | 2021-01-16 10:26 | CT ---
3 EXAMINATION TYPE: CT abdomen pelvis w con DATE OF EXAM: 01/16/2021 COMPARISON: None HISTORY: fever, generalized pain, nausea, diarrhea CT DLP: 672.4 mGycm CONTRAST: CT scan of the abdomen and pelvis is performed with Oral Contrast and with IV Contrast, patient injec [place] with 100 mL of Isovue 300. FINDINGS: LUNG BASES-: No visible nodule. Right lower lobe atelectasis or developing infiltrate. Correlate clin ically. LIVER/GB: No calcified gallstones. No space occupying hepatic lesion. Biliary tree is of normal ca liber. PANCREAS: No inflammation. No distinct mass. SPLEEN: No splenic enlargement. No lesion seen. ADRENALS: No nodule. No thickening. KIDNEYS/BLADDER: No hydronephrosis. No nephrolithiasis. No distinct renal mass. Urinary bladder g rossly unremarkable. BOWEL: Normal appendix. Normal bowel caliber. No inflammation. GENITAL ORGANS: No gross abnormality. LYMPH NODES: No greater than 1cm abdominal or pelvic lymph nodes are appreciated. AORTA: No significant abnormality. OSSEOUS STRUCTURES: No significant abnormality is seen. OTHER: No significant additional abnormality is seen. IMPRESSION: 1. No significant abnormality to account for the patient's symptoms although there is linear atelecta sis or developing infiltrate right lower lobe. Correlate clinically.
[2021-01-16 14:08] LABS: Appearance,Urine Clear (Clear); Bilirubin,Urine Negative (Negative); Blood,Urine Negative (Negative); Color,Urine Light Yellow; Glucose,Urine (UA) Negative (Negative); Ketones,Urine Negative (Negative); Leukocyte Esterase,Urine Negative (Negative); Nitrite,Urine Negative (Negative); PH, Urine 6.5 (5.0-8.0); Protein,Urine Negative (Negative); Specific Gravity,Urine 1.039 (1.001-1.035); Urobilinogen,Urine <2.0 mg/dL (<2.0)
--- NOTE | 2021-01-16 19:57 | PN ---
PROGRESS NOTE DATE OF SERVICE: 01/16/2021 REASON FOR FOLLOWUP: 1. Positive blood culture. 2. Fever. INTERVAL HISTORY: The patient is afebrile. The patient is feeling better. She is breathing comfortably. Denies any chest pain, shortness of breath or cough. No nausea, no vomiting. No abdominal pain, no diarrhea. PHYSICAL EXAMINATION: Blood pressure is 84/59 with pulse of 85, temperature 98.4. She is 94% on room air. General description is an elderly female lying in bed in no distress. Respiratory system: Unlabored breathing, decreased breath sounds in the base, no wheeze. Heart S1, S2. Regular rate and rhythm. Abdomen soft, no tenderness. LABS: Hemoglobin is 10.1, white count 8.2, BUN of 10, creatinine 0.61. Urine is negative. CT of abdomen and pelvis did not show any acute abnormality except some atelectasis lung base. DIAGNOSTIC IMPRESSION AND PLAN: 1. Patient admitted to the hospital with a positive blood culture with micrococcus species which is more likely contaminant. She did have repeat blood cultures on the , has been negative so far. 2. Patient did have fever for which the patient did have extensive workup including CT abdomen and pelvis, chest x-ray as well as urine has been negative. Currently no obvious focus of infection. We will consider short course of oral Augmentin on discharge and close outpatient followup. MMODL / IJN: [id number] / MOSES
[2021-01-16] MEDS: MONTELUKAST 10 MG TAB PO SCH (20:30)
[2021-01-16] MEDS: ACETAMINOPHEN TAB 500 MG TAB PO SCH (20:31)
[2021-01-16] MEDS: CYANOCOBALAMIN 500 MCG TAB PO SCH (20:31)
--- NOTE | 2021-01-16 22:36 | P.PN ---
Subjective Progress Note Date: 01/16/21 Principal diagnosis: bacteremia Pt continues to endorse some chills and sweats which she feels are improved. Tmax 99 degrees in the last 24 hours. She denies nausea, vomiting, cough. CT abd/pelvis today without significant abnormality. Objective - Vital Signs Vital signs: Vital Signs Temp 98.3 F 01/16/21 19:40 Pulse 70 01/16/21 20:43 Resp 18 01/16/21 14:00 BP 113/71 01/16/21 19:40 Pulse Ox 94 L 01/16/21 19:40 Intake & Output 01/16/21 01/16/21 01/17/21 06:59 18:59 06:59 Intake Total 2350 Balance 2350 Intake: Intake, IV Titration 2350 Amount Ertapenem 1 gm In Sodium 100 Chloride 0.9% 50 ml @ 100 mls/hr IVPB DAILY [facility] Rx #:[id number] Sodium Chloride 0.9% 1, 1000 000 ml @ 20 mls/hr IV . Q24H [facility] Rx#:[id number] Sodium Chloride 0.9% 1, 1000 000 ml @ 75 mls/hr IV . [id number] [facility] Rx#:[id number] Vancomycin 1,000 mg In 250 Sodium Chloride 0.9% 250 ml @ 125 mls/hr IVPB Q12H [facility] Rx#:[id number] Other: # Voids 2 - Exam Gen: well developed, well nourished, NAD CV: RRR, no murmur Lungs: normla effort, celar throughout Abd: soft, nontender, non distended - Labs CBC & Chem 7: 01/16/21 05:17 01/16/21 05:17 Labs: Abnormal Lab Results - Last 24 Hours (Table) 01/16/21 01/16/21 01/16/21 Range/Units 05:17 05:17 05:17 RBC 3.29 L (3.80-5.40) m/uL Hgb 10.3 L (11.4-16.0) gm/dL Hct 31.2 L (34.0-46.0) % RDW 16.2 H (11.5-15.5) % Glucose 103 H (74-99) mg/dL C-Reactive Protein 18.5 H (<1.0) mg/dL Procalcitonin 0.12 H (0.02-0.09) ng/mL Ur Specific [place] (1.001-1.035) 01/16/21 Range/Units 14:00 RBC (3.80-5.40) m/uL Hgb (11.4-16.0) gm/dL Hct (34.0-46.0) % RDW (11.5-15.5) % Glucose (74-99) mg/dL C-Reactive Protein (<1.0) mg/dL Procalcitonin (0.02-0.09) ng/mL Ur Specific [place] 1.039 H (1.001-1.035) Microbiology - Last 24 Hours (Table) 01/14/21 19:20 Blood Culture - Preliminary Blood No Growth after 48 hours 01/14/21 19:47 Blood Culture - Preliminary Blood No Growth after 48 hours Assessment and Plan Plan: ID following. Continue with invanz and await cultures. Continue remainder of home medications
[2021-01-17] MEDS: LEVOTHYROXINE 75 MCG TAB PO SCH (05:26)
[2021-01-17] MEDS: PANTOPRAZOLE 40 MG TABLET PO SCH (07:34)
[2021-01-17 07:40] VITALS: BP 108/65; RESP 16; TEMP 98.3
[2021-01-17] MEDS: ERTAPENEM 1 GM in SODIUM CHLORIDE 0.9% 50 ML IVPB SCH (07:53)
[2021-01-17 08:20] LABS: African American GFR (CKD) >90 (>60 ml/min/1.73 sqM); Non-African American GFR(CKD) >90 (>60 ml/min/1.73 sqM)
[2021-01-17] MEDS: PARoxetine 20 MG TAB PO SCH (08:55)
[2021-01-17] MEDS ORDERED: ENOXAPARIN 40 MG/0.4 ML SYRINGE SQ SCH (09:00)
[2021-01-17] MEDS: SYMBICORT 80-4.5 MCG INHALER INHALATION SCH (09:28)
[2021-01-17] MEDS: IPRATROPIUM 0.5 MG/2.5 ML NEBU INHALATION SCH ×2 (09:28→11:59)
[2021-01-17 09:52] VITALS: PULSE 64
--- NOTE | 2021-01-17 11:23 | P.DS ---
Providers Date of admission: 01/14/21 20:36 Expected date of discharge: 01/17/21 Attending physician: Adrian Bragg MD Consults: 01/14/21 20:35 Consult Physician Routine Consulting Provider: Zeinab Felix Consult Reason/Comments: bacteremia Do you want consulting provider notified?: Yes Primary care physician: Shanika Parr Hospital Course: Final Diagnoses: Bacteremia, micrococcus species suspected be contaminant, repeat cultures negative. Recent anaphylaxis with glossitis, resolved Recent UTI with E. coli, ESBL, suspected contaminant per ID Hypertension Hypothyroidism Hospital course: Patient admitted to the hospital with positive blood culture reporting micro-coccus species suspected to be contaminant as repeat blood cultures reporting negative. CT of abdomen and pelvis reported no significant abnormality Received IV antibiotics of Invanz as per infectious disease. Afebrile, normal WBC. Patient will be discharged home today in a stable condition with guarded prognosis pending finalizing cultures, final DC recommendations and clearance from ID. - Exam Gen: well developed, well nourished, NAD CV: RRR, no murmur Lungs: normla effort, clear throughout Abd: soft, nontender, non distended,+BS Microbiology 01/16/21 05:17 Blood Blood Culture - Preliminary No Growth after 24 hours 01/14/21 19:20 Blood Blood Culture - Preliminary No Growth after 48 hours 01/14/21 19:47 Blood Blood Culture - Preliminary No Growth after 48 hours The impression and plan of care has been dictated as directed. : I performed a history and examination of this patient, discussed the same with the dictator. I agree with the dictator's note ,documented as a scribe. Any additional findings or plans will be noted. Patient Condition at Discharge: Stable Plan - Discharge Summary Discharge Rx Participant: No New Discharge Prescriptions: Continue Montelukast [Singulair] 10 mg PO HS PARoxetine HCL [Paxil] 40 mg PO DAILY Fluticasone/Umeclidin/Vilanter [Trelegy Ellipta 100-62.5-25] 1 puff INHALATION RT-HS Acetaminophen [Tylenol Extra Strength] 1,000 mg PO HS Alendronate Sodium [Fosamax] 70 mg PO SA Cyanocobalamin (Vitamin B-12) [Vitamin B-12] 1,000 mcg PO HS Levothyroxine Sodium [Synthroid] 75 mcg PO DAILY Omeprazole [PriLOSEC] 40 mg PO DAILY diphenhydrAMINE [Benadryl] 25 mg PO HS Ergocalciferol (Vitamin D2) [Drisdol (50,000 Iu)] 1,250 mcg PO BUTTS Metoprolol Succinate [Toprol XL] 25 mg PO DAILY predniSONE See Taper PO DIRECTED Nicotine 14Mg/24Hr Patch [Habitrol] 1 patch TRANSDERM DAILY PRN PRN Reason: Nicotine Cravings Discontinued lisinopriL [Zestril] 2.5 mg PO DAILY Discharge Medication List Fluticasone/Umeclidin/Vilanter [Trelegy Ellipta 100-62.5-25] 1 puff INHALATION RT-HS 08/24/19 [History] Montelukast [Singulair] 10 mg PO HS 08/24/19 [History] PARoxetine HCL [Paxil] 40 mg PO DAILY 08/24/19 [History] Acetaminophen [Tylenol Extra Strength] 1,000 mg PO HS 01/07/20 [History] Alendronate Sodium [Fosamax] 70 mg PO SA 01/05/21 [History] Cyanocobalamin (Vitamin B-12) [Vitamin B-12] 1,000 mcg PO HS 01/05/21 [History] Ergocalciferol (Vitamin D2) [Drisdol (50,000 Iu)] 1,250 mcg PO BUTTS 01/05/21 [History] Levothyroxine Sodium [Synthroid] 75 mcg PO DAILY 01/05/21 [History] Metoprolol Succinate [Toprol XL] 25 mg PO DAILY 01/05/21 [History] Omeprazole [PriLOSEC] 40 mg PO DAILY 01/05/21 [History] diphenhydrAMINE [Benadryl] 25 mg PO HS 01/05/21 [History] predniSONE See Taper PO DIRECTED 01/13/21 [History] Nicotine 14Mg/24Hr Patch [Habitrol] 1 patch TRANSDERM DAILY PRN 01/15/21 [History] Follow up Appointment(s)/Referral(s): Shanika Parr DO [Primary Care Provider] - 3 Days Activity/Diet/Wound Care/Special Instructions: Antibiotics as per ID, pending finalizing culture
--- NOTE | 2021-01-18 17:55 | P.PN ---
Progress Note - Text Progress Note Date: 01/17/21 REASON FOR FOLLOWUP: 1. Positive blood culture. 2. Fever. INTERVAL HISTORY: The patient remains to be afebrile. The patient is feeling better. The patient is breathing comfortably. The patient denies any chest pain, shortness of breath or cough. No nausea, no vomiting. No abdominal pain, no diarrhea. PHYSICAL EXAMINATION: Blood pressure is 100/59 with pulse of 80, temperature 98.4. She is 94% on room air. General description is an elderly female lying in bed in no distress. Respiratory system: Unlabored breathing, decreased breath sounds in the base, no wheeze. Heart S1, S2. Regular rate and rhythm. Abdomen soft, no tenderness. LABS: Reviewed repeat culture negative DIAGNOSTIC IMPRESSION AND PLAN: 1. Patient admitted to the hospital with a positive blood culture with micrococcus species which is more likely contaminant. She did have repeat blood cultures on the , which came back negative no need for further workup 2. Patient did have fever for which the patient did have extensive workup including CT abdomen and pelvis, chest x-ray as well as urine has been negative. Currently no obvious focus of infection. We'll consider Augmentin 875 twice a day for a week and close outpatient follow-up Discuss with nurse practitioner for admitting team
[2021-01-21] MEDS ORDERED: ALENDRONATE SODIUM PO SCH (06:30)
== END 2021-01-17 12:14 | disposition home or self-care (01) | DRG 951 ==
LOC: EC 18:58 → 5NMEDONC 20:36 → 4SSUR 01-15 06:08
PROVIDERS: ADMIT Family Medicine; ATTEND Family Medicine
DX: Z03.89 Encounter for observation for other suspected diseases and conditions ruled out (principal); J44.9 Chronic obstructive pulmonary disease, unspecified; I95.9 Hypotension, unspecified; E03.9 Hypothyroidism, unspecified; Z20.822 Contact with and (suspected) exposure to COVID-19; R00.1 Bradycardia, unspecified; I10 Essential (primary) hypertension; E07.9 Disorder of thyroid, unspecified; E78.5 Hyperlipidemia, unspecified; F17.210 Nicotine dependence, cigarettes, uncomplicated; Z71.6 Tobacco abuse counseling; Z79.83 Long term (current) use of bisphosphonates; Z79.890 Hormone replacement therapy; Z79.51 Long term (current) use of inhaled steroids; Z79.899 Other long term (current) drug therapy; Z85.3 Personal history of malignant neoplasm of breast; Z85.850 Personal history of malignant neoplasm of thyroid; Z90.710 Acquired absence of both cervix and uterus; Z86.19 Personal history of other infectious and parasitic diseases; Z87.42 Personal history of other diseases of the female genital tract; Z98.51 Tubal ligation status; Z98.42 Cataract extraction status, left eye; Z98.41 Cataract extraction status, right eye; Z92.25 Personal history of immunosuppression therapy; Z98.890 Other specified postprocedural states; Z88.5 Allergy status to narcotic agent; Z88.8 Allergy status to other drugs, medicaments and biological substances; Z80.0 Family history of malignant neoplasm of digestive organs; Z80.1 Family history of malignant neoplasm of trachea, bronchus and lung
CPT/HCPCS: 36415; 70450; 71045; 71046; 72125; 74177; 80048; 80053; 81001; 81003; 82565; 83605; 84145; 84439; 84443; 84481; 84484; 85025; 85027; 85379; 85610; 85730; 86140; 87040; 87636; 93005; 94640; 96365; 96366; 99285

== ENCOUNTER → 2021-08-23 | Outpatient (CLI) | payer MEDICARE, OTHER ==
--- NOTE | 2021-08-23 11:56 | MM ---
Reason for exam: additional evaluation requested from prior study. Last mammogram was performed 1 year and 1 month ago. History: Patient is postmenopausal and has history of breast cancer at age 69. Family history of breast cancer in maternal aunt. MG discontinued stereo core LT of the left breast, January 25, 2020. Malignant MG pre op needle loc LT of the left breast, December 08, 2019. Benign MG stereo VAD BX LT of the left breast, September 11, 2019. Chemotherapy, 2019. Radiation therapy of the left breast, 2019. Benign cyst aspiration of the right breast. Benign excisional biopsy of the left breast. Indicated problem(s): pain in both breasts. Physical Findings: A clinical breast exam by your physician is recommended on an annual basis and results should be correlated with mammographic findings. MG 3D Diag Mammo W/Cad BRIANA Bilateral CC and MLO view(s) were taken. Prior study comparison: August 02, 2020, bilateral MG 3d diag mammo w/cad BRIANA. July 22, 2019, left breast MG 3d work up w/cad LT. The breast tissue is heterogeneously dense. This may lower the sensitivity of mammography. Stable benign calcifications. Stable post lumpectomy and radiation therapy changes left breast. These results were verbally communicated with the patient and result sheet given to the patient on 08/23/21. ASSESSMENT: Benign, BI-RAD 2 RECOMMENDATION: Follow-up diagnostic mammogram of both breasts in 1 year.
== END | disposition home or self-care (01) ==
LOC: RADMAMWWP 11:02
PROVIDERS: ATTEND Family Medicine
DX: Z08 Encounter for follow-up examination after completed treatment for malignant neoplasm (principal); Z85.3 Personal history of malignant neoplasm of breast
CPT/HCPCS: 77066; G0279; 77062

== ENCOUNTER 2021-12-10 19:48 | Emergency (ER) | payer MEDICARE, OTHER ==
[2021-12-10] MEDS ORDERED: PROPARACAINE 0.5% OPHTH DROPS 15 ML BTL LEFT EYE STA (19:58)
[2021-12-10] MEDS ORDERED: FLUORESCEIN STRIPS 1 MG STRIP LEFT EYE ONE (19:58)
[2021-12-10] MEDS ORDERED: ERYTHROMYCIN 5 MG/GM OPHTH OINT 3.5 GM TUBE LEFT EYE STA (19:59)
[2021-12-10 20:21] VITALS: BP 98/56; PULSE 55; RESP 16; TEMP 97.9
[2021-12-10] MEDS ORDERED: MOXIFLOXACIN HCL 0.5% DROPS 3 ML BTL LEFT EYE STA (20:45)
--- NOTE | 2021-12-10 20:54 | ED ---
Eye Problem HPI - General Chief complaint: Eye Problems Stated complaint: Left Eye Injury, Cat Scratch Time Seen by Provider: 12/10/21 20:30 Source: patient Mode of arrival: ambulatory Limitations: no limitations - History of Present Illness Initial comments: This is a pleasant 71-year-old female with a history of hyperthyroidism and is disease. 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 Patient states about 2 weeks ago her cat inadvertently scratched her left eye. She believes that she just got graduate the [employer]. She's been trying to doctorate at home with [id number] eyedrops. She states over the past 2 days the pain has become worse, the eyes had worsening irritation and she's got worse and blurred vision. No headache, no fever or chills, no changes in hearing, no sore throat or difficulty with speech, no neck pain, no chest pain or shortness of breath, no abdominal pain, no nausea or vomiting, no changes in urination or bowel movements, no numbness or tingling, no extremity pain, no skin rashes or lesions. MD chief complaint: eye pain, eye injury - Related Data Home Medications Medication Instructions Recorded Confirmed Fluticasone/Umeclidin/Vilanter 1 puff INHALATION RT-HS 08/24/19 01/15/21 [Trelegy Ellipta 100-62.5-25] Montelukast [Singulair] 10 mg PO HS 08/24/19 01/15/21 PARoxetine HCL [Paxil] 40 mg PO DAILY 08/24/19 01/15/21 Acetaminophen [Tylenol Extra 1,000 mg PO 01/07/20 01/15/21 Strength] Alendronate Sodium [Fosamax] 70 mg PO SA 01/05/21 01/15/21 Cyanocobalamin (Vitamin B-12) 1,000 mcg PO 01/05/21 01/15/21 [Vitamin B-12] Ergocalciferol (Vitamin D2) 1,250 mcg PO 01/05/21 01/15/21 [Drisdol (50,000 Iu)] Levothyroxine Sodium [Synthroid] 75 mcg PO DAILY 01/05/21 01/15/21 Metoprolol Succinate [Toprol XL] 25 mg PO DAILY 01/05/21 01/15/21 Omeprazole [PriLOSEC] 40 mg PO DAILY 01/05/21 01/15/21 diphenhydrAMINE [Benadryl] 25 mg PO HS 01/05/21 01/15/21 predniSONE See Taper PO DIRECTED 01/13/21 01/15/21 Nicotine 14Mg/24Hr Patch [Habitrol] 1 patch TRANSDERM DAILY PRN 01/15/21 01/15/21 Previous Rx's Medication Instructions Recorded Amoxicillin/Potassium Clav 1 tab PO BID 7 Days #14 tab 01/17/21 [Augmentin 875-125 Tablet] Allergies Allergy/AdvReac Type Severity Reaction Status Date / Time codeine Allergy Swelling Verified 12/10/21 20:20 cyclobenzaprine Allergy Swelling Verified 12/10/21 20:20 [From Flexeril] meperidine [From Demerol] Allergy Swelling Verified 12/10/21 20:20 morphine Allergy Swelling Verified 12/10/21 20:20 Review of Systems ROS Statement: Those systems with pertinent positive or pertinent negative responses have been documented in the HPI. ROS Other: All systems not noted in ROS Statement are negative. Past Medical History Past Medical History: COPD, Hyperlipidemia, Thyroid Disorder Additional Past Medical History / Comment(s): left breast cancer recent, thyroid cancer History of Any Multi-Drug Resistant Organisms: ESBL Date of last positivie culture/infection: 01/04/21 ESBL E.coli MDRO Source:: Urine Past Surgical History: Back Surgery, Breast Surgery, Hysterectomy, Tubal Ligation Additional Past Surgical History / Comment(s): benign right breast biopsy, bilateral cataract surgery, malignant left needle localization in 12/08/19 Past Anesthesia/Blood Transfusion Reactions: Previous Problems w/ Anesthesia Additional Past Anesthesia/Blood Transfusion Reaction / Comment(s): pt states she woke up during 2 surgeries Past Psychological History: No Psychological Hx Reported Smoking Status: Current every day smoker Past Alcohol Use History: None Reported Past Drug Use History: Marijuana - Past Family History Brother(s) Family Medical History: Cancer Additional Family Medical History / Comment(s): lung, liver and colon cancer General Exam Limitations: no limitations General appearance: alert, in distress Head exam: Present: atraumatic, normocephalic, normal inspection Eye exam: Present: PERRL, EOMI, conjunctival injection (Left). Absent: scleral icterus, periorbital swelling Pupils: Present: other (Slit-lamp examination reveals uptake at the 5 o'clock position. Patient has what appears to be a corneal ulceration forming. No evidence of hypopyon or hyphema.) Expanded Eyelids: Normal Inspection: Left, Erythema: Right Pupils: Regular, Round: Bilateral, Reactive: Bilateral Sclera/Conjunctival: Normal Inspection: Left, Injection: Right, Exudate: Right Anterior chamber: Normal Inspection: Bilateral Posterior chamber: Deferred: Bilateral IOP (R) in mmH IOP (L) in mmH IOP measured with: other (Tonometer, patient's visual acuity affected on the left. Patient can see but it is blurry. Cannot tell how many fingers I'm holding up in front of her eyes at 18 inches away.) ENT exam: Present: normal exam, mucous membranes moist Neck exam: Present: normal inspection. Absent: tenderness, meningismus, lymphadenopathy Respiratory exam: Present: normal lung sounds bilaterally. Absent: respiratory distress, wheezes, rales, rhonchi, stridor Cardiovascular Exam: Present: regular rate, normal rhythm, normal heart sounds. Absent: systolic murmur, diastolic murmur, rubs, gallop, clicks GI/Abdominal exam: Present: soft, normal bowel sounds. Absent: distended, tenderness, guarding, rebound, rigid Extremities exam: Present: normal inspection, full ROM, normal capillary refill. Absent: tenderness, pedal edema, joint swelling, calf tenderness Back exam: Present: normal inspection Neurological exam: Present: alert, oriented X3, CN II-XII intact Psychiatric exam: Present: normal affect, normal mood Skin exam: Present: warm, dry, intact, normal color. Absent: rash Course Vital Signs 12/10/21 20:17 Temperature 97.9 F Pulse Rate 55 L Respiratory 16 Rate Blood Pressure 98/56 O2 Sat by Pulse 97 Oximetry - Consultations Consultation #1: Call placed for ophthalmology, patient sees Dr. Delatorre. Consultation #2: Patient presents to the emergency department with a corneal abnormality secondary to a cat scratch which occurred 2 weeks ago. Patient appears to have developed a corneal ulceration. I did discuss this with the patient's own deputy register of deeds, Dr. Delatorre. He agrees to see the patient tomorrow at 1:30 PM. Were going to use moxifloxacin one drop every 30 minutes for 6 hours then every hour until she sees Dr. Delatorre. Treatment plan discussed with the patient in detail. She concurs with this pl an. All questions answered. Patient was told to return to the ER for any signs or symptoms worsen. Told to return immediately if any other problems arise. All questions answered. Moni tment plan discussed. Patient in agreement Every effort has been made to ensure accuracy of this dictation. However, due to the limitations of electronic medical records and dictation devices, errors in charting still occur. Motor Vehicle Emissions Inspector, Dr. Viera Procedures - Procedures Initial comment: Proparacaine instilled. Eye was stained. Patient has uptake at the 5 o'clock position on slit-lamp examination. Consistent with corneal ulcer. No hyphema or hypopyon noted. No foreign body. Disposition Clinical Impression: Corneal ulcer of right eye Narrative: Corneal ulceration secondary to a scratch of the cornea from a cat Disposition: HOME SELF-CARE Condition: Good Instructions (If sedation given, give patient instructions): Corneal Ulcer (ED) Additional Instructions: Use the antibiotic drops, one drop every 30 minutes for 6 hours, then 1 drop every hour until follow-up tomorrow at 1:30 PM with the eye doctor. Use [id number] Tylenol 500 mg every 4-6 hours as needed for pain control. Is patient prescribed a controlled substance at d/c from ED?: No Referrals: Darin Delatorre DO [Doctor of Osteopathic Medicine] - 12/11/21 1:30 pm Time of Disposition: 21:31
== END 2021-12-10 21:49 | disposition home or self-care (01) ==
LOC: EC 19:48
DX: H16.002 Unspecified corneal ulcer, left eye (principal); F17.200 Nicotine dependence, unspecified, uncomplicated; J45.909 Unspecified asthma, uncomplicated; E78.5 Hyperlipidemia, unspecified; E07.9 Disorder of thyroid, unspecified; Z88.5 Allergy status to narcotic agent; Z88.6 Allergy status to analgesic agent; Z88.1 Allergy status to other antibiotic agents; Z88.8 Allergy status to other drugs, medicaments and biological substances; Z79.899 Other long term (current) drug therapy; Z79.890 Hormone replacement therapy; Z79.51 Long term (current) use of inhaled steroids
CPT/HCPCS: 99282

== ENCOUNTER → 2021-12-15 | Outpatient (CLI) | payer MEDICARE, OTHER ==
--- NOTE | 2021-12-15 16:11 | CTL ---
EXAMINATION TYPE: CT Low Dose Lung DATE OF EXAM ORDERED: 12/15/2021 HISTORY: History of tobacco use.. Lung cancer screening CT DLP: [address] CTDI: 2.2 mGy Automated exposure control for dose reduction was used. SCREENING VISIT: 12/15/2021 COMPARISON: None TECHNIQUE: Low dose computed tomography scan was performed through the chest at 1 mm thick sections a nd reconstructed images in multiple planes at 1 mm and [address] DIAGNOSTIC QUALITY: Satisfactory FINDINGS: LUNG NODULES: Right upper lobe, 5 mm (image 55). Right middle lobe, 6 mm (image 164). Right lower lobe, peripheral 6 mm, (image 168). Left lower lobe peripheral area of thickening measuring 6 mm (image 24). LUNGS: COPD: Centrilobular emphysema changes are present most proximal lung apices. Severity: Moderate to se cheri Fibrosis: Severity: Mild and most pronounced in the right lung base near the elevated right diaphragm .. Lymph nodes: Other findings: RIGHT PLEURAL SPACE: Effusion: None Calcification: None Thickening: None Pneumothorax: None LEFT PLEURAL SPACE: Effusion: None Calcification: None Thickening: None Pneumothorax: None HEART: Heart Size: Normal for size. Coronary Calcification: Moderate atherosclerosis of the coronary arterial vasculature. Pericardial Effusion: None OTHER FINDINGS: Upper abdomen: There is an elevated right diaphragm. Bony thorax: Multilevel disc degeneration changes seen throughout the spine. Supraclavicular region: None Other: Biopsy clip seen within the left breast. IMPRESSION: 1. Scattered subcentimeter pulmonary nodules. 2. Moderate to severe COPD changes. CT LUNG RAD AND CT CHEST RECOMMENDATION: Lung-Rad 2 Benign Appearance or Behavior: Continue annual sc reening with LDCT in 12 months. S Modifier (other clinically significant findings): Moderate coronary artery atherosclerosis.
== END | disposition home or self-care (01) ==
LOC: RADCTMAIN 15:13
PROVIDERS: ATTEND Internal Medicine Hematology & Oncology
DX: Z12.2 Encounter for screening for malignant neoplasm of respiratory organs (principal); R91.1 Solitary pulmonary nodule; Z87.891 Personal history of nicotine dependence
CPT/HCPCS: 71271

== ENCOUNTER → 2022-09-12 | Outpatient (CLI) | payer MEDICARE, OTHER ==
--- NOTE | 2022-09-12 09:52 | CT ---
EXAMINATION TYPE: CT chest w con DATE OF EXAM: 09/12/2022 COMPARISON: 12/15/2021 HISTORY: Left lower rib pain. CT DLP: 181.7 mGycm Automated exposure control for dose reduction was used. TECHNIQUE: CT scan of the chest is performed with IV Contrast, patient injected with 70ml mL of Isovue 300. MIP Images are created on CT scanner and reviewed. 3D reconstructed images are created on an independent workstation and reviewed. FINDINGS: LUNGS: There is a moderate diffuse centrilobular emphysema. There is a stable 5 mm nodule right upper lobe subpleural. Within the right middle lobe axial image 32 there is a 6 mm nodule retrospectively stable. There is i nterlobular septal thickening at the right base posteriorly suggestive of interstitial lung disease s uch as pulmonary fibrosis UIP type. No pleural effusion or pneumothorax. No focal pneumonia. MEDIASTINUM: There are no greater than 1 cm hilar or mediastinal lymph nodes. No pericardial effusi on is seen. Coronary artery calcification noted. Aorta of normal caliber with atherosclerotic change s. Heart size normal. Pericardial lipomatosis incidentally noted. OTHER: Along the anterolateral left fifth rib there is atherosclerotic change to the rib with findin gs suggestive of a healing fracture. Correlate for recent trauma. Surgical clips in the left breast. IMPRESSION: 1. There is sclerosis involving the anterior left fifth rib with the findings compatible with a heali ng fracture. Correlate for recent trauma to exclude pathologic fracture. No definite soft tissue comp onent. 2. Diffuse emphysematous changes with stable right-sided pulmonary nodules unchanged from prior CT sc an 12/15/2021
== END | disposition home or self-care (01) ==
LOC: RADCTMAIN 08:26
PROVIDERS: ATTEND Internal Medicine Hematology & Oncology
DX: C50.512 Malignant neoplasm of lower-outer quadrant of left female breast (principal); I42.9 Cardiomyopathy, unspecified; E03.9 Hypothyroidism, unspecified; J43.9 Emphysema, unspecified; M89.8X8 Other specified disorders of bone, other site; R91.8 Other nonspecific abnormal finding of lung field; R06.00 Dyspnea, unspecified
CPT/HCPCS: 82565; 84520; 71260; 36415; Q9967

== ENCOUNTER → 2022-09-20 | Day surgery (SDC) | payer MEDICARE, OTHER ==
[2022-09-20 07:29] VITALS: RESP 16
[2022-09-20 09:29] VITALS: BP 139/66; PULSE 51; TEMP 98.1
--- NOTE | 2022-09-20 15:06 | P.OP ---
Date of Procedure: 09/20/22 Preoperative Diagnosis: Microcalcifications of concern left breast Postoperative Diagnosis: Same Procedure(s) Performed: Stereotactic core needle biopsy left breast Anesthesia: local Surgeon: Carito Carranza Pathology: other (left breast tissue with microcalcifications of concern) Condition: stable Disposition: same day Indications for Procedure: abnormal microcalcifications left breast Operative Findings: Radiographic specimen reveals microcalcifications of concern Description of Procedure: The patient is a 72-year-old white female who was noted to have microcalcifications of concern in the mid inferior/6 o'clock position of the left breast. Stereotactic core biopsy was recommended. The risks and benefits of the procedure were discussed with the patient and she wished to proceed. The patient was taken to the stereotactic core biopsy room. She was positioned prone on the lo-rad table. A medial to lateral approach was utilized. A hot header operator film was obtained. The lesion of concern was identified. The lesion was targeted. The breast was prepped using Betadine. 20 mL of 1% lidocaine were used to anesthetize the area of concern. A 9-gauge vacuum-assisted core rotating biopsy needle was driven to the correct coordinates. A prefire film was obtained. The needle was noted to be in the correct location. The needle was fired. The post fire film revealed the needle to be in the correct location. 13 core biopsy specimens were obtained. Radiograph of the specimen revealed the area of concern to be adequately sampled. A secure trino top hat clip was left. The clip was noted to be in the correct location. The patient tolerated the procedure in stable condition. The specimen was sent to pathology. The patient will follow-up with Dr. Pascal next week.
== END ==
LOC: RADMAMWWP 07:02
PROVIDERS: ATTEND Surgery
DX: N64.1 Fat necrosis of breast (principal)
CPT/HCPCS: 88305; 19081; A4648; J2001

== ENCOUNTER → 2022-09-27 | Outpatient (CLI) | payer MEDICARE, OTHER ==
[2022-09-27 12:32] VITALS: BP 105/58; PULSE 56; RESP 18; TEMP 98.2
--- NOTE | 2022-09-27 12:54 | P.PN ---
Subjective Progress Note Date: 09/27/22 Principal diagnosis: scar with fat necrosis left breast Lorie is a 72-year-old white female status post stereotactic core biopsy of the left breast [place] [id number]. Her pathology revealed scar with fat necrosis. She tolerated the procedure without difficulty. Objective - Vital Signs Vital signs: Vital Signs Temp 98.2 F 09/27/22 12:29 Pulse 56 L 09/27/22 12:29 Resp 18 09/27/22 12:29 BP 105/58 09/27/22 12:29 Pulse Ox 94 L 09/27/22 12:29 FiO2 Intake & Output 09/26/22 09/27/22 09/27/22 18:59 06:59 18:59 Weight 58.513 kg - Constitutional General appearance: Present: cooperative - EENT Eyes: Present: EOMI ENT: Present: hearing grossly normal - Neck Neck: Present: normal ROM - Respiratory Respiratory: bilateral: CTA - Cardiovascular Rhythm: regular Heart sounds: normal: S1, S2 - Integumentary Integumentary Comment(s): biopsy site left breast clean and dry Assessment and Plan Assessment: Impression: Patient status post left breast are detected core biopsy benign concordant scar with right fat necrosis Plan: Repeat left breast mammogram in 6 months with physician exam at that time CC: Dr. Bragg
== END ==
LOC: WWCWWP 11:50
PROVIDERS: ATTEND Surgery
DX: Z85.3 Personal history of malignant neoplasm of breast (principal); Z88.5 Allergy status to narcotic agent; Z88.8 Allergy status to other drugs, medicaments and biological substances; F17.200 Nicotine dependence, unspecified, uncomplicated

== ENCOUNTER 2023-01-27 20:18 | Emergency (ER) | payer MEDICARE, OTHER ==
[2023-01-27 20:26] VITALS: RESP 16
--- NOTE | 2023-01-27 21:33 | XR ---
EXAMINATION TYPE: XR chest 2V DATE OF EXAM: 01/27/2023 9:28 PM COMPARISON: Chest radiographs from 01/14/2021 TECHNIQUE: XR chest 2V Frontal and lateral views of the chest. CLINICAL INDICATION:Female, 73 years old with history of cough; FINDINGS: Lungs/Pleura: There is no evidence of pleural effusion, focal consolidation, or pneumothorax. Pulmonary vascularity: Unremarkable. Heart/mediastinum: Cardiomediastinal silhouette is unremarkable. Musculoskeletal: No acute osseous pathology. IMPRESSION: No acute cardiopulmonary disease/process.
[2023-01-27] MEDS ORDERED: ACETAMINOPHEN TAB 325 MG TAB PO STA (21:58)
--- NOTE | 2023-01-27 21:58 | ED ---
General Adult HPI - General Chief complaint: ENT Stated complaint: difficulty swallowing, throat pain Time Seen by Provider: 01/27/23 20:34 Source: patient, RN notes reviewed Mode of arrival: ambulatory Limitations: no limitations - History of Present Illness Initial comments: 73-year-old female with no significant past medical history presents to the emergency department with a chief complaint of sore throat. She reports worsening sore throat, cough, nasal congestion over the last week. She has not taken anything for her symptoms. She denies any recent sick contacts., Chills, chest pain, shortness of breath, productive cough. She is up to date on her vaccinations. - Related Data Home Medications Medication Instructions Recorded Confirmed Fluticasone/Umeclidin/Vilanter 1 puff INHALATION RT-HS 08/24/19 09/27/22 [Trelegy Ellipta 100-62.5-25] Montelukast [Singulair] 10 mg PO HS 08/24/19 09/27/22 PARoxetine HCL [Paxil] 40 mg PO DAILY 08/24/19 09/27/22 Acetaminophen [Tylenol Extra 1,000 mg PO HS 01/07/20 09/27/22 Strength] Cyanocobalamin (Vitamin B-12) 1,000 mcg PO HS 01/05/21 09/27/22 [Vitamin B-12] Ergocalciferol (Vitamin D2) 1,250 mcg PO BUTTS 01/05/21 09/27/22 [Drisdol (50,000 Iu)] Levothyroxine Sodium [Synthroid] 50 mcg PO DAILY 01/05/21 09/27/22 Metoprolol Succinate [Toprol XL] 25 mg PO DAILY 01/05/21 09/27/22 Omeprazole [PriLOSEC] 40 mg PO DAILY 01/05/21 09/27/22 diphenhydrAMINE [Benadryl] 25 mg PO HS 01/05/21 09/27/22 Allergies Allergy/AdvReac Type Severity Reaction Status Date / Time codeine Allergy Swelling Verified 09/27/22 12:28 cyclobenzaprine Allergy Swelling Verified 09/27/22 12:28 [From Flexeril] meperidine [From Demerol] Allergy Swelling Verified 09/27/22 12:28 morphine Allergy Swelling Verified 09/27/22 12:28 Review of Systems ROS Statement: Those systems with pertinent positive or pertinent negative responses have been documented in the HPI. ROS Other: All systems not noted in ROS Statement are negative. Past Medical History Past Medical History: COPD, Thyroid Disorder Additional Past Medical History / Comment(s): left breast cancer recent, thyroid cancer History of Any Multi-Drug Resistant Organisms: ESBL Date of last positivie culture/infection: 01/04/21 ESBL E.coli MDRO Source:: Urine Past Surgical History: Back Surgery, Breast Surgery, Hysterectomy, Tubal Ligation Additional Past Surgical History / Comment(s): benign right breast biopsy, bilateral cataract surgery, malignant left needle localization in 12/08/19 Past Anesthesia/Blood Transfusion Reactions: Previous Problems w/ Anesthesia Additional Past Anesthesia/Blood Transfusion Reaction / Comment(s): pt states she woke up during 2 surgeries Past Psychological History: Depression Smoking Status: Current every day smoker Past Alcohol Use History: None Reported Past Drug Use History: Marijuana - Past Family History Brother(s) Family Medical History: Cancer Additional Family Medical History / Comment(s): lung, liver and colon cancer General Exam - General Exam Comments Initial Comments: General: Alert, in no acute distress Head: atraumatic normocephalic. Eyes PERRL, EOMI intact, mucous membranes moist Respiratory: Lungs clear to auscultation bilaterally Cardiovascular: Heart rate regular rate and rhythm Abdominal: Soft without guarding or rebound Extremities: Normal inspection with full range of motion and normal capillary refill Neuroogic: alert and oriented 3, CN II-XII intact, able to ambulate with steady gait Skin: warm dry and intact with normal color Limitations: no limitations Course Vital Signs 01/27/23 01/27/23 20:24 22:48 Temperature 98 F 98.5 F Pulse Rate 68 60 Respiratory 16 16 Rate Blood Pressure 103/68 92/57 O2 Sat by Pulse 98 94 L Oximetry Medical Decision Making - Medical Decision Making Was pt. sent in by a medical professional or institution (, PA, DETACHER, urgent care, hospital, or halfway...) When possible be specific @ -[No] Did you speak to anyone other than the patient for history (EMS, parent, family, police, friend...)? What history was obtained from this source @ -[No] Did you review nursing and triage notes (agree or disagree)? Why? @ -[I reviewed and agree with nursing and triage notes] Were old charts reviewed (outside hosp., previous admission, EMS record, old EKG, old radiological studies, urgent care reports/EKG's, halfway records)? Report findings @ -[No old charts were reviewed] Differential Diagnosis (chest pain, altered mental status, abdominal pain women, abdominal pain men, vaginal bleeding, weakness, fever, dyspnea, syncope, headache, dizziness, GI bleed, back pain, seizure, CVA, palpatations, mental health, musculoskeletal)? @ -[not applicable] EKG interpreted by me (3pts min.). @ -[As above] X-rays interpreted by me (1pt min.). @ -[None done] CT interpreted by me (1pt min.). @ -[None done] U/S interpreted by me (1pt. min.). @ -[None done] What testing was considered but not performed or refused? (CT, X-rays, U/S, labs)? Why? @ -[None] What meds were considered but not given or refused? Why? @ -[None] Did you discuss the management of the patient with other professionals (professionals i.e. , PA, DETACHER, lab, RT, psych nurse, social services assistant, sales agent protective service, teacher, retail loss prevention officer, high risk case manager)? Give summary @ -[No] Was smoking cessation discussed for >3mins.? @ -[No] Was critical care preformed (if so, how long)? @ -[No] Were there social determinants of health that impacted care today? How? (Homelessness, low income, unemployed, alcoholism, drug addiction, transportation, low edu. Level, literacy, decrease access to med. care, detention, rehab)? @ -[No] Was there de-escalation of care discussed even if they declined (Discuss DNR or withdrawal of care, Hospice)? DNR status @ -[No] What co-morbidities impacted this encounter? (DM, HTN, Smoking, COPD, CAD, Cancer, CVA, ARF, Chemo, Hep., AIDS, mental health diagnosis, sleep apnea, morbid obesity)? @ -[None] Was patient admitted / discharged? Hospital course, mention meds given and route, prescriptions, significant lab abnormalities, going to OR and other pertinent info. @ -Discharged. This is a pleasant 73-year-old female presents to the emergency department with a chief complaint of cough/sore throat. Patient had a thorough history and physical exam performed unremarkable. Heart rate regular rate and rhythm, lungs clear to auscultation bilaterally, abdomen soft nontender. Patient vital signs stable. Patient had lab work and imaging performed in the emergency department with essentially unremarkable. I discussed results in detail the patient verbalized understanding and all questions were addressed. She was given a dose of Tylenol was symptomatically relief in the emergency department. She is agreeable with the plan for discharge home at this time with strict return precautions. Recommend close follow-up with PCP in 1-2 days. Case discussed with PEPE Sheppard who agrees with plan of care Undiagnosed new problem with uncertain prognosis? @ -[No] Drug Therapy requiring intensive monitoring for toxicity (Heparin, Nitro, Insulin, Cardizem)? @ -[No] Were any procedures done? @ -[No] Diagnosis/symptom? @ -Sore throat Acute, or Chronic, or Acute on Chronic? @ -Acute Uncomplicated (without systemic symptoms) or Complicated (systemic symptoms)? @ -Uncomplicated Side effects of treatment? @ -[No] Exacerbation, Progression, or Severe Exacerbation? @ -[No] Poses a threat to life or bodily function? How? (Chest pain, USA, PA, pneumonia, PE, COPD, DKA, ARF, appy, cholecystitis, CVA, Diverticulitis, Homicidal, Suicidal, threat to staff... and all critical care pts) @ -Low likelihood - Lab Data Lab Results 01/27/23 01/27/23 Range/Units 21:14 21:14 Influenza Type A (PCR) Not Detected (Not Detectd) Influenza Type B (PCR) Not Detected (Not Detectd) RSV (PCR) Not Detected (Not Detectd) SARS-CoV-2 (PCR) Not Detected (Not Detectd) Group A Strep (PCR) NOT DETECTED (Not Detectd) Disposition Clinical Impression: Sore throat Disposition: HOME SELF-CARE Condition: Stable Additional Instructions: Please return to the nearest emergency department symptoms worsen or persist Is patient prescribed a controlled substance at d/c from ED?: No Referrals: Adrian Bragg MD [Primary Care Provider] - 1-2 days Time of Disposition: 22:35
[2023-01-27 22:49] VITALS: BP 92/57; PULSE 60; TEMP 98.5
== END 2023-01-27 22:49 | disposition home or self-care (01) ==
LOC: EC 20:18
DX: J02.9 Acute pharyngitis, unspecified (principal); J44.9 Chronic obstructive pulmonary disease, unspecified; E07.9 Disorder of thyroid, unspecified; F32.A Depression, unspecified; F17.200 Nicotine dependence, unspecified, uncomplicated; F12.90 Cannabis use, unspecified, uncomplicated; Z88.5 Allergy status to narcotic agent; Z88.8 Allergy status to other drugs, medicaments and biological substances; Z79.890 Hormone replacement therapy; Z79.899 Other long term (current) drug therapy; Z20.822 Contact with and (suspected) exposure to COVID-19
CPT/HCPCS: 71046; 87636; 87651; 99283

== ENCOUNTER 2023-03-01 12:04 | Emergency (ER) | payer MEDICARE, OTHER ==
[2023-03-01 12:22] VITALS: TEMP 98.3
[2023-03-01] MEDS ORDERED: KETOROLAC 15 MG/ML 1 ML VIAL IVP STA (12:34)
--- NOTE | 2023-03-01 12:37 | ED ---
General Adult HPI - General Chief complaint: Fall Stated complaint: fall Time Seen by Provider: 03/01/23 12:20 Source: patient, family, RN notes reviewed, old records reviewed Mode of arrival: wheelchair Limitations: no limitations - History of Present Illness Initial comments: This is a 73-year-old female presents emergency department stating that she tripped and fell last night and hurt her right knee. Patient states is a little bit of swelling to the medial aspect of the inferior part of the knee. Patient states she also bumped her nose but the nose is not tender to this time. Patient denies hitting her head patient denies any neck pain patient denies any headache patient denies numbness weakness. Patient denies any other extremity pain. Patient denies back pain patient denies any chest pain. Patient states moving the knee is painful but she does have full range of motion. - Related Data Home Medications Medication Instructions Recorded Confirmed Fluticasone/Umeclidin/Vilanter 1 puff INHALATION RT-HS 08/24/19 09/27/22 [Emiliano Ellipta 100-62.5-25] Montelukast [Singulair] 10 mg PO HS 08/24/19 09/27/22 PARoxetine HCL [Paxil] 40 mg PO DAILY 08/24/19 09/27/22 Acetaminophen [Tylenol Extra 1,000 mg PO HS 01/07/20 09/27/22 Strength] Cyanocobalamin (Vitamin B-12) 1,000 mcg PO HS 01/05/21 09/27/22 [Vitamin B-12] Ergocalciferol (Vitamin D2) 1,250 mcg PO BUTTS 01/05/21 09/27/22 [Drisdol (50,000 Iu)] Levothyroxine Sodium [Synthroid] 50 mcg PO DAILY 01/05/21 09/27/22 Metoprolol Succinate [Toprol XL] 25 mg PO DAILY 01/05/21 09/27/22 Omeprazole [PriLOSEC] 40 mg PO DAILY 01/05/21 09/27/22 diphenhydrAMINE [Benadryl] 25 mg PO HS 01/05/21 09/27/22 Previous Rx's Medication Instructions Recorded Ibuprofen [Motrin] 600 mg PO Q6HR PRN #20 tab 03/01/23 Allergies Allergy/AdvReac Type Severity Reaction Status Date / Time codeine Allergy Swelling Verified 03/01/23 12:22 cyclobenzaprine Allergy Swelling Verified 03/01/23 12:22 [From Flexeril] meperidine [From Demerol] Allergy Swelling Verified 03/01/23 12:22 morphine Allergy Swelling Verified 03/01/23 12:22 Review of Systems ROS Statement: Those systems with pertinent positive or pertinent negative responses have been documented in the HPI. ROS Other: All systems not noted in ROS Statement are negative. Past Medical History Past Medical History: COPD, Thyroid Disorder Additional Past Medical History / Comment(s): left breast cancer recent, thyroid cancer History of Any Multi-Drug Resistant Organisms: ESBL Date of last positivie culture/infection: 01/04/21 ESBL E.coli MDRO Source:: Urine Past Surgical History: Back Surgery, Breast Surgery, Hysterectomy, Tubal Ligation Additional Past Surgical History / Comment(s): benign right breast biopsy, bilateral cataract surgery, malignant left needle localization in 12/08/19 Past Anesthesia/Blood Transfusion Reactions: Previous Problems w/ Anesthesia Additional Past Anesthesia/Blood Transfusion Reaction / Comment(s): pt states she woke up during 2 surgeries Past Psychological History: Depression Smoking Status: Current every day smoker Past Alcohol Use History: None Reported Past Drug Use History: Marijuana - Past Family History Brother(s) Family Medical History: Cancer Additional Family Medical History / Comment(s): lung, liver and colon cancer General Exam - General Exam Comments Initial Comments: GENERAL: Patient is well-developed and well-nourished. Patient is nontoxic and well- hydrated and is in mild distress. ENT: Neck is soft and supple. No significant lymphadenopathy is noted. Oropharynx is clear. Moist mucous membranes. Neck has full range of motion without eliciting any pain. Patient only has a slight area of contusion on the nose but the nasal bone is nontender EYES: The sclera were anicteric and conjunctiva were pink and moist. Extraocular movements were intact and pupils were equal round and reactive to light. Eyelids were unremarkable. PULMONARY: Unlabored respirations. Good breath sounds bilaterally. No audible rales rhonchi or wheezing was noted. CARDIOVASCULAR: There is a regular rate and rhythm without any murmurs gallops or rubs. ABDOMEN: Soft and nontender with normal bowel sounds. SKIN: Skin is clear with no lesions or rashes and otherwise unremarkable. NEUROLOGIC: Patient is alert and oriented x3. Cranial nerves II through XII are grossly intact. Motor and sensory are also intact. Normal speech, volume and content. Symmetrical smile. MUSCULOSKELETAL: There is no ligament laxity. Patient does have some swelling and contusion to the inferior medial aspect of the knee there is no tenderness the kneecap LYMPHATICS: No significant lymphadenopathy is noted PSYCHIATRIC: Normal psychiatric evaluation. Limitations: no limitations Course Vital Signs 03/01/23 03/01/23 03/01/23 12:19 12:36 13:55 Temperature 98.3 F Pulse Rate 62 57 L 56 L Respiratory 20 18 18 Rate Blood Pressure 88/54 108/58 116/80 O2 Sat by Pulse 99 95 98 Oximetry Medical Decision Making - Medical Decision Making Was pt. sent in by a medical professional or institution (, LOREE, NUT SORTER OPERATOR, urgent care, hospital, or [facility]...) When possible be specific @ -No Did you speak to anyone other than the patient for history (EMS, parent, family, police, friend...)? What history was obtained from this source @ -No Did you review nursing and triage notes (agree or disagree)? Why? @ -I reviewed and agree with nursing and triage notes Were old charts reviewed (outside hosp., previous admission, EMS record, old EKG, old radiological studies, urgent care reports/EKG's, [facility] records)? Report findings @ -No old charts were reviewed Differential Diagnosis (chest pain, altered mental status, abdominal pain women, abdominal pain men, vaginal bleeding, weakness, fever, dyspnea, syncope, headache, dizziness, GI bleed, back pain, seizure, CVA, palpatations, mental health, musculoskeletal)? @ -Differential Musculoskeletal Muscular strain, contusion, ligament sprain, fracture, arthritis, septic arthritis, bursitis, cellulitis, muscle spasm, nerve compression, DVT, arterial occlusion, herpes zoster, electrolyte abnormality, tumor.... This is not meant to be in all inclusive list EKG interpreted by me (3pts min.). @ -As above X-rays interpreted by me (1pt min.). @ - x-ray of the right knee showed no acute abnormality except for a small effusion CT interpreted by me (1pt min.). @ -None done U/S interpreted by me (1pt. min.). @ -None done What testing was considered but not performed or refused? (CT, X-rays, U/S, labs)? Why? @ -None What meds were considered but not given or refused? Why? @ -None Did you discuss the management of the patient with other professionals (pr ofessionals i.e. , PA, NUT SORTER OPERATOR, lab, RT, psych nurse, social media analyst, van driver helper, teacher, court registry officer, case making machine operator)? Give summary @ -No Was smoking cessation discussed for >3mins.? @ -No Was critical care preformed (if so, how long)? @ -No Were there social determinants of health that impacted care today? How? (Homelessness, low income, unemployed, alcoholism, drug addiction, transportation, low edu. Level, literacy, decrease access to med. care, alf, rehab)? @ -No Was there de-escalation of care discussed even if they declined (Discuss DNR or withdrawal of care, Hospice)? DNR status @ -No What co-morbidities impacted this encounter? (DM, HTN, Smoking, COPD, CAD, Cancer, CVA, ARF, Chemo, Hep., AIDS, mental health diagnosis, sleep apnea, morbid obesity)? @ -None Was patient admitted / discharged? Hospital course, mention meds given and route, prescriptions, significant lab abnormalities, going to OR and other pertinent info. @ -Patient had no osseous abnormality. Patient was given a knee immobilizer and was able to ambulate without problem with adequate on. Patient had a shot of Toradol she stated it helped her pain. Undiagnosed new problem with uncertain prognosis? @ -No Drug Therapy requiring intensive monitoring for toxicity (Heparin, Nitro, Insulin, Cardizem)? @ -No Were any procedures done? @ -No Diagnosis/symptom? @ -Knee strain Acute, or Chronic, or Acute on Chronic? @ -Acute Uncomplicated (without systemic symptoms) or Complicated (systemic symptoms)? @ -Uncomplicated Side effects of treatment? @ -No Exacerbation, Progression, or Severe Exacerbation? @ -No Poses a threat to life or bodily function? How? (Chest pain, USA, PA, pneumonia, PE, COPD, DKA, ARF, appy, cholecystitis, CVA, Diverticulitis, Homicidal, Suicidal, threat to staff... and all critical care pts) @ -No Disposition Clinical Impression: Fall, Knee sprain Disposition: HOME SELF-CARE Condition: Good Instructions (If sedation given, give patient instructions): Knee Sprain (DC), Fall Prevention (ED) Prescriptions: Ibuprofen [Motrin] 600 mg PO Q6HR PRN #20 tab PRN Reason: For pain Is patient prescribed a controlled substance at d/c from ED?: No Referrals: Adrian Bragg MD [Primary Care Provider] - 1-2 days Time of Disposition: 13:44
[2023-03-01 12:38] VITALS: RESP 18
--- NOTE | 2023-03-01 13:10 | XR ---
EXAMINATION TYPE: XR knee complete RT DATE OF EXAM: 03/01/2023 12:56 PM CLINICAL INDICATION:Female, 73 years old with history of Trauma; COMPARISON: None. TECHNIQUE: The Right knee(s) was examined in Frontal, lateral and oblique projections. FINDINGS: No evidence of any acute osseous pathology. There is a small joint effusion. Tricompartme ntal osteophyte formation involving the femoral condyles, tibial plateau and patella. Mild joint spac e narrowing. IMPRESSION: 1. No acute osseous pathology. 2. Small joint effusion correlate consider further evaluation with MRI. 3. Mild tricompartmental osteoarthritic changes.
[2023-03-01 14:03] VITALS: BP 116/80; PULSE 56
== END 2023-03-01 13:55 | disposition home or self-care (01) ==
LOC: EC 12:04
DX: S83.91XA Sprain of unspecified site of right knee, initial encounter (principal); J44.9 Chronic obstructive pulmonary disease, unspecified; E07.9 Disorder of thyroid, unspecified; F32.A Depression, unspecified; F17.200 Nicotine dependence, unspecified, uncomplicated; F12.90 Cannabis use, unspecified, uncomplicated; Z88.5 Allergy status to narcotic agent; Z88.8 Allergy status to other drugs, medicaments and biological substances; Z79.890 Hormone replacement therapy; Z79.51 Long term (current) use of inhaled steroids; Z79.899 Other long term (current) drug therapy; W01.0XXA Fall on same level from slipping, tripping and stumbling without subsequent striking against object, initial encounter
CPT/HCPCS: 73562; 99284; 96374; L1830; J1885

== ENCOUNTER → 2023-03-29 | Outpatient (CLI) | payer MEDICARE, OTHER ==
--- NOTE | 2023-03-29 13:15 | MM ---
Reason for Exam: Follow-up at short interval from prior study. Last screening mammogram was performed 7 month(s) ago. Patient History: Menarche at age 19. First Full-Term at age 21. Hysterectomy at age 47. Postmenopausal. Breast cancer, left, age 69. 09/20/2022, Benign MG stereo VAD BX LT on the left side. Benign Cyst Aspiration on the right side. Benign Excisional Biopsy on the left side. 12/08/2019, Malignant Core Biopsy on the left side. 09/11/2019, Benign Core Biopsy on the left side. 2019, Chemotherapy. 2019, Radiation Therapy on the left side. 01/25/2020, MG discontinued stereo core LT on the left side. Maternal aunt had breast cancer. Prior Study Comparison: 08/23/2021 Bilateral Diagnostic Mammogram, [facility]. 08/24/2022 Bilateral MG screening mammo w CAD, [facility]. 08/28/2022 Left MG 3D work up w/cad LT, [facility]. Tissue Density: Left: The breast tissue is heterogeneously dense. This may lower the sensitivity of mammography. Findings: Analyzed By CAD. Postbiopsy changes posterior left breast. Benign calcifications are stable. No new calcifications seen. No evidence for mass. Overall Assessment: Benign, BI-RAD 2 Management: Screening Mammogram of both breasts in 6 months. . Results were given to the patient verbally at the time of exam. Patient should continue monthly self-breast exams. A clinical breast exam by your physician is recommended on an annual basis. This exam should not preclude additional follow-up of suspicious palpable abnormalities. Note on Kaylan scores and lifetime risk: 1. A Kaylan score greater than 3% is considered moderate risk. If this is the case, consider specialist referral to assess eligibility for a risk reducing agent. 2. If overall lifetime risk for the development of breast cancer is 20% or higher, the patient may qualify for future screening with alternating mammogram and breast MRI. Electronically signed and approved by: Braulio Doll M.D. Radiologis
== END | disposition home or self-care (01) ==
LOC: RADMAMWWP 12:45
PROVIDERS: ATTEND Surgery
DX: R92.332 Mammographic heterogeneous density, left breast (principal); R92.1 Mammographic calcification found on diagnostic imaging of breast; Z78.0 Asymptomatic menopausal state; Z80.3 Family history of malignant neoplasm of breast
CPT/HCPCS: 77061; 77065

== ENCOUNTER → 2023-04-04 | Outpatient (CLI) | payer MEDICARE, OTHER ==
[2023-04-04 14:42] VITALS: BP 114/59; PULSE 64; RESP 18
--- NOTE | 2023-04-04 15:00 | P.PN ---
Subjective Progress Note Date: 04/04/23 Principal diagnosis: Fibrocystic breast changes abnormal mammogram of the left breast Lorie is a 73-year-old white femal seen in consultation for Dr. Parr in 2019 who [place] [address]. This revealed some focal asymmetry with calcifications and additional views of the left breast was recommended. Nothing of concern was noted in the right breast. The patient [place] [id number]. This revealed linear calcifications spanning 9 mm in the lower outer quadrant at middle depth. Biopsy was recommended. The patient did not feel any masses lumps or nodules in her breast. She did complain of some recent intermittent fleeting discomfort in both breasts. [place] [address], the results were felt to be discordant and this led to a needle [place] [address]. 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 She completed chemotherapy and radiation therapy. She did not take any hormone therapy. [place]st [place] on 3323 underwent a bilateral screening mammogram. This led to additional views of the left breast and left breast [place]ot[place] [address]. She is here today with [place] [address] which is benign BIRADS 2. She is not complaining of any new lumps masses or nodules of concern in either breast. Caffeine: none smoke: 6/day smoking since 19, 50 years chocolate: daily Family History: maternal aunt: breast cancer brother: colon/liver/lung cancer Hormonal History: menarche: 19 , first born at 21, breast fed: none menopause: partial hysterectomy at 46, did not take ovaries done for endometriosis BCP: 1 year hormones: none Surgical History: 1. Hysterectomy 2. back surgery 3. left breast biopsy 15 years ago 4. needle biopsy/lumpectomy on the right breast 5. tubaligation Medical History: 1. hypothyroid 2. COPD Social History: smoke: 50 years; 1?PPD now only 6 cigarettes/day alcohol: none drugs: none - Constitutional Constitutional: Reports sweats, Denies chills, Denies fever - EENT Comment: cataract surgery bilateral Eyes: denies blurred vision, denies pain Ears: deny: decreased hearing, tinnitus Ears, nose, mouth and throat: Denies headache, Denies sore throat - Breasts Breasts: bilateral: as per HPI - Cardiovascular Cardiovascular: Reports shortness of breath, Denies chest pain - Respiratory Comment: COPD - Gastrointestinal Gastrointestinal: Denies abdominal pain, Denies diarrhea, Denies nausea, Denies vomiting - Genitourinary (Female) Genitourinary: Denies dysuria, Denies hematuria - Menstruation Menstruation: Reports post hysterectomy - Musculoskeletal Comment: back surgery - Integumentary Integumentary: Denies pruritus, Denies rash - Neurological Neurological: Denies numbness, Denies weakness - Psychiatric Psychiatric: Denies anxiety, Denies depression - Endocrine Comment: hypothyroid - Hematologic/Lymphatic Comment: aspirin - Allergic/Immunologic Allergic/Immunologic: Reports as per HPI Past Medical History Past Medical History: COPD, Thyroid Disorder History of Any Multi-Drug Resistant Organisms: None Reported Past Surgical History: Breast Surgery, Hysterectomy, Tubal Ligation Past Psychological History: No Psychological Hx Reported Smoking Status: Current every day smoker Past Alcohol Use History: None Reported Past Drug Use History: None Reported Medications and Allergies Home Medications Medication Instructions Recorded Confirmed Type Aspirin [Adult Low Dose Aspirin EC] 81 mg PO DAILY 08/24/19 08/24/19 History Famotidine [Pepcid] 40 mg PO HS 08/24/19 08/24/19 History Fluticasone/Umeclidin/Vilanter 1 inhalation INHALATION DAILY 08/24/19 08/24/19 History [Trelegy Ellipta 100-62.5-25] Levothyroxine Sodium [Levoxyl] 75 mcg PO DAILY 08/24/19 08/24/19 History Montelukast [Singulair] 10 mg PO HS 08/24/19 08/24/19 History PARoxetine HCL [Paxil] 40 mg PO DAILY 08/24/19 08/24/19 History Allergies Allergy/AdvReac Type Severity Reaction Status Date / Time meperidine [From Demerol] Allergy Itching Verified 09/10/19 10:09 morphine Allergy Itching Verified 09/10/19 10:09 codeine AdvReac Nausea & Verified 09/10/19 10:09 Vomiting Objective - Vital Signs Vital signs: Vital Signs Temp Pulse 64 04/04/23 14:35 Resp 18 04/04/23 14:35 BP 114/59 04/04/23 14:35 Pulse Ox 95 04/04/23 14:35 FiO2 Intake & Output 04/03/23 04/04/23 04/04/23 18:59 06:59 18:59 Weight 58.06 kg - Constitutional General appearance: Present: cooperative - EENT Eyes: Present: EOMI ENT: Present: hearing grossly normal - Neck Neck: Present: normal ROM - Respiratory Respiratory: bilateral: CTA - Cardiovascular Heart sounds: normal: S1, S2 - Integumentary Integumentary: Present: normal turgor - Musculoskeletal Musculoskeletal: Present: gait normal - Psychiatric Psychiatric: Present: A&O x's 3, appropriate affect, intact judgment & insight - Additional findings Additional findings: breast exam: BRA 40C inspection tattoo left breast, no nipple inversion Palpation: right breast: Multi-positional exam fibrocystic changes, no dominant masses or nodules of concern Right axilla: No adenopathy of concern Left breast: Tattoo, multiple positional exam no dominant masses or nodules of concern Left axilla: No adenopathy of concern Assessment and Plan Assessment: Impression: Patient status post left breast lumpectomy and radiation therapy/chemotherapy no evidence of recurrent cancer Plan: Follow-up medical oncology Bilateral mammogram in 6 months with appointment here Follow-up radiation oncology CC: Dr. Adrian Bragg
== END ==
LOC: WWCWWP 13:53
PROVIDERS: ATTEND Surgery
DX: N60.11 Diffuse cystic mastopathy of right breast (principal); J44.9 Chronic obstructive pulmonary disease, unspecified; E03.9 Hypothyroidism, unspecified; F17.210 Nicotine dependence, cigarettes, uncomplicated; Z79.890 Hormone replacement therapy; Z85.3 Personal history of malignant neoplasm of breast; Z80.3 Family history of malignant neoplasm of breast; Z92.21 Personal history of antineoplastic chemotherapy; Z88.5 Allergy status to narcotic agent; Z92.3 Personal history of irradiation; Z88.8 Allergy status to other drugs, medicaments and biological substances; Z79.899 Other long term (current) drug therapy

== ENCOUNTER 2023-05-24 00:05 | Emergency (ER) | payer MEDICARE, OTHER ==
[2023-05-24] MEDS ORDERED: SODIUM CHLORIDE 0.9% 1,000 ML IV STA ×3 (00:11→00:49)
[2023-05-24] MEDS ORDERED: DIPH,PERTUS(ACELL)TETVAC-LF 0.5 ML VIAL IM ONE (00:11)
[2023-05-24 00:20] LABS: Glucose,Whole Blood 242 mg/dL (70-110)
[2023-05-24] MEDS ORDERED: NOREPINEPHRINE 4 MG in SODIUM CHLORIDE 0.9% 250 ML IV ONE ×2 (00:30→00:45)
--- NOTE | 2023-05-24 00:34 | XR ---
EXAM: XR Pelvis, 1 or 2 Views CLINICAL HISTORY: Trauma TECHNIQUE: Frontal view of the pelvis. COMPARISON: No relevant prior studies available. FINDINGS: Bones/joints: No acute fracture. Incidental degenerative changes of the inferior lumbar spine. No dislocation. Soft tissues: Unremarkable. IMPRESSION: No acute osseous traumatic injury involving the pelvis.
--- NOTE | 2023-05-24 00:40 | XR ---
EXAM: XR Chest, 1 View CLINICAL HISTORY: ITS.REASON XR Reason: trauma TECHNIQUE: Frontal view of the chest. COMPARISON: No relevant prior studies available. FINDINGS: Lungs: Asymmetric elevation of the right hemidiaphragm is similar to the previous CT examination of the abdomen performed 01/06/2021. No focal airspace contusive injury or focal consolidation. The pulmonary vasculature demonstrates no significant radiographic abnormality. Pleural space: No definite pleural effusion or pneumothorax, accounting for supine technique. Heart: Unremarkable. No cardiomegaly. Mediastinum: The hilar structures are presumed vascular. No mediastinal widening. The trachea is midline. Bones/joints: No acute osseous abnormality clearly evident. Soft tissues: Surgical clips overlying the left chest wall were present on this previous CT examination. Tubes, lines and devices: The endotracheal tube (ETT) is in satisfactory position with tip 4 cm above the sugey. IMPRESSION: No radiographic evidence for significant acute traumatic injury involving the chest/thorax. The endotracheal tube is 4 cm from the sugey.
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
--- NOTE | 2023-05-24 01:07 | P.PCN ---
Date of Procedure: 05/24/23 Procedure(s) Performed: PREOPERATIVE DIAGNOSIS: Poor IV access POSTOPERATIVE DIAGNOSIS: Same PROCEDURE: Triple lumen catheter placement SURGEON: Joseline EBL: 2 mL ANESTHESIA: Local COMPLICATIONS: None OPERATIVE PROCEDURE: The patient was intubated after arrival. Right groin was prepped and draped sterilely. Skin localized with lidocaine. Seldinger needle was used to access the right femoral vein. Nonpulsatile blood return was encountered. Guidewire was advanced without difficulty. Needle was withdrawn. Small skin incision made at the wire entrance site. Tract was dilated using the dilator. Triple lumen catheter was threaded over the wire. Wire was then removed. All 3 ports of the catheter were flushed with saline after withdrawing air. Catheter was sutured to the skin using 3 separate 3-0 silk sutures. Sterile dressings were applied.
[2023-05-24 01:08] VITALS: TEMP 97.9
[2023-05-24 01:23] LABS: ABG Base Excess -7.6 mmol/L; ABG HCO3 20 mmol/L (21-25); ABG Oxygen Saturation 99.3 % (94-97); ABG PCO2 44 mmHg (35-45); ABG PH 7.26 (7.35-7.45); ABG PO2 305 mmHg (83-108); ABG TCO2 21 mmol/L (19-24); Allen Test Performed? Yes
[2023-05-24 01:26] LABS: HCT 31.4 % (34.0-46.0); HGB 10.2 gm/dL (11.4-16.0); MCHC 32.6 g/dL (31.0-37.0); MCV 101.1 fL (80.0-100.0); Macrocytosis Slight; Mean Platelet Volume 7.6; Platelet Count 234 k/uL (150-450); RDW 14.3 % (11.5-15.5); WBC 9.9 k/uL (3.8-10.6)
[2023-05-24 01:37] LABS: ALT 44 U/L (4-34); AST 37 U/L (14-36); African American GFR (CKD) >90 (>60 ml/min/1.73 sqM); Albumin 2.9 g/dL (3.5-5.0); Alcohol <10 mg/dL; Alkaline Phosphatase 78 U/L (38-126); Anion Gap 20 mmol/L; Blood Urea Nitrogen 11 mg/dL (7-17); Carbon Dioxide 14 mmol/L (22-30); Chloride 108 mmol/L (98-107); Glucose 167 mg/dL (74-99); Non-African American GFR(CKD) 80 (>60 ml/min/1.73 sqM); Sodium 142 mmol/L (137-145); Total Bilirubin 0.4 mg/dL (0.2-1.3); Total Protein 5.3 g/dL (6.3-8.2)
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
[2023-05-24 01:46] LABS: INR 1.1 (<1.2); Partial Thromboplastin Time 20.1 sec (22.0-30.0); Prothrombin Time 12.2 sec (10.0-12.5)
[2023-05-24 01:55] VITALS: RESP 20
[2023-05-24 01:58] LABS: Potassium 2.5 mmol/L (3.5-5.1)
[2023-05-24 02:19] LABS: Hyaline Casts,Urine 33 /lpf (0-2); Mucus,Urine Few /hpf; RBC,Urine 6 /hpf (0-5); Squamous Epithelial Cell,Urine 2 /hpf (0-4); WBC,Urine 3 /hpf (0-5)
[2023-05-24 02:28] LABS: Amphetamine Screen,Urine Not Detected (NotDetected); Appearance,Urine Clear (Clear); Barbiturate Screen,Urine Not Detected (NotDetected); Benzodiazepines Screen,Urine Not Detected (NotDetected); Cocaine Screen,Urine Not Detected (NotDetected); Color,Urine Yellow; Methadone Screen, Urine Not Detected (NotDetected); Opiate Screen,Urine Not Detected (NotDetected); Oxycodone Screen, Urine Not Detected (NotDetected); PH, Urine 6.5 (5.0-8.0); Phencyclidine Screen,Urine Not Detected (NotDetected); Protein,Urine 1+ (Negative); Tricyclic Antidepressant,Urine Detected (NotDetected); Urn Cannabinoid Scrn Not Detected (NotDetected)
[2023-05-24 02:29] LABS: Bilirubin,Urine Negative (Negative); Blood,Urine Small (Negative); Glucose,Urine (UA) Negative (Negative); Ketones,Urine Negative (Negative); Leukocyte Esterase,Urine Negative (Negative); Nitrite,Urine Negative (Negative)
[2023-05-24 03:18] LABS: Lymphocytes # (M) 5.05 k/uL (1.0-4.8); Neutrophils # (M) 4.26 k/uL (1.3-7.7); Neutrophils % (M) 43 %; Nucleated Red Blood Cells 0 /100 WBC (0-0); RBC Morphology Normal; Total Cells Counted 100
[2023-05-24 04:35] VITALS: BP 87/68; PULSE 137
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
== END 2023-05-24 02:00 | disposition other institution (70) ==
LOC: EC 00:05
DX: T20.27XA Burn of second degree of neck, initial encounter (principal); T24.211A Burn of second degree of right thigh, initial encounter; T31.0 Burns involving less than 10% of body surface; J68.9 Unspecified respiratory condition due to chemicals, gases, fumes and vapors; J96.91 Respiratory failure, unspecified with hypoxia; E87.20 Acidosis, unspecified; E87.6 Hypokalemia; I45.10 Unspecified right bundle-branch block; I95.9 Hypotension, unspecified; J44.9 Chronic obstructive pulmonary disease, unspecified; E07.9 Disorder of thyroid, unspecified; F32.A Depression, unspecified; F17.200 Nicotine dependence, unspecified, uncomplicated; F12.90 Cannabis use, unspecified, uncomplicated; Z79.890 Hormone replacement therapy; Z79.51 Long term (current) use of inhaled steroids; Z79.899 Other long term (current) drug therapy; Z88.5 Allergy status to narcotic agent; Z88.8 Allergy status to other drugs, medicaments and biological substances; X00.0XXA Exposure to flames in uncontrolled fire in building or structure, initial encounter
CPT/HCPCS: 36415; 94002; 86900; 86901; 80053; 82805; 83605; 84484; 85025; 85610; 85730; 86850; 81001; 80306; 80320; 72170; 71045; 72125; 70450; 99291; 31500; 36556; 96365; 96367; L0120; J0690; J2704